=== PATIENT | male | born 1955 ===

== ENCOUNTER 2018-02-17 10:03 | Inpatient (IN) | payer OTHER ==
[2018-02-17 10:04] VITALS: BMI 30.7
[2018-02-17] MEDS ORDERED: HYDROmorphone 1 mg/ml ISec IVP STA (10:10)
[2018-02-17] MEDS ORDERED: TDAP Vaccine 0.5 mL Syr IM ONE (10:11)
[2018-02-17] MEDS ORDERED: Sodium Chloride 0.9% 500 ML IV ONE (10:11)
[2018-02-17 10:39] LABS: BASO # 0.03 K/mm3 (0.0-2.0); BASO % 0.3 % (0.0-3.0); EOS # 0.5 (0.0-0.7); EOS % 5.8 % (1.5-5.0); GRAN # 3.79 (1.4-6.5); GRAN % 42.1 % (50.0-68.0); HEMOGLOBIN 14.9 g/dL (14.0-18.0); LYMPH % 44.6 % (22.0-35.0); MEAN CELL VOLUME 84.6 fl (80.0-105.0); MEAN CORPUSCULAR HEMOGLOBIN 28.7 pg (25.0-35.0); MEAN CORPUSCULAR HGB CONC 33.9 g/dl (31.0-37.0); MEAN PLATELET VOLUME 10.4 fl (7.0-11.0); MONO # 0.7 (0.1-0.6); MONO % 7.2 % (1.0-6.0); RBC 5.2 10^6/uL (3.5-6.1)
--- NOTE | 2018-02-17 10:42 | ED PDOC ---
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 Patient states he was in his rig and was attempting to open the truck door when he fell backwards, sustaining injury to his right upper leg and an abrasion to his upper lip from hitting the truck. Patient denies any head injury or any loss of consciousness. Patient denies any neck or back pain. Patient denies any chest pain, SOB, headache or dizziness. Patient denies any other somatic complaints. Patient admits to occasional drinking but denies any smoking cigarettes. 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 No other trauma. Past Medical History - Provider Review Nursing Documentation Reviewed: Yes Family/Social History - Physician Review Nursing Documentation Reviewed: Yes Family/Social History: Unknown Family HX Smoking Status: Never Smoked Hx Alcohol Use: Yes Frequency of alcohol use: Socially Hx Substance Use: No Allergies/Home Meds Allergies/Adverse Reactions: Allergies No Known Allergies Allergy (Verified 02/17/18 10:08) Review of Systems - Physician Review All systems were reviewed & negative as marked: Yes - Review of Systems Constitutional: absent: Fevers Respiratory: absent: SOB, Cough Cardiovascular: absent: Chest Pain Gastrointestinal: absent: Abdominal Pain, Diarrhea, Nausea, Vomiting Musculoskeletal: Other (right upper leg discomfort). absent: Back Pain, Neck Pain Skin: Other (abrasion to left sided upper lip) Neurological: absent: Headache, Dizziness, Focal Weakness Physical Exam Vital Signs Reviewed: Yes Vital Signs Temp Pulse Resp BP Pulse Ox 02/17/18 10:09 98.0 F 85 20 151/102 H 100 Temperature: Afebrile Blood Pressure: Hypertensive Pulse: Regular Respiratory Rate: Normal Appearance: Positive for: Well-Appearing, Non-Toxic, Uncomfortable Pain Distress: Severe Mental Status: Positive for: other (awake and alert) - Systems Exam Head: Present: Atraumatic, Normocephalic Pupils: Present: PERRL Extroacular Muscles: Present: EOMI Conjunctiva: Present: Normal Mouth: Present: Moist Mucous Membranes Neck: Present: Normal Range of Motion. No: MIDLINE TENDERNESS, Paraspinal Tenderness Respiratory/Chest: Present: Clear to Auscultation, Good Air Exchange. No: Respiratory Distress, Accessory Muscle Use Cardiovascular: Present: Regular Rate and Rhythm, Normal S1, S2. No: Murmurs Abdomen: No: Tenderness, Distention, Peritoneal Signs, Rebound, Guarding Back: Present: Normal Inspection. No: CVA Tenderness, Paraspinal Tenderness Upper Extremity: Present: Normal Inspection. No: Cyanosis, Edema Lower Extremity: Present: NORMAL PULSES, Tenderness (tenderness to right thigh ), Swelling (swelling to right thigh with deformity), Deformity, Neurovascularly Intact. No: Edema Neurological: Present: GCS=15, CN II-XII Intact, Speech Normal, Motor Func Grossly Intact Skin: Present: Warm, Dry, Normal Color. No: Rashes Psychiatric: Present: Alert, Oriented x 3, Normal Insight, Normal Concentration Medical Decision Making ED Course and Treatment: 02/17/18 10:30 Impression: 62 year old male presents to the ED complaining of right upper leg discomfort s/p fall. Plan: -- Labs -- EKG -- Chest X-ray -- Tdap -- X-ray of right femur -- X-ray of Pelvis -- UA Progress Notes: 02/17/18 12:03 EKG shows normal sinus rhythm rate approximately [address] or T-wave changes. 02/17/18 12:42 Orthopedist, , is scrubbed and we are waiting for a call back. - RAD Interpretation Radiology Orders: 02/17/18 10:11 Femur Right [FEMUR MIN 2 VIEWS RT] [RAD] Stat 02/17/18 10:12 CHEST ONE VIEW [RAD] Stat PELVIS ONE VIEW [RAD] Stat - Medication Orders Current Medication Orders: Sodium Chloride (Sodium Chloride 0.9%) 500 mls @ 500 mls/hr IV ONCE ONE Stop: 02/17/18 11:10 Last Admin: 02/17/18 10:22 Dose: 500 mls/hr eMAR Start Stop Document 02/17/18 10:22 KV (Rec: 02/17/18 10:22 KV [employer] [facility] [employer]-ER-[id number]) Intravenous Solution Start Date 02/17/18 Start Time 10:22 Discontinued Medications Hydromorphone HCl (Dilaudid) 1 mg IVP STAT STA Stop: 02/17/18 10:11 Last Admin: 02/17/18 10:29 Dose: 1 mg MAR Pain Assessment Document 02/17/18 10:29 KV (Rec: 02/17/18 10:30 KV [employer] [facility] [employer]-ER-21) Pain Reassessment Is this a pain reassessment? No Sleep Is patient sleeping during reassessment? No Presence of Pain Presence of Pain Yes Pain Scale Used Protocol: PSCALES Pain Scale Used Numeric Location Left, Right or Bilateral Right Pain Location Body Site Leg Description Description Constant Intensity of Pain at present 10 Pain Behavior Crying Guarding Irritability Alleviating Factors/Management Medication Techniques Alleviating Factors Medication IVP Administration Document 02/17/18 10:29 KV (Rec: 02/17/18 10:30 KV [employer] [facility] [employer]-ER-21) Charges for Administration # of IVP Administrations 1 Ondansetron HCl (Zofran Inj) 4 mg IVP ONCE ONE Stop: 02/17/18 10:12 Last Admin: 02/17/18 10:20 Dose: 4 mg IVP Administration Document 02/17/18 10:20 KV (Rec: 02/17/18 10:20 KV [employer] [facility] [employer]-ER-21) Charges for Administration # of IVP Administrations 1 Tetanus/Reduced Diphtheria/Acell Pertussis (Boostrix Vaccine Inj) 0.5 ml IM .ONCE ONE Stop: 02/17/18 10:12 Last Admin: 02/17/18 10:20 Dose: 0.5 ml - Scribe Statement The provider has reviewed the documentation as recorded by the Scribe Steven Cruz. All medical record entries made by the Scribe were at my direction and persona lly dictated by me. I have reviewed the chart and agree that the record accurately reflects my personal performance of the history, physical exam, medical decision making, and the department course for this patient. I have also personally directed, reviewed, and agree with the discharge instructions and disposition. Disposition/Present on Arrival - Present on Arrival Any Indicators Present on Arrival: No History of DVT/PE: No History of Uncontrolled Diabetes: No Urinary Catheter: No History of Decub. Ulcer: No History Surgical Site Infection Following: None - Disposition Have Diagnosis and Disposition been Completed?: Yes Diagnosis: Femur fracture, right Disposition: HOSPITALIZED Disposition Time: 11:12 Patient Plan: Admission Patient Problems: Current Active Problems Problem Status Onset Femur fracture, right Acute Condition: FAIR
[2018-02-17 10:43] LABS: PARTIAL THROMBOPLASTIN TIME 25.4 Seconds (25.1-36.5); PROTHROMBIN TIME 11.5 SECONDS (9.4-12.5)
[2018-02-17 10:50] LABS: ALB/GLOB RATIO 1.5 (1.1-1.8); ALBUMIN 4.5 g/dL (3.0-4.8); ALT/SGPT 40 U/L (7-56); AST/SGOT 31 U/L (17-59); BLOOD UREA NITROGEN 14 mg/dL (7-21); CALCIUM 9.4 mg/dL (8.4-10.5); GFR NON-AFRICAN AMERICAN > 60
[2018-02-17 11:01] LABS: TROPONIN I < 0.01 ng/mL
--- NOTE | 2018-02-17 11:35 | CP.PCM.HP ---
<Alexey Gimenez - Last Filed: 02/17/18 14:08> History of Present Illness - History of Present Illness History of Present Illness: Alexey Gimenez, PGY1 H&P for Dr. Kessler cc: Right lower extremity pain s/p fall Patient is a 62 year old [place]-speaking male(scabbler used for interpretation) with no significant PMHx who presented to the ED complaining of severe right lower extremity pain s/p fall. 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 Patient also had an abrasion to the upper lip as he fell and hit the truck. Patient denies any trauma to the head. He denies any loss of consciousness. Patient does not recall the downtime of the incident. In the ED, vital signs were stable except for BP 151/102. Patient had CXR which was negative for acute pathology. Labs were unremarkable. Patient had xray of the right femur which showed a comminuted displaced fracture of the proximal shaft of the femur with separation of the lesser trochanter. In the ED, patient was given dilaudid 1mg IVP which he said helped with his pain. He endorses R- hip/lower extremity pain with tingling the both legs. Denies cp, sob, night sweats, lightheadedness, dizziness, or fatigue. A full 12 point ROS was conducted and unremarkable except as stated above. 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 Denies smoking. Patient drinks socially. Denies recreational drug use. FHx: non-contributory. Present on Admission - Present on Admission Any Indicators Present on Admission: No History of DVT/PE: No History of Uncontrolled Diabetes: No Urinary Catheter: No Decubitus Ulcer Present: No Review of Systems - Review of Systems All systems: reviewed and no additional remarkable complaints except (as per HPI.) Past Patient History - Past Social History Smoking Status: Never Smoked - PSYCHIATRIC Hx Substance Use: No - SURGICAL HISTORY Hx Surgeries: No - ANESTHESIA Hx Anesthesia: No Meds Allergies/Adverse Reactions: Allergies Allergy/AdvReac Type Severity Reaction Status Date / Time No Known Allergies Allergy Verified 02/17/18 10:08 Physical Exam - Constitutional Appears: In Acute Distress - Head Exam Additional comments: Patient has a laceration at the upper lip. Minimal blood. No other lacerations were noted. - Eye Exam Eye Exam: EOMI, Normal appearance, PERRL Pupil Exam: NORMAL ACCOMODATION, PERRL - ENT Exam ENT Exam: Mucous Membranes Moist, Normal Exam - Respiratory Exam Respiratory Exam: Clear to Auscultation Bilateral, NORMAL BREATHING PATTERN. absent: Rales, Rhonchi, Wheezes - Cardiovascular Exam Cardiovascular Exam: REGULAR RHYTHM, +S1, +S2 - GI/Abdominal Exam GI & Abdominal Exam: Normal Bowel Sounds, Soft. absent: Firm, Guarding, Rebound, Rigid, Tenderness - Extremities Exam Extremities exam: Positive for: tenderness, pedal pulses present. Negative for: full ROM Additional comments: Limited ROM of the right lower extremity. Patient keeps his right leg in external rotation. Pain with movement of the extremity. Distal LE pulses are intact, +2. Sensation is intact bilaterally. - Back Exam Back exam: NORMAL INSPECTION - Skin Skin Exam: Dry, Intact, Normal Color, Warm Results - Vital Signs Recent Vital Signs: Last Vital Signs Temp 98.0 F 02/17/18 10:09 Pulse 85 02/17/18 10:09 Resp 20 02/17/18 10:09 BP 151/102 H 02/17/18 10:09 Pulse Ox 100 02/17/18 10:09 - Labs Result Diagrams: 02/17/18 10:15 02/17/18 10:15 Labs: Laboratory Results - last 24 hr 02/17/18 02/17/18 02/17/18 10:15 10:15 10:15 WBC 9.0 RBC 5.20 Hgb 14.9 Hct 44.0 MCV 84.6 MCH 28.7 MCHC 33.9 RDW 13.0 Plt Count 244 MPV 10.4 Gran % 42.1 L Lymph % (Auto) 44.6 H [place] % (Auto) 7.2 H Eos % (Auto) 5.8 H Baso % (Auto) 0.3 Gran # 3.79 Lymph # (Auto) 4.0 H [place] # (Auto) 0.7 H Eos # (Auto) 0.5 Baso # (Auto) 0.03 PT 11.5 INR 1.00 APTT 25.4 Sodium 138 Potassium 3.9 Chloride 103 Carbon Dioxide 22 Anion Gap 17 BUN 14 Creatinine 0.9 Est GFR ( Amer) > 60 Est GFR (Non-Af Amer) > 60 Random Glucose 182 H Calcium 9.4 Magnesium 1.8 Total Bilirubin 0.7 AST 31 ALT 40 Alkaline Phosphatase 83 Lactate Dehydrogenase 480 Total Creatine Kinase 117 Troponin I < 0.01 Total Protein 7.6 Albumin 4.5 Globulin 3.1 Albumin/Globulin Ratio 1.5 Assessment & Plan - Assessment and Plan (Free Text) Assessment: Patient is a 62 year old [place]-speaking male (scabbler used for interpretation) with no significant PMHx who presented to the ED complaining of severe right lower extremity pain s/p fall from a rig. Patient's XR of the R- femur showed a comminuted displaced fracture of the proximal shaft of the femur with separation of the lesser trochanter. Plan: Displaced Right proximal shaft femoral fracture s/p fall - Ortho was consulted (Dr. Kat). Patient will need to go to OR. Case was discussed with Orthopedic surgeon. - morphine 4mg IVP q4 for right lower extremity pain. - NPO - EKG: NSR, 90 bpm with no acute ST or T wave changes - 1/2 NS @ rate of 100 ms/hr - Xray of the right femur: comminuted displaced fracture of the proximal shaft of the femur with separation of the lesser trochanter - Given dalaudid 1mg IVP in the ED - Patient also has laceration on the upper lip due to fall; no surgical intervention is required at this time HTN 2/2 pain - BP 151/102 GI ppx: PTX Case was reviewed and discussed with Attending Physician, Dr. Kessler. <Nicole Kessler - Last Filed: 02/17/18 18:00> Results - Vital Signs Recent Vital Signs: Last Vital Signs Temp 99 F 02/17/18 14:00 Pulse 107 H 02/17/18 14:00 Resp 16 02/17/18 14:12 BP 140/90 02/17/18 14:00 Pulse Ox 100 02/17/18 14:00 - Labs Result Diagrams: 02/17/18 10:15 02/17/18 10:15 Labs: Laboratory Results - last 24 hr 02/17/18 02/17/18 02/17/18 10:15 10:15 10:15 WBC 9.0 RBC 5.20 Hgb 14.9 Hct 44.0 MCV 84.6 MCH 28.7 MCHC 33.9 RDW 13.0 Plt Count 244 MPV 10.4 Gran % 42.1 L Lymph % (Auto) 44.6 H [place] % (Auto) 7.2 H Eos % (Auto) 5.8 H Baso % (Auto) 0.3 Gran # 3.79 Lymph # (Auto) 4.0 H [place] # (Auto) 0.7 H Eos # (Auto) 0.5 Baso # (Auto) 0.03 PT 11.5 INR 1.00 APTT 25.4 Sodium 138 Potassium 3.9 Chloride 103 Carbon Dioxide 22 Anion Gap 17 BUN 14 Creatinine 0.9 Est GFR ( Amer) > 60 Est GFR (Non-Af Amer) > 60 Random Glucose 182 H Calcium 9.4 Magnesium 1.8 Total Bilirubin 0.7 AST 31 ALT 40 Alkaline Phosphatase 83 Lactate Dehydrogenase 480 Total Creatine Kinase 117 Troponin I < 0.01 Total Protein 7.6 Albumin 4.5 Globulin 3.1 Albumin/Globulin Ratio 1.5 Blood Type Blood Type Confirm Antibody Screen BBK History Checked 02/17/18 02/17/18 10:15 10:25 WBC RBC Hgb Hct MCV MCH MCHC RDW Plt Count MPV Gran % Lymph % (Auto) [place] % (Auto) Eos % (Auto) Baso % (Auto) Gran # Lymph # (Auto) [place] # (Auto) Eos # (Auto) Baso # (Auto) PT INR APTT Sodium Potassium Chloride Carbon Dioxide Anion Gap BUN Creatinine Est GFR ( Amer) Est GFR (Non-Af Amer) Random Glucose Calcium Magnesium Total Bilirubin AST ALT Alkaline Phosphatase Lactate Dehydrogenase Total Creatine Kinase Troponin I Total Protein Albumin Globulin Albumin/Globulin Ratio Blood Type O POSITIVE Blood Type Confirm O POSITIVE Antibody Screen Negative BBK History Checked No verified bt Attending/Attestation - Attestation I have personally seen and examined this patient.: Yes I have fully participated in the care of the patient.: Yes I have reviewed all pertinent clinical information: Yes Notes (Text): 02/17/18 17:54 62 year old male with no significant past medical history who presented s/p fall from his truck. He was found to have a comminuted displaced fracture of the proximal shaft of the femur with separation of the lesser trochanter on xray. CT hip is ordered. CXR was negative and EKG showed sinus rhythm without any ischemic signs. Orthopedics is notified for possible OR. Continue with NPO for now with morphine prn. Elevated BP likely secondary to pain. Will monitor for now. Nicole Kessler MD Hospitalist.
--- NOTE | 2018-02-17 11:36 | RAD ---
Date of service: 02/17/2018 PROCEDURE: CHEST RADIOGRAPH, 1 VIEW HISTORY: OR COMPARISON: None available. FINDINGS: LUNGS: Clear. PLEURA: No pneumothorax or pleural fluid seen. CARDIOVASCULAR: No aortic atherosclerotic calcification present. Mild cardiomegaly OSSEOUS STRUCTURES: No significant abnormalities. VISUALIZED UPPER ABDOMEN: Normal. OTHER FINDINGS: None. IMPRESSION: No active disease.
--- NOTE | 2018-02-17 12:00 | RAD ---
Date of service: 02/17/2018 PROCEDURE: Right femur HISTORY: trauma COMPARISON: TECHNIQUE: Three views FINDINGS: There is a comminuted displaced fracture of the proximal shaft of the humerus with separation of the lesser trochanter. The femoral neck and greater trochanter are intact. The distal femur is unremarkable IMPRESSION: As above
[2018-02-17] MEDS: Morphine 4 mg/ml ISec IVP PRN ×2 (14:30→21:19)
[2018-02-17] MEDS: Sodium Chloride 0.45% 1,000 ML IV SCH (16:40)
--- NOTE | 2018-02-17 18:03 | RAD ---
Date of service: 02/17/2018 PROCEDURE: Right femur HISTORY: s/p fall; R-femur fx COMPARISON: February 17, 2018 TECHNIQUE: Standard protocol for this study/examination. FINDINGS: Comminuted proximal right femoral fracture better visualized on concurrent CT scan. IMPRESSION: Acute, comminuted fracture proximal right femur.
--- NOTE | 2018-02-17 18:03 | CT ---
Date of service: 02/17/2018 PROCEDURE: CT right lower extremity HISTORY: fall with r-femur fx COMPARISON: February 17, 2018 TECHNIQUE: 2.5 mm axial acquisition and display. Coronal and sagittal reconstructions. Dose report (mGy-cm): 656.94 FINDINGS: Oblique, comminuted fracture through the proximal right femur. Avulsion of the lesser trochanter. 1 shaft's with overriding of the major fracture fragments. A component of impaction identified. Edematous changes within the adductor muscles likely reflects a component of hemorrhage. Preservation of femoral acetabular relationship. Degenerative changes right hip. IMPRESSION: Acute common comminuted fracture proximal left femur described in greater detail above. Edematous changes primarily within adductor musculature. If compartment syndrome is suspected follow-up imaging advised.
--- NOTE | 2018-02-17 19:54 | CARD ---
APPROVED REPORT Date of service: 02/17/2018 EKG Measurement Heart [id number] <Conclusion> Normal sinus rhythm Normal ECG
[2018-02-18] MEDS: Sodium Chloride 0.45% 1,000 ML IV SCH (03:40)
[2018-02-18] MEDS: Morphine 4 mg/ml ISec IVP PRN ×2 (04:36→10:49)
[2018-02-18 07:15] LABS: HEMOGLOBIN 12.9 g/dL (14.0-18.0); MEAN CELL VOLUME 84.8 fl (80.0-105.0); MEAN CORPUSCULAR HGB CONC 33.1 g/dl (31.0-37.0); MEAN PLATELET VOLUME 10.2 fl (7.0-11.0); RBC 4.6 10^6/uL (3.5-6.1); RED CELL DISTRIBUTION WIDTH 13.3 % (11.5-14.5); WHITE BLOOD COUNT 10.1 10^3/uL (4.5-11.0)
[2018-02-18 07:23] LABS: ALB/GLOB RATIO 1.3 (1.1-1.8); ALBUMIN 3.6 g/dL (3.0-4.8); ALT/SGPT 39 U/L (7-56); AST/SGOT 33 U/L (17-59); BLOOD UREA NITROGEN 11 mg/dL (7-21); CALCIUM 8.6 mg/dL (8.4-10.5); GFR NON-AFRICAN AMERICAN > 60
--- NOTE | 2018-02-18 16:35 | CP.PCM.PN ---
<Alexey Gimenez - Last Filed: 02/18/18 16:31> Subjective - Date & Time of Evaluation Date of Evaluation: 02/18/18 Time of Evaluation: 07:00 - Subjective Subjective: Alexey Gimenez PGY1 Medicine Progress Note for Dr. Monroy Patient was seen and examined at bedside this morning. Vital signs stable. No acute overnight events. Patient is still c/p right leg pain and numbness and tingling in the lower extremities. Patient denies cp, sob, abdominal pain, n/v/d. Patient was told that he would be going for orthopedic surgery this afternoon. A full 12 point ROS was conducted and unremarkable except as stated above. Objective - Vital Signs/Intake and Output Vital Signs (last 24 hours): Temp Pulse Resp BP Pulse Ox 99 F 98 H 18 144/92 H 100 02/18/18 14:35 02/18/18 14:35 02/18/18 14:35 02/18/18 14:35 02/18/18 14:35 - Medications Medications: Current Medications Sodium Chloride (Sodium Chloride 0.45%) 1,000 mls @ 100 mls/hr IV .Q10H [facility] Last Admin: 02/18/18 03:40 Dose: 100 mls/hr Morphine Sulfate (Morphine) 4 mg IVP Q4H PRN PRN Reason: Pain, severe (8-10) Last Admin: 02/18/18 10:49 Dose: 4 mg Ondansetron HCl (Zofran Inj) 4 mg IVP Q4H PRN PRN Reason: Nausea/Vomiting Pantoprazole Sodium (Protonix Inj) 40 mg IVP DAILY [facility] Last Admin: 02/18/18 10:50 Dose: 40 mg - Labs Labs: 02/18/18 06:45 02/18/18 06:45 PT 11.5 SECONDS (9.4-12.5) 02/17/18 10:15 INR 1.00 02/17/18 10:15 APTT 25.4 Seconds (25.1-36.5) 02/17/18 10:15 - Constitutional Appears: In Acute Distress - Head Exam Additional comments: Laceration of upper lip. - Eye Exam Eye Exam: EOMI, Normal appearance, PERRL - ENT Exam ENT Exam: Mucous Membranes Moist, Normal Exam - Neck Exam Neck Exam: Full ROM, Normal Inspection. absent: Lymphadenopathy - Respiratory Exam Respiratory Exam: Clear to Ausculation Bilateral, NORMAL BREATHING PATTERN. absent: Rales, Rhonchi, Wheezes - Cardiovascular Exam Cardiovascular Exam: REGULAR RHYTHM, +S1, +S2. absent: Murmur - Extremities Exam Extremities Exam: absent: Calf Tenderness, Full ROM Additional comments: Right lower extremity is in external rotation. Painful to ROM. Sensation is intact bilaterally. Distal pulses intact +2. Left lower extremity is normal. - Neurological Exam Neurological Exam: Alert, Awake, Oriented x3 - Skin Skin Exam: Dry, Intact, Normal Color, Warm Assessment and Plan - Assessment and Plan (Free Text) Assessment: Patient is a 62 year old Vietnamese-speaking male (american sign language teacher used for interpretation) with no significant PMHx who presented to the ED complaining of severe right lower extremity pain s/p fall from a rig. Patient's XR of the R- femur showed a comminuted displaced fracture of the proximal shaft of the femur with separation of the lesser trochanter. Orthopedics was consulted. Patient will be going to the OR today. Plan: Displaced Right proximal shaft femoral fracture s/p fall - Ortho was consulted (Dr. Kat). Patient will be going to OR today at 5pm. Case was d/w orthopedic surgeon. - c/w morphine 4mg IVP q4 for right lower extremity pain. - NPO; advance diet after procedure as tolerated - EKG: NSR, 90 bpm with no acute ST or T wave changes - 1/2 NS @ rate of 100 ms/hr - Xray of the right femur: comminuted displaced fracture of the proximal shaft of the femur with separation of the lesser trochanter - Patient also has laceration on the upper lip due to fall; no surgical intervention is required at this time - CT hip: acute common communited fracture of proximal right femur. Edematous changes primarily within the adductor musculature. HTN 2/2 pain - resolved - BP 120/73 today GI ppx: PTX Dispo: patient will be going to the OR today at 5pm. Discussed with orthopedic surgery. Case was discussed and reviewed with Attending Physician, Dr. Monroy. <Fortino Monroy - Last Filed: 02/19/18 15:03> Objective - Vital Signs/Intake and Output Vital Signs (last 24 hours): Temp Pulse Resp BP Pulse Ox 100.5 F H 118 H 18 184/83 H 98 11/15/18 14:00 02/19/18 14:00 02/19/18 14:00 02/19/18 14:00 02/19/18 14:00 Intake and Output: 02/19/18 02/19/18 06:59 18:59 Intake Total 240 Output Total 600 Balance -360 - Medications Medications: Current Medications Docusate Sodium (Colace) 100 mg PO TID [facility] Last Admin: 02/19/18 14:43 Dose: 100 mg Enoxaparin Sodium (Lovenox) 40 mg SC DAILY [facility]; Protocol Last Admin: 02/19/18 10:00 Dose: 40 mg Hydromorphone HCl (Dilaudid) 0.5 mg IVP Q15M PRN PRN Reason: Pain, moderate (4-7) Last Admin: 02/18/18 22:10 Dose: 0.5 mg Hydromorphone HCl (Dilaudid 0.2 Mg/Ml Bone Char Operator) 30 mls @ 0 mls/hr IV PRN PRN; Protocol PRN Reason: SHUTTLER CAR PER MD ORDER Last Admin: 02/18/18 22:18 Dose: 0.001 mls/hr Sodium Chloride (Sodium Chloride 0.45%) 1,000 mls @ 70 mls/hr IV .[id number] [facility] Last Admin: 02/19/18 01:24 Dose: 70 mls/hr Morphine Sulfate (Morphine) 4 mg IVP Q4H PRN PRN Reason: Pain, severe (8-10) Last Admin: 02/18/18 10:49 Dose: 4 mg Ondansetron HCl (Zofran Inj) 4 mg IVP Q4H PRN PRN Reason: Nausea/Vomiting Pantoprazole Sodium (Protonix Inj) 40 mg IVP DAILY [facility] Last Admin: 02/19/18 10:01 Dose: 40 mg - Labs Labs: 02/19/18 06:20 02/19/18 06:20 PT 11.5 SECONDS (9.4-12.5) 02/17/18 10:15 INR 1.00 02/17/18 10:15 APTT 25.4 Seconds (25.1-36.5) 02/17/18 10:15 Attending/Attestation - Attestation I have personally seen and examined this patient.: Yes I have fully participated in the care of the patient.: Yes I have reviewed all pertinent clinical information, including history, physical exam and plan: Yes Notes (Text): 02/19/18 14:59 Medical record note made by the resident after discussion with my direction and input after the patient was personally seen and examined by me. I have reviewed the chart and agree that the record accurately reflects by personal performance of the history, physical exam, data review, and medical decision-making, in the course for the patient. I have also personally directed the plan of care. 62 yrs old male was admitted with fall found to have Right subtrochanteric/femoral shaft fractures, Patient is scheduled for right hip surgery today. We will continue supportive care, will need routing Physical therapy and DVT Prophylaxis after surgery. Management plan was discussed in detail with patient. Education was provided.
[2018-02-18] MEDS ORDERED: Bupivacaine 0.5% 50 ML IJ ONE (17:33)
[2018-02-18] MEDS ORDERED: Succinylcholine 200 mg/10 ml Inj IV ONE (17:57)
[2018-02-18] MEDS ORDERED: Midazolam 2 MG/2 ML VIAL ONE (18:05)
[2018-02-18] MEDS ORDERED: Rocuronium 10 mg/ml (5 ml) ONE ×2 (18:35→19:11)
[2018-02-18] MEDS ORDERED: Neostigmine Methylsulfate 3mg/3ml Syringe IV ONE (19:55)
[2018-02-18] MEDS ORDERED: Bupivacaine Liposomal Inj 20 ml ONE (20:25)
[2018-02-18] MEDS ORDERED: HYDROmorphone 0.2 mg/ml (30ml) 30 ML IV PRN (20:25)
[2018-02-18] MEDS ORDERED: Lactated Ringer's 1,000 ML IV SCH (20:30)
[2018-02-18] MEDS: HYDROmorphone 0.5 mg/0.5 ml ISec IVP PRN ×2 (21:40→22:10)
[2018-02-18] MEDS ORDERED: HYDROmorphone 0.5 mg/0.5 ml ISec ONE (21:42)
--- NOTE | 2018-02-18 21:44 | PCM.SURG1 ---
Surgeon's Initial Post Op Note - Surgeon's Notes Surgeon: Segundo Kat MD Agricultural Chemicals Inspector: Ruddy Velasquez PA-C Type of Anesthesia: General Endo Pre-Operative Diagnosis: Right subtrochanteric/femoral shaft fx Operative Findings: see op report Post-Operative Diagnosis: same as pre-op dx Operation Performed: ORIF/IM Nailing right femur fx Specimen/Specimens Removed: none Estimated Blood Loss: EBL {In ML}: 700 Date of Surgery/Procedure: 02/18/18 Time of Surgery/Procedure: 18:30
[2018-02-18] MEDS ORDERED: HYDROmorphone 0.2 mg/ml (30ml) 30 ML IV ONE (21:52)
[2018-02-18] MEDS ORDERED: HYDROmorphone 1 mg/ml ISec ONE (22:13)
[2018-02-19] MEDS ORDERED: ceFAZolin 1 gm in NS 1 GM/100 ML BAG IVPB ONE ×2 (01:00→07:00)
[2018-02-19] MEDS: Sodium Chloride 0.45% 1,000 ML IV SCH (01:24)
--- NOTE | 2018-02-19 01:45 | CON ---
DATE: 02/18/2018 CHIEF COMPLAINT: Right hip subtrochanteric fracture. HISTORY OF PRESENT ILLNESS: Patient is a 62-year-old male with no significant medical history, complaining of severe right hip pain after a fall. Patient had a work related injury. 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 When opened the truck, fell backwards on to his buttocks, had difficulty getting up. Patient was brought in to the emergency room by ambulance, which showed a displaced comminuted subtrochanteric fracture with extension to femoral shaft. Patient was admitted and examined by me at bedside. The right leg was shortened and externally rotated. Patient denies pain in any other extremity or joint. Denies any loss of consciousness. PAST MEDICAL HISTORY: Denies. PAST SURGICAL HISTORY: Denies. MEDICATIONS: No medications. ALLERGIES: NO KNOWN DRUG ALLERGIES. PHYSICAL EXAMINATION: On examination of patient's right leg, which was shortened and externally rotated. Has limited range of motion secondary to pain. Skin is intact and neurovascularly intact. IMAGING: X-rays and CT scan of patient's right hip is showing a displaced, comminuted right hip subtrochanteric fracture. ASSESSMENT: A 62-year-old male with right hip comminuted subtrochanteric fracture. TREATMENT PLAN: I had a detailed discussion with the patient and the , explaining the complex nature of the surgery. I had recommended closed versus open reduction, intramedullary nail fixation, all indicated procedures. I explained the risks of surgery and benefit and alternative of the procedure to the patient. Patient comprehended the risks and benefits and opted to proceed with the surgery. Segundo Kat MD
--- NOTE | 2018-02-19 06:51 | OP ---
PROCEDURE DATE: 02/18/2018 ATTENDING PHYSICIAN: Segundo Kat MD PREOPERATIVE DIAGNOSIS: Right hip comminuted displaced subtrochanteric fracture. POSTOPERATIVE DIAGNOSIS: Right hip comminuted displaced subtrochanteric fracture. PROCEDURE: 1. Open reduction and intramedullary nail fixation of right hip fracture. 2. Extensive bone and soft tissue debridement. 3. Fluoroscopic use for greater than 1 hour. SURGEON: Segundo Kat MD MEDICAL PLANNER: Ruddy Velasquez PA-C TYPE OF ANESTHESIA: General. ESTIMATED BLOOD LOSS: 700 mL IMPLANTS: Synthes TFN long nail. COMPLICATIONS: NONE. HISTORY: Patient is a 62-year-old male with a work related injury to his right hip. Patient was brought into the emergency room yesterday showing a displaced comminuted right hip subtrochanteric fracture. Patient was indicated for surgery. I reviewed the risks and benefits of the surgery with patient which included but not limited to bleeding, infection, neurovascular damage, continued pain, nonunion, malunion, symptomatic hardware, blood clots, limb loss and even . Patient and the family fully comprehended the risks and benefits and opted to proceed with the surgery. DESCRIPTION OF PROCEDURE: Patient was brought to preop holding area. A laterality sheet was completed confirming patient's right hip to be correct operative site. Right hip was marked. Patient was taken to the operating room, underwent general anesthesia and the right hip was draped and prepped in standard manner. Patient was placed on a fracture table with right leg in traction. AP and lateral radiographs were taken showing significant displacement. Decision was made to proceed with the open reduction. A lateral incision was made over the fracture site. There was extensive fracture hematoma. Extensive soft tissue debridement and bone debridement was performed with curette, pulse lavage and using multiple clamps, the fracture reduction was performed and confirmed in AP and lateral radiographs. Next, a separate 3 cm incision was made proximally and a starting wire was drilled, starting from the greater trochanter aiming towards the lesser trochanter. Open drill hole was made and the long ball-tipped guidewire was placed into the femoral shaft. Once satisfied with the wire placement, AP and lateral radiographs were taken. Next, the femoral shaft was sequentially leave up to 11.5 mm reamer, then a 10 mm x 380 mm Synthes nail was placed into the femoral shaft for fixation. A 95 mm length Helical blade was placed into the head-neck junction and the positioning was confirmed in AP and lateral radiographs. Next, 2 additional locking screws were placed. Final radiographs showing adequate fracture reduction once again using pulse lavage, extensive soft tissue debridement was performed and the wound was copiously irrigated using pulse lavage. Skin was closed in standard manner and sterile dressing was applied. Patient was extubated. He was transferred to the stretcher and taken to recovery room. There were no complications of surgery. Ruddy Velasquez, the certified physician golf course assistant who was present for the entirety of the case as her participation was crucial in the patient's positioning, retraction of critical neurovascular structures, fracture reduction, and successful completion of the surgery. Segundo Kat MD
[2018-02-19 07:01] LABS: BASO # 0.01 K/mm3 (0.0-2.0); BASO % 0.1 % (0.0-3.0); EOS % 0.4 % (1.5-5.0); GRAN # 7.08 (1.4-6.5); LYMPH # 1.6 (1.2-3.4); MEAN CELL VOLUME 85.2 fl (80.0-105.0); MEAN CORPUSCULAR HEMOGLOBIN 28.4 pg (25.0-35.0); MEAN CORPUSCULAR HGB CONC 33.3 g/dl (31.0-37.0); MONO # 1.4 (0.1-0.6); MONO % 13.5 % (1.0-6.0); RBC 3.45 10^6/uL (3.5-6.1); RED CELL DISTRIBUTION WIDTH 12.9 % (11.5-14.5); WHITE BLOOD COUNT 10.1 10^3/uL (4.5-11.0)
[2018-02-19 07:22] LABS: HEMOGLOBIN 9.8 g/dL (14.0-18.0)
[2018-02-19 08:06] LABS: ALB/GLOB RATIO 1.1 (1.1-1.8); ALBUMIN 2.7 g/dL (3.0-4.8); ALT/SGPT 36 U/L (7-56); AST/SGOT 60 U/L (17-59); BLOOD UREA NITROGEN 10 mg/dL (7-21); CALCIUM 7.3 mg/dL (8.4-10.5); GFR NON-AFRICAN AMERICAN > 60
[2018-02-19] MEDS: Enoxaparin 40 mg Syringe SC SCH (10:00)
--- NOTE | 2018-02-19 10:52 | RAD ---
Date of service: 02/18/2018 PROCEDURE: Fluoroscopy up to 1 hr HISTORY: O.R.I.F. RIGHT FEMUR FX. COMPARISON: TECHNIQUE: 237.6 sec of fluoro time. Cumulative dose 40.23 mGy. 6 images were submitted. FINDINGS: There is placement of an intramedullary shashank and compression screw in the right hip and femur. There is normal alignment. There are no complicating factor IMPRESSION: As above
--- NOTE | 2018-02-19 12:44 | CP.PCM.PN ---
<Alexey Gimenez - Last Filed: 02/19/18 16:47> Subjective - Date & Time of Evaluation Date of Evaluation: 02/19/18 Time of Evaluation: 07:00 - Subjective Subjective: Alexey Gimenez, PGY1 Medicine Progress Note for Dr. Monroy Patient was seen and examined at bedside this morning. Patient went to OR yesterday for ORIF of the right femur. Patient had x1 pRBC transfusion during the procedure. No overnight events. However, patient did have tachycardia overnight. HR was 118. Otherwise, patient only endorses 7/10 right leg pain. No cp, sob, n/v/d, numbness/tingling of extremities, fevers/chills. A full 12 point ROS was conducted and unremarkable except as stated above. Objective - Vital Signs/Intake and Output Vital Signs (last 24 hours): Temp Pulse Resp BP Pulse Ox 99.4 F 118 H 18 123/87 97 02/19/18 06:00 02/19/18 06:00 02/19/18 06:00 02/19/18 06:00 02/19/18 06:00 Intake and Output: 02/19/18 02/19/18 06:59 18:59 Intake Total 240 Output Total 600 Balance -360 - Medications Medications: Current Medications Docusate Sodium (Colace) 100 mg PO TID [facility] Last Admin: 02/19/18 10:01 Dose: 100 mg Enoxaparin Sodium (Lovenox) 40 mg SC DAILY [facility]; Protocol Last Admin: 02/19/18 10:00 Dose: 40 mg Hydromorphone HCl (Dilaudid) 0.5 mg IVP Q15M PRN PRN Reason: Pain, moderate (4-7) Last Admin: 02/18/18 22:10 Dose: 0.5 mg Hydromorphone HCl (Dilaudid 0.2 Mg/Ml [employer]) 30 mls @ 0 mls/hr IV PRN PRN; Protocol PRN Reason: SENIOR LITIGATION PARALEGAL PER MD ORDER Last Admin: 02/18/18 22:18 Dose: 0.001 mls/hr Sodium Chloride (Sodium Chloride 0.45%) 1,000 mls @ 70 mls/hr IV .[id number] [facility] Last Admin: 02/19/18 01:24 Dose: 70 mls/hr Morphine Sulfate (Morphine) 4 mg IVP Q4H PRN PRN Reason: Pain, severe (8-10) Last Admin: 02/18/18 10:49 Dose: 4 mg Ondansetron HCl (Zofran Inj) 4 mg IVP Q4H PRN PRN Reason: Nausea/Vomiting Pantoprazole Sodium (Protonix Inj) 40 mg IVP DAILY [facility] Last Admin: 02/19/18 10:01 Dose: 40 mg - Labs Labs: 02/19/18 06:20 02/19/18 06:20 PT 11.5 SECONDS (9.4-12.5) 02/17/18 10:15 INR 1.00 02/17/18 10:15 APTT 25.4 Seconds (25.1-36.5) 02/17/18 10:15 - Constitutional Appears: No Acute Distress - Head Exam Head Exam: ATRAUMATIC, NORMAL INSPECTION, NORMOCEPHALIC - Eye Exam Eye Exam: EOMI, Normal appearance, PERRL - ENT Exam ENT Exam: Mucous Membranes Moist, Normal Exam - Neck Exam Neck Exam: Full ROM, Normal Inspection. absent: Lymphadenopathy - Respiratory Exam Respiratory Exam: Clear to Ausculation Bilateral, NORMAL BREATHING PATTERN. absent: Rales, Rhonchi, Wheezes - Cardiovascular Exam Cardiovascular Exam: REGULAR RHYTHM, +S1, +S2. absent: Murmur - GI/Abdominal Exam GI & Abdominal Exam: Soft, Normal Bowel Sounds. absent: Firm, Guarding, Rigid, Tenderness - Extremities Exam Extremities Exam: absent: Calf Tenderness Additional comments: s/p ORIF. Dressing applied by ortho. No hematoma or bleed noted. - Neurological Exam Neurological Exam: Alert, Awake, CN II-XII Intact, Oriented x3 - Skin Skin Exam: Dry, Intact, Normal Color, Warm Assessment and Plan - Assessment and Plan (Free Text) Assessment: Patient is a 62 year old Tamazight-speaking male (health information tech used for interpretation) with no significant PMHx who presented to the ED complaining of severe right lower extremity pain s/p fall from a rig. Patient's XR of the R- femur showed a comminuted displaced fracture of the proximal shaft of the femur with separation of the lesser trochanter. Orthopedics was consulted. Patient is POD#1 for ORIF of Right femur. Plan: Fall - s/p ORIF of the R-subtrochanteric/femoral shaft fracture (POD#1) - c/w pain control; dilaudid and morphine 4mg IVP q4 prn - Ortho was consulted (Dr. Kat). Patient went for ORIF on 02/18. Patient had x1 pRBC during procedure - H/H is stable - Heart Healthy Diet - NS at 70 mls/hr - Xray of the right femur: comminuted displaced fracture of the proximal shaft of the femur with separation of the lesser trochanter - Patient also has laceration on the upper lip due to fall; no surgical intervention is required at this time - CT hip: acute common communited fracture of proximal right femur. Edematous changes primarily within the adductor musculature. Post-op fever with tachycardia - Temp 100.5 this afternoon - Tylenol prn - monitor for fevers - f/u CXR, blood cx, UA and Urine cx - HR was 118; ekg ordered - spirometry encouraged - EKG: sinus tachy with no acute changes; patient is asymptomatic HTN 2/2 pain - improved - BP 123/87 GI ppx: PTX Dispo: patient is s/p ORIF of the Right subtrochanteric/femoral shaft fracture. Pending PT eval. Case was discussed and reviewed with Attending Physician, Dr. Monroy. <Fortino Monroy - Last Filed: 02/21/18 13:35> Objective - Vital Signs/Intake and Output Vital Signs (last 24 hours): Temp Pulse Resp BP Pulse Ox 99.2 F 102 H 20 116/70 96 02/21/18 07:00 02/21/18 07:00 02/21/18 07:00 02/21/18 07:00 02/21/18 07:00 Intake and Output: 02/21/18 02/21/18 06:59 18:59 Intake Total 240 Balance 240 - Medications Medications: Current Medications Acetaminophen (Tylenol 325mg Tab) 650 mg PO Q6H PRN PRN Reason: Fever >100.4 F Last Admin: 02/20/18 14:20 Dose: 650 mg Docusate Sodium (Colace) 100 mg PO TID [facility] Last Admin: 02/21/18 08:40 Dose: 100 mg Enoxaparin Sodium (Lovenox) 40 mg SC DAILY [facility]; Protocol Last Admin: 02/20/18 10:15 Dose: 40 mg Hydromorphone HCl (Dilaudid 0.2 Mg/Ml [employer]) 30 mls @ 0 mls/hr IV PRN PRN; Protocol PRN Reason: SENIOR LITIGATION PARALEGAL PER MD ORDER Last Admin: 02/18/18 22:18 Dose: 0.001 mls/hr Sodium Chloride (Sodium Chloride 0.45%) 1,000 mls @ 70 mls/hr IV .[id number] [facility] Last Admin: 02/20/18 05:47 Dose: 70 mls/hr Vancomycin HCl (Vancomycin 1gm) 1 gm in 250 mls @ 167 mls/hr IVPB Q12H [facility]; Protocol Last Admin: 02/21/18 05:15 Dose: 167 mls/hr Piperacillin Sod/Tazobactam Sod (Zosyn 3.375 In Ns 100ml) 100 mls @ 25 mls/hr IVPB Q8 [facility]; Protocol Stop: 02/27/18 22:01 Last Admin: 02/21/18 05:15 Dose: 25 mls/hr Ibuprofen (Motrin Tab) 600 mg PO Q6H PRN PRN Reason: Fever >100.4 F Last Admin: 02/20/18 18:06 Dose: 600 mg Morphine Sulfate (Morphine) 4 mg IVP Q4H PRN PRN Reason: Pain, severe (8-10) Last Admin: 02/18/18 10:49 Dose: 4 mg Ondansetron HCl (Zofran Inj) 4 mg IVP Q4H PRN PRN Reason: Nausea/Vomiting Pantoprazole Sodium (Protonix Ec Tab) 40 mg PO ACB [facility] Last Admin: 02/21/18 08:40 Dose: 40 mg Polyethylene Glycol (Miralax) 17 gm PO BID [facility] - Labs Labs: 02/21/18 12:20 02/21/18 06:00 PT 11.5 SECONDS (9.4-12.5) 02/17/18 10:15 INR 1.00 02/17/18 10:15 APTT 25.4 Seconds (25.1-36.5) 02/17/18 10:15 Attending/Attestation - Attestation I have personally seen and examined this patient.: Yes I have fully participated in the care of the patient.: Yes I have reviewed all pertinent clinical information, including history, physical exam and plan: Yes Notes (Text): 02/21/18 13:33 Medical record note made by the resident after discussion with my direction and input after the patient was personally seen and examined by me. I have reviewed the chart and agree that the record accurately reflects by personal performance of the history, physical exam, data review, and medical decision-making, in the course for the patient. I have also personally directed the plan of care. 62 yrs old male was admitted with fall found to have Right s ubtrochanteric/femoral shaft fractures, Patient is SP ORIF yesterday, having low grade fever likely Post operative. Chest X ray is negative for Pneumonia. Sinus tachycardia is due to Pain and low grade fever, we will monitor. Management plan was discussed in detail with patient. Education was provided.
--- NOTE | 2018-02-19 13:51 | CARD ---
APPROVED REPORT Date of service: 02/19/2018 EKG Measurement Heart [id number] <Conclusion> Sinus tachycardia Left axis deviation Minimal voltage criteria for LVH, may be normal variant Abnormal ECG
--- NOTE | 2018-02-19 14:13 | RAD ---
Date of service: 02/19/2018 HISTORY: r/o PNA s/p surgery COMPARISON: 02/17/2018 FINDINGS: LUNGS: No active pulmonary disease. PLEURA: No significant pleural effusion identified, no pneumothorax apparent. CARDIOVASCULAR: No aortic atherosclerotic calcification present. Normal cardiac size. No pulmonary vascular congestion. OSSEOUS STRUCTURES: No significant abnormalities. VISUALIZED UPPER ABDOMEN: Normal. OTHER FINDINGS: None. IMPRESSION: No active disease.
[2018-02-19 21:47] LABS: URINE BILIRUBIN NEGATIVE (NEGATIVE); URINE BLOOD SMALL (NEGATIVE); URINE GLUCOSE (UA) >=1000 mg/dL (NEGATIVE); URINE LEUKOCYTE ESTERASE NEGATIVE Leu/uL (NEGATIVE); URINE PROTEIN NEGATIVE mg/dL (<30 mg/dL); URINE UROBILINOGEN 0.2 E.U./dL (<1 E.U./dL)
[2018-02-19 21:52] LABS: URINE APPEARANCE CLEAR (CLEAR); URINE COLOR YELLOW (YELLOW)
[2018-02-19 22:04] LABS: URINE EPITHELIAL CELLS 0 - 2 /hpf (0-5); URINE RBC 0 - 2 /hpf (0-2); URINE WBC 0 - 2 /hpf (0-6)
[2018-02-19] MEDS ORDERED: ceFAZolin 1 gm in NS 1 GM/100 ML BAG IVPB STA (23:44)
[2018-02-20] MEDS: Sodium Chloride 0.45% 1,000 ML IV SCH (05:47)
[2018-02-20 06:46] LABS: BASO # 0.02 K/mm3 (0.0-2.0); BASO % 0.2 % (0.0-3.0); EOS # 0.2 (0.0-0.7); GRAN # 8.08 (1.4-6.5); GRAN % 70.9 % (50.0-68.0); HEMOGLOBIN 8.9 g/dL (14.0-18.0); LYMPH # 1.7 (1.2-3.4); LYMPH % 14.5 % (22.0-35.0); MEAN CELL VOLUME 84.3 fl (80.0-105.0); MEAN CORPUSCULAR HEMOGLOBIN 28.4 pg (25.0-35.0); MEAN CORPUSCULAR HGB CONC 33.7 g/dl (31.0-37.0); MONO # 1.4 (0.1-0.6); MONO % 12.4 % (1.0-6.0); RBC 3.13 10^6/uL (3.5-6.1); RED CELL DISTRIBUTION WIDTH 12.6 % (11.5-14.5); WHITE BLOOD COUNT 11.4 10^3/uL (4.5-11.0)
[2018-02-20 08:11] LABS: ALBUMIN 2.8 g/dL (3.0-4.8); ALT/SGPT 30 U/L (7-56); AST/SGOT 83 U/L (17-59); BLOOD UREA NITROGEN 9 mg/dL (7-21); CALCIUM 7.7 mg/dL (8.4-10.5); GFR NON-AFRICAN AMERICAN > 60
[2018-02-20 08:17] LABS: PH,URINE 6.5 (4.7-8.0); URINE BILIRUBIN NEGATIVE (NEGATIVE); URINE BLOOD SMALL (NEGATIVE); URINE GLUCOSE (UA) 250 mg/dL (NEGATIVE); URINE LEUKOCYTE ESTERASE NEGATIVE Leu/uL (NEGATIVE); URINE PROTEIN TRACE mg/dL (<30 mg/dL)
[2018-02-20 08:34] LABS: URINE APPEARANCE SL CLOUDY (CLEAR); URINE COLOR YELLOW (YELLOW)
[2018-02-20 08:37] LABS: URINE EPITHELIAL CELLS 0 - 2 /hpf (0-5); URINE RBC NEGATIVE /hpf (0-2)
--- NOTE | 2018-02-20 09:24 | RAD ---
Date of service: 02/19/2018 HISTORY: fever COMPARISON: 04/21/2017 FINDINGS: LUNGS: No active pulmonary disease. PLEURA: No significant pleural effusion identified, no pneumothorax apparent. CARDIOVASCULAR: No aortic atherosclerotic calcification present. Normal cardiac size. No pulmonary vascular congestion. OSSEOUS STRUCTURES: No significant abnormalities. VISUALIZED UPPER ABDOMEN: Normal. OTHER FINDINGS: None. IMPRESSION: No active disease.
[2018-02-20] MEDS: Enoxaparin 40 mg Syringe SC SCH (10:15)
--- NOTE | 2018-02-20 10:28 | CP.PCM.PN ---
Subjective - Date & Time of Evaluation Date of Evaluation: 02/20/18 Time of Evaluation: 10:22 - Subjective Subjective: Progress note for Dr. Kat 62 yo male seen and evaluated at bedside 2 days s/p right ORIF/IM Nailing femur fx. Seen resting comfortably in bed. States that he is in no pain today and denies N/V/F/C/SOB/CP. States that he felt a fever yesterday but today he is much better and has no complaints. Objective - Vital Signs/Intake and Output Vital Signs (last 24 hours): Temp Pulse Resp BP Pulse Ox 100.7 F H 110 H 20 125/80 95 02/20/18 06:00 02/20/18 06:00 02/20/18 06:00 02/20/18 06:00 02/20/18 06:00 Intake and Output: 02/20/18 02/20/18 06:59 18:59 Intake Total 360 Output Total 400 Balance -40 - Medications Medications: Current Medications Acetaminophen (Tylenol 325mg Tab) 650 mg PO Q6H PRN PRN Reason: Fever >100.4 F Last Admin: 02/20/18 05:55 Dose: 325 mg Docusate Sodium (Colace) 100 mg PO TID [facility] Last Admin: 02/19/18 17:50 Dose: 100 mg Enoxaparin Sodium (Lovenox) 40 mg SC DAILY [facility]; Protocol Last Admin: 02/19/18 10:00 Dose: 40 mg Hydromorphone HCl (Dilaudid 0.2 Mg/Ml [employer]) 30 mls @ 0 mls/hr IV PRN PRN; Protocol 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 Last Admin: 02/18/18 22:18 Dose: 0.001 mls/hr Sodium Chloride (Sodium Chloride 0.45%) 1,000 mls @ 70 mls/hr IV .[id number] [facility] Last Admin: 02/20/18 05:47 Dose: 70 mls/hr Morphine Sulfate (Morphine) 4 mg IVP Q4H PRN PRN Reason: Pain, severe (8-10) Last Admin: 02/18/18 10:49 Dose: 4 mg Ondansetron HCl (Zofran Inj) 4 mg IVP Q4H PRN PRN Reason: Nausea/Vomiting Pantoprazole Sodium (Protonix Inj) 40 mg IVP DAILY [facility] Stop: 02/20/18 11:01 Last Admin: 02/19/18 10:01 Dose: 40 mg Pantoprazole Sodium (Protonix Ec Tab) 40 mg PO ACB [facility] - Labs Labs: 02/20/18 06:00 02/20/18 06:00 PT 11.5 SECONDS (9.4-12.5) 02/17/18 10:15 INR 1.00 02/17/18 10:15 APTT 25.4 Seconds (25.1-36.5) 02/17/18 10:15 - Constitutional Appears: Well, Non-toxic, No Acute Distress - Head Exam Head Exam: ATRAUMATIC, NORMOCEPHALIC - Extremities Exam Extremities Exam: absent: Calf Tenderness, Pedal Edema Additional comments: Vasc: DP and PT pulses palpable; cap refill <3 seconds to all digits; mild edema noted proximal to the right knee; temp gradient warm to cool from proximal to distal Derm: surgical dressings intact, clean, and dry; surgical sites inspect, mild evidence of drainage from distal aspect of proximal incision site, well coapted, ashleigh in place, no dressing strikethrough noted; no open lesions or wounds n oted; mild periwound erythema noted to b/l incision sites, no cellulitis or streaking appreciated, no clinical signs of infection Ortho: mild pain and tenderness on palpation to the right thigh at the operative site; can raise knee, move toes and ankle Neuro: gross and protective sensation intact - Neurological Exam Neurological Exam: Alert, Awake, Oriented x3 - Psychiatric Exam Psychiatric exam: Normal Affect, Normal Mood Assessment and Plan - Assessment and Plan (Free Text) Assessment: 62 yo male POD 2 right ORIF/IM Nailing femur fx Plan: Patient seen and evaluated Discussed in detail with Dr. Kat Charts, labs, and vitals reviewed - 100.7 temperature, WBC 11.4 Dressings left intact Chest x-ray 02/19 - normal findings UA - glucose, ketones, and blood seen F/u urine and blood cultures Continue incentive spirometry Continue pain management Medicine team recs for possible abx appreciated PT eval recommends acute rehab or [facility] Continue to monitor vitals and labs Will continue to follow while in house
--- NOTE | 2018-02-20 13:17 | CP.PCM.PN ---
<Alexey Gimenez - Last Filed: 02/20/18 13:50> Subjective - Date & Time of Evaluation Date of Evaluation: 02/20/18 Time of Evaluation: 07:00 - Subjective Subjective: Alexey Gimenez, PGY1 Medicine Progress Note for Dr. Kessler Patient was seen and examined at bedside this morning. He still has right lower extremity pain s/p procedure. However, he says that the pain medications are helping. Patient is comfortable and in no acute distress. Patient did have a Tmax of 101.4 overnight. HR is at 110. This morning his temp was 100.7. Patient explained that this is likely a post-op fever given that there is no source of infection at this present time. Patient denies cp, shortness of breath, nausea, vomiting, diarrhea, bowel/bladder changes. Discussed with patient on how to use the incentive spirometer properly. A full 12 point ROS was conducted and unremarkable except as stated above. Objective - Vital Signs/Intake and Output Vital Signs (last 24 hours): Temp Pulse Resp BP Pulse Ox 100.7 F H 110 H 20 125/80 95 02/20/18 06:00 02/20/18 06:00 02/20/18 06:00 02/20/18 06:00 02/20/18 06:00 Intake and Output: 02/20/18 02/20/18 06:59 18:59 Intake Total 360 Output Total 400 Balance -40 - Medications Medications: Current Medications Acetaminophen (Tylenol 325mg Tab) 650 mg PO Q6H PRN PRN Reason: Fever >100.4 F Last Admin: 02/20/18 05:55 Dose: 325 mg Docusate Sodium (Colace) 100 mg PO TID [facility] Last Admin: 02/20/18 10:15 Dose: 100 mg Enoxaparin Sodium (Lovenox) 40 mg SC DAILY [facility]; Protocol Last Admin: 02/20/18 10:15 Dose: 40 mg Hydromorphone HCl (Dilaudid 0.2 Mg/Ml Caser Up) 30 mls @ 0 mls/hr IV PRN PRN; 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 Last Admin: 02/18/18 22:18 Dose: 0.001 mls/hr Sodium Chloride (Sodium Chloride 0.45%) 1,000 mls @ 70 mls/hr IV .[id number] [facility] Last Admin: 02/20/18 05:47 Dose: 70 mls/hr Morphine Sulfate (Morphine) 4 mg IVP Q4H PRN PRN Reason: Pain, severe (8-10) Last Admin: 02/18/18 10:49 Dose: 4 mg Ondansetron HCl (Zofran Inj) 4 mg IVP Q4H PRN PRN Reason: Nausea/Vomiting Pantoprazole Sodium (Protonix Ec Tab) 40 mg PO ACB [facility] - Labs Labs: 02/20/18 06:00 02/20/18 06:00 PT 11.5 SECONDS (9.4-12.5) 02/17/18 10:15 INR 1.00 02/17/18 10:15 APTT 25.4 Seconds (25.1-36.5) 02/17/18 10:15 - Constitutional Appears: No Acute Distress - Head Exam Head Exam: ATRAUMATIC, NORMAL INSPECTION, NORMOCEPHALIC - Eye Exam Eye Exam: EOMI, Normal appearance, PERRL - ENT Exam ENT Exam: Mucous Membranes Moist, Normal Exam - Neck Exam Neck Exam: Full ROM, Normal Inspection. absent: Lymphadenopathy - Respiratory Exam Respiratory Exam: Clear to Ausculation Bilateral, NORMAL BREATHING PATTERN. absent: Chest Wall Tenderness, Rales, Rhonchi, Wheezes, Respiratory Distress - Cardiovascular Exam Cardiovascular Exam: REGULAR RHYTHM, +S1, +S2. absent: Murmur - GI/Abdominal Exam GI & Abdominal Exam: Soft, Normal Bowel Sounds. absent: Firm, Guarding, Rigid, Tenderness - Extremities Exam Extremities Exam: Normal Capillary Refill. absent: Calf Tenderness Additional comments: Right Lower Ext is s/p ORIF of the proximal femoral shaft. No hematoma or signs of infection noted. Improved ROM of lower extremities bilaterally. Distal pulses are normal. 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 Patient's XR of the R-fe mur showed a comminuted displaced fracture of the proximal shaft of the femur with separation of the lesser trochanter. Orthopedics was consulted. Patient is POD#2 for ORIF of right-subtrochanteric/femoral shaft fracture. Plan: Fall - s/p ORIF of the R-subtrochanteric/femoral shaft fracture (POD#2) - c/w pain control; dilaudid and morphine 4mg IVP q4 prn - Ortho was consulted (Dr. Kat), recommendations appreciated. Patient s/p ORIF on 02/18. Patient had x1 pRBC during procedure - H/H is downtrending - 8.9/26.4, consider dilutional component since patient is receiving IVF. No active bleeding. Continue to monitor H/H. - PT recommends acute rehab with [facility] as second opinion - Heart Healthy Diet - NS at 70 mls/hr - Xray of the right femur: comminuted displaced fracture of the proximal shaft of the femur with separation of the lesser trochanter - Patient also has laceration on the upper lip due to fall; no surgical intervention is required at this time - CT hip: acute common communited fracture of proximal right femur. Edematous changes primarily within the adductor musculature. Post-op fever with tachycardia - Tmax 101.4 overnight; 100.7 this morning; likely post-op fever, no antibiotics at this time - c/w Tylenol 650 mg PO q6 prn - c/w incentive spirometer - f/u Blood cx and urine cx - monitor for fevers - CXR (02/19): no active disease - UA is negative for UTI - HR was 108 this morning; could be patients baseline or associated with pain - EKG (02/19): sinus tachy with no acute changes; patient is asymptomatic HTN 2/2 pain - improved - BP today is 123/78 GI ppx: PTX DVT ppx: Lovenox, SCDs Dispo: patient is s/p ORIF of the Right subtrochanteric/femoral shaft fracture POD#2. PT recommends acute rehab vs [facility]. Monitor for fevers. Case was discussed and reviewed with Attending Physician, Dr. Kessler. <Nicole Kessler - Last Filed: 02/20/18 16:48> Objective - Vital Signs/Intake and Output Vital Signs (last 24 hours): Temp Pulse Resp BP Pulse Ox 103.2 F H 119 H 20 121/75 97 11/16/18 14:20 02/20/18 14:00 02/20/18 14:00 02/20/18 14:00 02/20/18 14:00 Intake and Output: 02/20/18 02/20/18 06:59 18:59 Intake Total 360 Output Total 400 Balance -40 - Medications Medications: Current Medications Acetaminophen (Tylenol 325mg Tab) 650 mg PO Q6H PRN PRN Reason: Fever >100.4 F Last Admin: 02/20/18 14:20 Dose: 650 mg Docusate Sodium (Colace) 100 mg PO TID [facility] Last Admin: 02/20/18 14:59 Dose: 100 mg Enoxaparin Sodium (Lovenox) 40 mg SC DAILY [facility]; Protocol Last Admin: 02/20/18 10:15 Dose: 40 mg Hydromorphone HCl (Dilaudid 0.2 Mg/Ml Caser Up) 30 mls @ 0 mls/hr IV PRN PRN; 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 Last Admin: 02/18/18 22:18 Dose: 0.001 mls/hr Sodium Chloride (Sodium Chloride 0.45%) 1,000 mls @ 70 mls/hr IV .[id number] [facility] Last Admin: 02/20/18 05:47 Dose: 70 mls/hr Ibuprofen (Motrin Tab) 600 mg PO Q6H PRN PRN Reason: Fever >100.4 F Morphine Sulfate (Morphine) 4 mg IVP Q4H PRN PRN Reason: Pain, severe (8-10) Last Admin: 02/18/18 10:49 Dose: 4 mg Ondansetron HCl (Zofran Inj) 4 mg IVP Q4H PRN PRN Reason: Nausea/Vomiting Pantoprazole Sodium (Protonix Ec Tab) 40 mg PO ACB [facility] - Labs Labs: 02/20/18 15:29 02/20/18 06:00 PT 11.5 SECONDS (9.4-12.5) 02/17/18 10:15 INR 1.00 02/17/18 10:15 APTT 25.4 Seconds (25.1-36.5) 02/17/18 10:15 Attending/Attestation - Attestation I have personally seen and examined this patient.: Yes I have fully participated in the care of the patient.: Yes I have reviewed all pertinent clinical information, including history, physical exam and plan: Yes Notes (Text): 02/20/18 16:38 62 year old male with no significant past medical history who presented with right leg pain s/p fall from a rig. He was found to have a comminuted displaced fracture of the proximal shaft of the femur with separation of the lesser trochanter. He was seen by ortho and is s/p ORIF POD #2. Post op patient noted to have fever. Ua/CXR/Bcx negative to date. Mild leukocytosis. Encouraged to use incentive spirometer at bedside. Consider ID evaluation, antibiotics and CT imaging if fever is persistent. Patient also has downtrending anemia, possible dilutional vs post procedure anemia. Will continue to monitor closely and transfuse as needed. PT evaluation was appreciated; recommended acute rehab or [facility]. Nicole Kessler MD Hospitalist.
[2018-02-20 15:37] LABS: MEAN CELL VOLUME 84.2 fl (80.0-105.0); MEAN CORPUSCULAR HEMOGLOBIN 28.2 pg (25.0-35.0); MEAN CORPUSCULAR HGB CONC 33.5 g/dl (31.0-37.0); RBC 2.84 10^6/uL (3.5-6.1); RED CELL DISTRIBUTION WIDTH 12.5 % (11.5-14.5); WHITE BLOOD COUNT 11.3 10^3/uL (4.5-11.0)
[2018-02-20] MEDS ORDERED: Piperacillin/Tazobact 3.375 gm 100 ML IVPB STA (16:53)
[2018-02-20] MEDS ORDERED: Vancomycin 1gm in NS 250ml 1 GM/250 ML BAG IVPB STA (16:55)
[2018-02-20] MEDS: Vancomycin 1gm in NS 250ml 1 GM/250 ML BAG IVPB SCH (22:13)
[2018-02-20] MEDS: Piperacillin/Tazobact 3.375 gm 100 ML IVPB SCH (22:14)
[2018-02-21] MEDS: Piperacillin/Tazobact 3.375 gm 100 ML IVPB SCH ×3 (05:15→23:58)
[2018-02-21] MEDS: Vancomycin 1gm in NS 250ml 1 GM/250 ML BAG IVPB SCH ×2 (05:15→17:00)
[2018-02-21 07:29] LABS: BASO # 0.03 K/mm3 (0.0-2.0); BASO % 0.3 % (0.0-3.0); EOS # 0.5 (0.0-0.7); EOS % 5.9 % (1.5-5.0); GRAN # 6.25 (1.4-6.5); GRAN % 68.4 % (50.0-68.0); HEMOGLOBIN 7.5 g/dL (14.0-18.0); LYMPH # 1.5 (1.2-3.4); LYMPH % 15.8 % (22.0-35.0); MEAN CELL VOLUME 83.9 fl (80.0-105.0); MEAN CORPUSCULAR HEMOGLOBIN 28.1 pg (25.0-35.0); MEAN CORPUSCULAR HGB CONC 33.5 g/dl (31.0-37.0); MEAN PLATELET VOLUME 9.7 fl (7.0-11.0); MONO # 0.9 (0.1-0.6); MONO % 9.6 % (1.0-6.0); RBC 2.67 10^6/uL (3.5-6.1); RED CELL DISTRIBUTION WIDTH 12.7 % (11.5-14.5); WHITE BLOOD COUNT 9.2 10^3/uL (4.5-11.0)
--- NOTE | 2018-02-21 07:33 | CP.PCM.PN ---
<Riki Raza - Last Filed: 02/21/18 15:47> Subjective - Date & Time of Evaluation Date of Evaluation: 02/21/18 Time of Evaluation: 07:33 - Subjective Subjective: PGY-1 Medicine Progress Note for Dr. Kessler's service Patient seen and examined at bedside this AM, POD#3 of R ORIF. No acute overnight events reported. Patient's pain adequately controlled. Endorses constipation, difficulty getting to bathroom. Discussed having bedside layton for ease. Spoke with patient about low Hb level today, will repeat at noon and transfuse if needed. Patient understood and amenable to plan. 12 pt ROS otherwise negative at this time. Objective - Vital Signs/Intake and Output Vital Signs (last 24 hours): Temp Pulse Resp BP Pulse Ox 99.1 F 95 H 18 105/69 98 02/20/18 22:00 02/20/18 22:00 02/20/18 22:00 02/20/18 22:00 02/20/18 22:00 Intake and Output: 02/21/18 02/21/18 06:59 18:59 Intake Total 240 Balance 240 - Medications Medications: Current Medications Acetaminophen (Tylenol 325mg Tab) 650 mg PO Q6H PRN PRN Reason: Fever >100.4 F Last Admin: 02/20/18 14:20 Dose: 650 mg Docusate Sodium (Colace) 100 mg PO TID [facility] Last Admin: 02/20/18 22:12 Dose: 100 mg Enoxaparin Sodium (Lovenox) 40 mg SC DAILY [facility]; Protocol Last Admin: 02/20/18 10:15 Dose: 40 mg Hydromorphone HCl (Dilaudid 0.2 Mg/Ml Tractor Trailer Operator) 30 mls @ 0 mls/hr IV PRN PRN; Protocol PRN Reason: SHIFT MGR PER MD ORDER Last Admin: 02/18/18 22:18 Dose: 0.001 mls/hr Sodium Chloride (Sodium Chloride 0.45%) 1,000 mls @ 70 mls/hr IV .[id number] [facility] Last Admin: 02/20/18 05:47 Dose: 70 mls/hr Vancomycin HCl (Vancomycin 1gm) 1 gm in 250 mls @ 167 mls/hr IVPB Q12H [facility]; Protocol Last Admin: 02/21/18 05:15 Dose: 167 mls/hr Piperacillin Sod/Tazobactam Sod (Zosyn 3.375 In Ns 100ml) 100 mls @ 25 mls/hr IVPB Q8 [facility]; Protocol Stop: 02/27/18 22:01 Last Admin: 02/21/18 05:15 Dose: 25 mls/hr Ibuprofen (Motrin Tab) 600 mg PO Q6H PRN PRN Reason: Fever >100.4 F Last Admin: 02/20/18 18:06 Dose: 600 mg Morphine Sulfate (Morphine) 4 mg IVP Q4H PRN PRN Reason: Pain, severe (8-10) Last Admin: 02/18/18 10:49 Dose: 4 mg Ondansetron HCl (Zofran Inj) 4 mg IVP Q4H PRN PRN Reason: Nausea/Vomiting Pantoprazole Sodium (Protonix Ec Tab) 40 mg PO ACB [facility] - Labs Labs: 02/21/18 06:00 02/20/18 06:00 PT 11.5 SECONDS (9.4-12.5) 02/17/18 10:15 INR 1.00 02/17/18 10:15 APTT 25.4 Seconds (25.1-36.5) 02/17/18 10:15 - Constitutional Appears: Non-toxic, No Acute Distress - Head Exam Head Exam: ATRAUMATIC, NORMAL INSPECTION, NORMOCEPHALIC - Eye Exam Eye Exam: EOMI, Normal appearance - ENT Exam ENT Exam: Mucous Membranes Moist, Normal Exam - Neck Exam Neck Exam: Full ROM, Normal Inspection - Respiratory Exam Respiratory Exam: Clear to Ausculation Bilateral, NORMAL BREATHING PATTERN. absent: Accessory Muscle Use, Rales, Rhonchi, Wheezes, Respiratory Distress, Stridor - Cardiovascular Exam Cardiovascular Exam: Tachycardia, +S1, +S2 - GI/Abdominal Exam GI & Abdominal Exam: Soft, Normal Bowel Sounds. absent: Distended, Firm, Guarding, Rigid, Tenderness, Organomegaly, Rebound - Extremities Exam Extremities Exam: Normal Capillary Refill. absent: Calf Tenderness, Joint Swelling Additional comments: Right Lower Ext is s/p ORIF of the proximal femoral shaft. No hematoma or signs of infection noted. Improved ROM of lower extremities bilaterally. Distal pulses are normal. - Back Exam Back Exam: NORMAL INSPECTION - Neurological Exam Neurological Exam: Alert, Awake, Oriented x3 - Psychiatric Exam Psychiatric exam: Normal Affect, Normal Mood - Skin Skin Exam: Dry, Intact, Normal Color, Warm Assessment and Plan - Assessment and Plan (Free Text) Assessment: 62 yo M with no pmhx who presented with right leg pain s/p fall from a rig. Found to have a comminuted displaced fracture of the proximal shaft of the femur with separation of the lesser trochanter. POD 3 s/p R ORIF procedure. Currently being monitored for post-op fever with systemic inflammatory response syndrome, source to be determined. Plan: POD 3 s/p R ORIF procedure -c/w incentive spirometer -Imaging - XR R femur: comminuted displaced fracture of the proximal shaft of the femur with separation of the lesser trochanter - CT hip: acute common communited fracture of proximal right femur. Edematous changes primarily within the adductor musculature. -Ortho (Dr. Kat) recs appreciated -POD 3 s/p R ORIF (02/18) -s/p 1 unit pRBC transfusion during procedure, 700 cc blood volume loss -Hb/Hct downtrendin.5/22.4 -repeat CBC @ 12 pm: 7.5 -transfuse 2 unit pRBC, per Dr. Kat -Medications -morphine 4mg IVP q4 prn -NS @ 70 cc/hr Post-op fever with systemic inflammatory response syndrome, source to be determined. - Tmax 103.2 (02/20) - currently afebrile 99.2, continue to monitor for fevers -CXR: no active disease -UA: negative -Bcx, Ucx negative x 24 hrs -Medications -Tylenol q6 prn Constipation -Miralax BID -bedside layton HTN 2/2 pain - improved - normotensive, continue to monitor PPx, Diet, Disposition -DVT: lovenox, scds -GI: protonix -Diet: HHD -Disposition: POD 3 s/p R ORIF, acute rehab vs [facility] per PT recs. Continue to monitor for fevers, f/u hb and transfuse prn Case discussed with Dr. Checo Raza DO, PGY-1 <Nicole Kessler - Last Filed: 02/21/18 15:57> Objective - Vital Signs/Intake and Output Vital Signs (last 24 hours): Temp Pulse Resp BP Pulse Ox 99.8 F H 106 H 20 116/69 100 02/21/18 14:38 02/21/18 14:38 02/21/18 14:38 02/21/18 14:38 02/21/18 14:38 Intake and Output: 02/21/18 02/21/18 06:59 18:59 Intake Total 240 Balance 240 - Medications Medications: Current Medications Acetaminophen (Tylenol 325mg Tab) 650 mg PO Q6H PRN PRN Reason: Fever >100.4 F Last Admin: 02/20/18 14:20 Dose: 650 mg Docusate Sodium (Colace) 100 mg PO TID [facility] Last Admin: 02/21/18 14:05 Dose: 100 mg Enoxaparin Sodium (Lovenox) 40 mg SC DAILY [facility]; Protocol Last Admin: 02/21/18 14:04 Dose: Not Given Sodium Chloride (Sodium Chloride 0.45%) 1,000 mls @ 70 mls/hr IV .[id number] [facility] Last Admin: 02/20/18 05:47 Dose: 70 mls/hr Vancomycin HCl (Vancomycin 1gm) 1 gm in 250 mls @ 167 mls/hr IVPB Q12H [facility]; Protocol Last Admin: 02/21/18 05:15 Dose: 167 mls/hr Piperacillin Sod/Tazobactam Sod (Zosyn 3.375 In Ns 100ml) 100 mls @ 25 mls/hr IVPB Q8 [facility]; Protocol Stop: 02/27/18 22:01 Last Admin: 02/21/18 14:05 Dose: 25 mls/hr Ibuprofen (Motrin Tab) 600 mg PO Q6H PRN PRN Reason: Fever >100.4 F Last Admin: 02/20/18 18:06 Dose: 600 mg Morphine Sulfate (Morphine) 4 mg IVP Q4H PRN PRN Reason: Pain, severe (8-10) Last Admin: 02/18/18 10:49 Dose: 4 mg Ondansetron HCl (Zofran Inj) 4 mg IVP Q4H PRN PRN Reason: Nausea/Vomiting Pantoprazole Sodium (Protonix Ec Tab) 40 mg PO ACB [facility] Last Admin: 02/21/18 08:40 Dose: 40 mg Polyethylene Glycol (Miralax) 17 gm PO BID [facility] - Labs Labs: 02/21/18 12:20 02/21/18 06:00 PT 11.5 SECONDS (9.4-12.5) 02/17/18 10:15 INR 1.00 02/17/18 10:15 APTT 25.4 Seconds (25.1-36.5) 02/17/18 10:15 Attending/Attestation - Attestation I have personally seen and examined this patient.: Yes I have fully participated in the care of the patient.: Yes I have reviewed all pertinent clinical information, including history, physical exam and plan: Yes Notes (Text): 02/21/18 15:55 62 year old male with no significant past medical history who presented with right leg pain s/p fall from a rig. He was found to have a comminuted displaced fracture of the proximal shaft of the femur with separation of the lesser trochanter. He was seen by ortho and is s/p ORIF POD #3. Post op patient noted to have fever. Ua/CXR/Bcx negative to date. Encouraged to use incentive spirometer at bedside. He was started on iv antibiotics while awaiting cultures. ID evaluation was appreciated; agreed with above. Fever trend is coming down. Patient also has downtrending anemia, possibly related to blood loss from surgery. Case discussed with ortho; will transfuse 2 units today and monitor closely. PT evaluation was appreciated; recommended acute rehab or [facility]. Nicole Kessler MD Hospitalist.
[2018-02-21 07:44] LABS: BLOOD UREA NITROGEN 11 mg/dL (7-21); CALCIUM 7.5 mg/dL (8.4-10.5); GFR NON-AFRICAN AMERICAN > 60
[2018-02-21] MEDS: Pantoprazole 40 mg EC Tab PO SCH (08:40)
--- NOTE | 2018-02-21 09:33 | CP.PCM.PN ---
Subjective - Date & Time of Evaluation Date of Evaluation: 02/21/18 Time of Evaluation: 09:29 - Subjective Subjective: Progress note for Dr. Kat 62 yo male seen and evaluated at bedside 3 days s/p right ORIF/IM Nailing femur fx. Seen resting comfortably in bed. States that he is in no pain today and denies N/V/F/C/SOB/CP. States that fever worsened overnight. Objective - Vital Signs/Intake and Output Vital Signs (last 24 hours): Temp Pulse Resp BP Pulse Ox 99.2 F 102 H 20 116/70 96 02/21/18 07:00 02/21/18 07:00 02/21/18 07:00 02/21/18 07:00 02/21/18 07:00 Intake and Output: 02/21/18 02/21/18 06:59 18:59 Intake Total 240 Balance 240 - Medications Medications: Current Medications Acetaminophen (Tylenol 325mg Tab) 650 mg PO Q6H PRN PRN Reason: Fever >100.4 F Last Admin: 02/20/18 14:20 Dose: 650 mg Docusate Sodium (Colace) 100 mg PO TID [facility] Last Admin: 02/21/18 08:40 Dose: 100 mg Enoxaparin Sodium (Lovenox) 40 mg SC DAILY [facility]; Protocol Last Admin: 02/20/18 10:15 Dose: 40 mg Hydromorphone HCl (Dilaudid 0.2 Mg/Ml Supply Officer) 30 mls @ 0 mls/hr IV PRN PRN; Prot ocol PRN Reason: SPINDLE TESTER PER MD ORDER Last Admin: 02/18/18 22:18 Dose: 0.001 mls/hr Sodium Chloride (Sodium Chloride 0.45%) 1,000 mls @ 70 mls/hr IV .[id number] [facility] Last Admin: 02/20/18 05:47 Dose: 70 mls/hr Vancomycin HCl (Vancomycin 1gm) 1 gm in 250 mls @ 167 mls/hr IVPB Q12H [facility]; Protocol Last Admin: 02/21/18 05:15 Dose: 167 mls/hr Piperacillin Sod/Tazobactam Sod (Zosyn 3.375 In Ns 100ml) 100 mls @ 25 mls/hr IVPB Q8 [facility]; Protocol Stop: 02/27/18 22:01 Last Admin: 02/21/18 05:15 Dose: 25 mls/hr Ibuprofen (Motrin Tab) 600 mg PO Q6H PRN PRN Reason: Fever >100.4 F Last Admin: 02/20/18 18:06 Dose: 600 mg Morphine Sulfate (Morphine) 4 mg IVP Q4H PRN PRN Reason: Pain, severe (8-10) Last Admin: 02/18/18 10:49 Dose: 4 mg Ondansetron HCl (Zofran Inj) 4 mg IVP Q4H PRN PRN Reason: Nausea/Vomiting Pantoprazole Sodium (Protonix Ec Tab) 40 mg PO ACB [facility] Last Admin: 02/21/18 08:40 Dose: 40 mg - Labs Labs: 02/21/18 06:00 02/21/18 06:00 PT 11.5 SECONDS (9.4-12.5) 02/17/18 10:15 INR 1.00 02/17/18 10:15 APTT 25.4 Seconds (25.1-36.5) 02/17/18 10:15 - Constitutional Appears: Well, Non-toxic, No Acute Distress - Head Exam Head Exam: ATRAUMATIC, NORMOCEPHALIC - Extremities Exam Additional comments: Vasc: DP and PT pulses palpable; cap refill <3 seconds to all digits; mild edema noted proximal to the right knee; temp gradient warm to cool from proximal to distal Derm: surgical dressings intact, clean, and dry; surgical sites inspect, mild evidence of drainage from distal aspect of proximal incision site, well coapted, ashleigh in place, no dressing strikethrough noted; no open lesions or wounds noted; mild periwound erythema noted to b/l incision sites, no cellulitis or streaking appreciated, no clinical signs of infection Ortho: mild pain and tenderness on palpation to the right thigh at the operative site; can raise knee, move toes and ankle Neuro: gross and protective sensation intact - Neurological Exam Neurological Exam: Alert, Awake, Oriented x3 - Psychiatric Exam Psychiatric exam: Normal Affect, Normal Mood Assessment and Plan - Assessment and Plan (Free Text) Assessment: 62 yo male POD 3 right ORIF/IM Nailing femur fx Plan: Patient seen and evaluated Discussed in detail with Dr. Kat Charts, labs, and vitals reviewed - 103.2 temperature overnight, but 99.2 at this time, WBC 9.2 Dressings left intact Chest x-ray 02/19 - normal findings UA - glucose, ketones, and blood seen Urine culture- negative for ABC and nitrates, trace glucose and small blood noted blood cultures- Pending Continue incentive spirometry Continue pain management Medicine team recs for possible abx appreciated PT eval recommends acute rehab or [facility] Continue to monitor vitals and labs Will continue to follow while in house
--- NOTE | 2018-02-21 11:19 | CP.PCM.CON ---
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 He fell on his behind on the right side. He was then found to have a comminuted fracture of the proximal shaft of the right femur and the patient Orthopedic surgery for this. On post-op day 1, the patient started having fevers, which persisted up to POD #2. He denies headache or dizziness, no chest pain, no SOB, no cough or rhinorrhea, no sore throat, no abdominal pain, no diarrhea, no dysuria, no chest palpitations. He still has some pain on the right thigh but states that he is starting to feel better. Infectious diseases consult is requested to further evaluate and manage. Review of Systems - Review of Systems All systems: reviewed and no additional remarkable complaints except (as per HPI) Past Patient History - Past Social History Smoking Status: Never Smoked - HEMATOLOGICAL/ONCOLOGICAL Hx Blood Transfusions: No Hx Blood Transfusion Reaction: No - MUSCULOSKELETAL/RHEUMATOLOGICAL Hx Falls: Yes - PSYCHIATRIC Hx Substance Use: No - SURGICAL HISTORY Hx Surgeries: No - ANESTHESIA Hx Anesthesia Reactions: No Hx Malignant Hyperthermia: No Meds Allergies/Adverse Reactions: Allergies Allergy/AdvReac Type Severity Reaction Status Date / Time No Known Allergies Allergy Verified 02/17/18 10:08 - Medications Medications: Current Medications Acetaminophen (Tylenol 325mg Tab) 650 mg PO Q6H PRN PRN Reason: Fever >100.4 F Last Admin: 02/20/18 14:20 Dose: 650 mg Docusate Sodium (Colace) 100 mg PO TID [facility] Last Admin: 02/20/18 14:59 Dose: 100 mg Enoxaparin Sodium (Lovenox) 40 mg SC DAILY [facility]; Protocol Last Admin: 02/20/18 10:15 Dose: 40 mg Hydromorphone HCl (Dilaudid 0.2 Mg/Ml General Production Manager) 30 mls @ 0 mls/hr IV PRN PRN; Protocol 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 Last Admin: 02/18/18 22:18 Dose: 0.001 mls/hr Sodium Chloride (Sodium Chloride 0.45%) 1,000 mls @ 70 mls/hr IV .[id number] [facility] Last Admin: 02/20/18 05:47 Dose: 70 mls/hr Vancomycin HCl (Vancomycin 1gm) 1 gm in 250 mls @ 167 mls/hr IVPB [facility]; Protocol Stop: 02/20/18 18:24 Ibuprofen (Motrin Tab) 600 mg PO Q6H PRN PRN Reason: Fever >100.4 F Morphine Sulfate (Morphine) 4 mg IVP Q4H PRN PRN Reason: Pain, severe (8-10) Last Admin: 02/18/18 10:49 Dose: 4 mg Ondansetron HCl (Zofran Inj) 4 mg IVP Q4H PRN PRN Reason: Nausea/Vomiting Pantoprazole Sodium (Protonix Ec Tab) 40 mg PO ACB [facility] Physical Exam - Constitutional Appears: Non-toxic, No Acute Distress, Chronically Ill - Head Exam Head Exam: NORMAL INSPECTION - ENT Exam ENT Exam: Mucous Membranes Moist - Neck Exam Neck exam: Negative for: Meningismus - Respiratory Exam Respiratory Exam: Decreased Breath Sounds. absent: Rales - Cardiovascular Exam Cardiovascular Exam: +S1, +S2 - GI/Abdominal Exam GI & Abdominal Exam: Soft. absent: Tenderness - Extremities Exam Additional comments: right thigh with dressings in place Results - Vital Signs Recent Vital Signs: Last Vital Signs Temp 103.2 F H 02/20/18 14:20 Pulse 119 H 02/20/18 14:00 Resp 20 02/20/18 14:00 BP 121/75 02/20/18 14:00 Pulse Ox 97 02/20/18 14:00 - Labs Result Diagrams: 02/21/18 06:00 02/21/18 06:00 Labs: Laboratory Results - last 24 hr 02/19/18 02/20/18 02/20/18 21:43 06:00 06:00 WBC 11.4 H RBC 3.13 L Hgb 8.9 L Hct 26.4 L MCV 84.3 MCH 28.4 MCHC 33.7 RDW 12.6 Plt Count 135 MPV 10.0 Gran % 70.9 H Lymph % (Auto) 14.5 L Hodgeman % (Auto) 12.4 H Eos % (Auto) 2.0 Baso % (Auto) 0.2 Gran # 8.08 H Lymph # (Auto) 1.7 Hodgeman # (Auto) 1.4 H Eos # (Auto) 0.2 Baso # (Auto) 0.02 Sodium 132 Potassium 4.1 Chloride 102 Carbon Dioxide 25 Anion Gap 10 BUN 9 Creatinine 0.8 Est GFR ( Amer) > 60 Est GFR (Non-Af Amer) > 60 POC Glucose (mg/dL) Random Glucose 168 H Calcium 7.7 L Total Bilirubin 0.9 AST 83 H D ALT 30 Alkaline Phosphatase 48 Total Protein 5.4 L Albumin 2.8 L Globulin 2.6 Albumin/Globulin Ratio 1.0 L Urine Color Yellow Urine Appearance Clear Urine pH 6.0 Ur Specific [place] 1.020 Urine Protein Negative Urine Glucose (UA) >=1000 Urine Ketones Negative Urine Blood Small H Urine Nitrate Negative Urine Bilirubin Negative Urine Urobilinogen 0.2 Ur Leukocyte Esterase Negative Urine RBC 0 - 2 Urine WBC 0 - 2 Ur Epithelial Cells 0 - 2 Urine Bacteria None 02/20/18 02/20/18 02/20/18 08:06 14:27 15:29 WBC 11.3 H RBC 2.84 L Hgb 8.0 L Hct 23.9 L MCV 84.2 MCH 28.2 MCHC 33.5 RDW 12.5 Plt Count 135 MPV 10.0 Gran % Lymph % (Auto) Hod[place]eman % (Auto) Eos % (Auto) Baso % (Auto) Gran # Lymph # (Auto) Hod[place]eman # (Auto) Eos # (Auto) Baso # (Auto) Sodium Potassium Chloride Carbon Dioxide Anion Gap BUN Creatinine Est GFR ( Amer) Est GFR (Non-Af Amer) POC Glucose (mg/dL) 212 H Random Glucose Calcium Total Bilirubin AST ALT Alkaline Phosphatase Total Protein Albumin Globulin Albumin/Globulin Ratio Urine Color Yellow Urine Appearance Sl cloudy Urine pH 6.5 Ur Specific [place] 1.020 Urine Protein Trace H Urine Glucose (UA) 250 H Urine Ketones 15 H Urine Blood Small H Urine Nitrate Negative Urine Bilirubin Negative Urine Urobilinogen 1.0 H Ur Leukocyte Esterase Negative Urine RBC Negative Urine WBC 1 - 3 Ur Epithelial Cells 0 - 2 Urine Bacteria Assessment & Plan - Assessment and Plan (Free Text) Plan: Assessment Post-op fever with systemic inflammatory response syndrome, source to be determined right proximal femoral comminuted fracture S/P ORIF POD #2 Plan started Vancomycin and Zosyn pending blood, urine cx, PCT; reviewed CXR which does not show infiltrates will also get rapid Influenza test will monitor clinically
[2018-02-21 12:43] LABS: BASO # 0.01 K/mm3 (0.0-2.0); BASO % 0.1 % (0.0-3.0); EOS # 0.5 (0.0-0.7); EOS % 5.8 % (1.5-5.0); GRAN # 5.62 (1.4-6.5); GRAN % 66.1 % (50.0-68.0); HEMOGLOBIN 7.5 g/dL (14.0-18.0); LYMPH # 1.7 (1.2-3.4); LYMPH % 19.6 % (22.0-35.0); MEAN CELL VOLUME 84.8 fl (80.0-105.0); MEAN CORPUSCULAR HEMOGLOBIN 28.5 pg (25.0-35.0); MEAN CORPUSCULAR HGB CONC 33.6 g/dl (31.0-37.0); MEAN PLATELET VOLUME 9.7 fl (7.0-11.0); MONO # 0.7 (0.1-0.6); MONO % 8.4 % (1.0-6.0); RBC 2.63 10^6/uL (3.5-6.1); RED CELL DISTRIBUTION WIDTH 12.6 % (11.5-14.5); WHITE BLOOD COUNT 8.5 10^3/uL (4.5-11.0)
[2018-02-21] MEDS: Enoxaparin 40 mg Syringe SC SCH (14:04)
[2018-02-21] MEDS: POLYETHYLENE GLYCOL 3350 17 GM/Dose PACKET PO SCH (17:02)
[2018-02-21] MEDS: Morphine 4 mg/ml ISec IVP PRN (21:19)
--- NOTE | 2018-02-21 22:12 | PN ---
DATE: 02/21/2018 SUBJECTIVE: The patient is postoperative day #3 status post open reduction intramedullary nail fixation of right femur and right hip left subtrochanteric fracture. The patient is comfortable. Exam on bedside not in acute distress. Denies any significant amount of pain. PHYSICAL EXAMINATION VITAL SIGNS: Temperature of 100.9, slight tachycardia, and blood pressure is stable. LABORATORY DATA: The patient's hemoglobin is 7.5 and hematocrit is 22.3. The incision is clean, dry, and intact without any drainage. Neurovascular intact distally. ASSESSMENT AND PLAN: A 62-year-old male postoperative day #3 status post open reduction of right hip subtrochanteric fracture and intramedullary nail fixation. The patient will be transfused 2 units of blood. We will monitor his blood cultures, which are no growth to date. We will also monitor his hematocrit, hemoglobin and vital signs. The patient will be weightbearing as tolerated. Continue DVT prophylaxis and antibiotics. Segundo Kat MD
[2018-02-22] MEDS: Piperacillin/Tazobact 3.375 gm 100 ML IVPB SCH ×3 (05:36→21:31)
[2018-02-22 06:46] LABS: BASO # 0.03 K/mm3 (0.0-2.0); BASO % 0.4 % (0.0-3.0); EOS # 0.7 (0.0-0.7); GRAN # 5.07 (1.4-6.5); GRAN % 61.1 % (50.0-68.0); HEMOGLOBIN 9.2 g/dL (14.0-18.0); LYMPH # 1.7 (1.2-3.4); MEAN CORPUSCULAR HEMOGLOBIN 28.4 pg (25.0-35.0); MEAN CORPUSCULAR HGB CONC 33.8 g/dl (31.0-37.0); MONO # 0.9 (0.1-0.6); MONO % 10.5 % (1.0-6.0); RBC 3.24 10^6/uL (3.5-6.1); RED CELL DISTRIBUTION WIDTH 13.4 % (11.5-14.5); WHITE BLOOD COUNT 8.3 10^3/uL (4.5-11.0)
[2018-02-22 06:55] LABS: BLOOD UREA NITROGEN 11 mg/dL (7-21); CALCIUM 7.9 mg/dL (8.4-10.5); GFR NON-AFRICAN AMERICAN > 60
--- NOTE | 2018-02-22 07:45 | CP.PCM.PN ---
<Riki Raza - Last Filed: 02/22/18 19:11> Subjective - Date & Time of Evaluation Date of Evaluation: 02/22/18 Time of Evaluation: 07:45 - Subjective Subjective: PGY-1 Medicine Progress Note for Dr. Guillen's service Patient seen and examined at bedside this AM, POD#4 of R ORIF. No acute overnight events reported. Patient's pain adequately controlled, endorses BM. 12 pt ROS otherwise negative at this time. Objective - Vital Signs/Intake and Output Vital Signs (last 24 hours): Temp Pulse Resp BP Pulse Ox 99.4 F 95 H 20 142/87 98 02/22/18 04:43 02/22/18 04:43 02/22/18 04:43 02/22/18 04:43 02/21/18 22:14 Intake and Output: 02/22/18 02/22/18 06:59 18:59 Intake Total 2140 Output Total 950 Balance 1190 - Medications Medications: Current Medications Acetaminophen (Tylenol 325mg Tab) 650 mg PO Q6H PRN PRN Reason: Fever >100.4 F Last Admin: 02/21/18 16:59 Dose: 650 mg Docusate Sodium (Colace) 100 mg PO TID [facility] Last Admin: 02/21/18 17:02 Dose: 100 mg Enoxaparin Sodium (Lovenox) 40 mg SC DAILY [facility]; Protocol Last Admin: 02/21/18 14:04 Dose: Not Given Sodium Chloride (Sodium Chloride 0.45%) 1,000 mls @ 70 mls/hr IV .[id number] [facility] Last Admin: 02/20/18 05:47 Dose: 70 mls/hr Vancomycin HCl (Vancomycin 1gm) 1 gm in 250 mls @ 167 mls/hr IVPB Q12H [facility]; Protocol Last Admin: 02/21/18 17:00 Dose: 167 mls/hr Piperacillin Sod/Tazobactam Sod (Zosyn 3.375 In Ns 100ml) 100 mls @ 25 mls/hr IVPB Q8 [facility]; Protocol Stop: 02/27/18 22:01 Last Admin: 02/22/18 05:36 Dose: 25 mls/hr Ibuprofen (Motrin Tab) 600 mg PO Q6H PRN PRN Reason: Fever >100.4 F Last Admin: 02/20/18 18:06 Dose: 600 mg Morphine Sulfate (Morphine) 4 mg IVP Q4H PRN PRN Reason: Pain, severe (8-10) Last Admin: 02/21/18 21:19 Dose: 4 mg Ondansetron HCl (Zofran Inj) 4 mg IVP Q4H PRN PRN Reason: Nausea/Vomiting Pantoprazole Sodium (Protonix Ec Tab) 40 mg PO ACB [facility] Last Admin: 02/21/18 08:40 Dose: 40 mg Polyethylene Glycol (Miralax) 17 gm PO BID [facility] Last Admin: 02/21/18 17:02 Dose: 17 gm - Labs Labs: 02/22/18 06:30 02/22/18 06:30 PT 11.5 SECONDS (9.4-12.5) 02/17/18 10:15 INR 1.00 02/17/18 10:15 APTT 25.4 Seconds (25.1-36.5) 02/17/18 10:15 - Constitutional Appears: Non-toxic, No Acute Distress - Head Exam Head Exam: ATRAUMATIC, NORMAL INSPECTION, NORMOCEPHALIC - Eye Exam Eye Exam: EOMI, Normal appearance Pupil Exam: NORMAL ACCOMODATION - ENT Exam ENT Exam: Mucous Membranes Moist, Normal Exam - Neck Exam Neck Exam: Full ROM, Normal Inspection - Respiratory Exam Respiratory Exam: Clear to Ausculation Bilateral, NORMAL BREATHING PATTERN. a bsent: Accessory Muscle Use, Rales, Rhonchi, Wheezes, Respiratory Distress, Stridor - Cardiovascular Exam Cardiovascular Exam: Tachycardia, +S1, +S2 - GI/Abdominal Exam GI & Abdominal Exam: Soft, Normal Bowel Sounds. absent: Distended, Firm, Guarding, Rigid, Tenderness, Organomegaly, Rebound - Extremities Exam Extremities Exam: Normal Capillary Refill. absent: Calf Tenderness, Joint Swelling Additional comments: Right Lower Ext is s/p ORIF of the proximal femoral shaft. No signs of hematoma noted. Improved ROM of lower extremities bilaterally. Distal pulses are normal. - Back Exam Back Exam: NORMAL INSPECTION - Neurological Exam Neurological Exam: Alert, Awake, Oriented x3 - Psychiatric Exam Psychiatric exam: Normal Affect, Normal Mood - Skin Skin Exam: Dry, Intact, Normal Color, Warm Assessment and Plan - Assessment and Plan (Free Text) Assessment: 62 yo M with no pmhx who presented with right leg pain s/p fall from a rig. Found to have a comminuted displaced fracture of the proximal shaft of the femur with separation of the lesser trochanter. POD 4 s/p R ORIF procedure. Currently being monitored for post-op fever with systemic inflammatory response syndrome, source to be determined. Plan: POD# 4 s/p R ORIF procedure -c/w incentive spirometer -Imaging - XR R femur: comminuted displaced fracture of the proximal shaft of the femur with separation of the lesser trochanter - CT hip: acute common communited fracture of proximal right femur. Edematous changes primarily within the adductor musculature. -Ortho (Dr. Kat) recs appreciated -POD #4 s/p R ORIF (02/18) -received 2 unit pRBC transfusion during procedure, 700 cc blood volume loss -s/p 2 unit pRBC tranfusion (02/21), Hb 9.2--continue to monitor -Hb/Hct: 9.2/27.2 (02/22) -s/p 2 unit pRBC transfusion (02/21), as per Dr. Kat -Medications -morphine 4mg IVP q4 prn -NS @ 70 cc/hr Post-op fever with systemic inflammatory response syndrome, source to be determined. - Tmax 103.2 (02/20) - currently afebrile, continue to monitor for fevers -CXR: no active disease -UA: negative -Bcx, Ucx negative -Medications -Tylenol q6 prn DM -A1C: 7.2 -ISS medium -accuchecks, hypoglycemic protocol Constipation -Miralax BID -bedside layton HTN 2/2 pain - improved - normotensive, continue to monitor PPx, Diet, Disposition -DVT: lovenox, scds -GI: protonix -Diet: HHD -Disposition: POD #4 s/p R ORIF, awaiting insurance for acute rehab placement Case discussed with Dr. Wilmer Raza DO, PGY-1 <Sarah Guillen R - Last Filed: 02/23/18 14:45> Objective - Vital Signs/Intake and Output Vital Signs (last 24 hours): Temp Pulse Resp BP Pulse Ox 99.4 F 90 20 128/78 100 02/23/18 06:00 02/23/18 06:00 02/23/18 06:00 02/23/18 06:00 02/23/18 06:00 Intake and Output: 02/23/18 02/23/18 06:59 18:59 Intake Total 480 Output Total 3 Balance 477 - Medications Medications: Current Medications Acetaminophen (Tylenol 325mg Tab) 650 mg PO Q6H PRN PRN Reason: Fever >100.4 F Last Admin: 02/23/18 09:36 Dose: 650 mg Dextrose (Dextrose 50% Inj) 0 ml IV STAT PRN; Protocol PRN Reason: Hypoglycemia Protocol Docusate Sodium (Colace) 100 mg PO TID [facility] Last Admin: 02/23/18 09:36 Dose: 100 mg Enoxaparin Sodium (Lovenox) 40 mg SC DAILY [facility]; Protocol Last Admin: 02/23/18 09:35 Dose: 40 mg Dextrose (Dextrose 5% In Water 1000 Ml) 1,000 mls @ 0 mls/hr IV .Q0M PRN; Protocol PRN Reason: Hypoglycemia Protocol Ibuprofen (Motrin Tab) 600 mg PO Q6H PRN PRN Reason: Fever >100.4 F Last Admin: 02/23/18 10:32 Dose: 600 mg Insulin Human Lispro (Humalog Med) 0 units SC ACHS [facility]; Protocol Last Admin: 02/23/18 09:35 Dose: 1 unit Morphine Sulfate (Morphine) 4 mg IVP Q4H PRN PRN Reason: Pain, severe (8-10) Last Admin: 02/23/18 10:32 Dose: 4 mg Ondansetron HCl (Zofran Inj) 4 mg IVP Q4H PRN PRN Reason: Nausea/Vomiting Oxycodone HCl (Oxycontin Extended Release Tab) 20 mg PO Q12 [facility] Pantoprazole Sodium (Protonix Ec Tab) 40 mg PO ACB [facility] Last Admin: 02/23/18 09:36 Dose: 40 mg Polyethylene Glycol (Miralax) 17 gm PO BID [facility] Last Admin: 02/23/18 09:36 Dose: 17 gm - Labs Labs: 02/23/18 06:15 02/23/18 06:15 PT 11.5 SECONDS (9.4-12.5) 02/17/18 10:15 INR 1.00 02/17/18 10:15 APTT 25.4 Seconds (25.1-36.5) 02/17/18 10:15 Attending/Attestation - Attestation I have personally seen and examined this patient.: Yes I have fully participated in the care of the patient.: Yes I have reviewed all pertinent clinical information, including history, physical exam and plan: Yes Notes (Text): Patient seen and examined by me with resident at 9:45AM on 02/22/18. Case including HPI, physical exam, and assessment and plan discussed with resident. Agree with above with following additions/corrections. Patient is a 62-year-old male with no significant past medical history of present emergency room with right lower extremity pain status post fall. Patient states he is feeling okay. States he is having some pain at incision site in leg but is improved with pain medications. Patient states he is also having bowel movements but they're very "small." No chest pain or palpitations. No nausea, vomiting, or abdominal pain. No headaches or dizziness. No fevers or chills. No dysuria. Physical exam: General: Awake and alert lying in bed in no acute distress. HEENT: Normocephalic, atraumatic. Extraocular muscles intact, pupils equal and reactive, no scleral icterus. Oropharynx is pink and moist. Neck is supple Cardiovascular: Regular rhythm. Normal S1 and S2. No murmurs, rubs, or gallops appreciated Pulmonary: Normal respiratory effort. No rhonchi, rales, or wheezing appreciated. Gastrointestinal: Soft, nondistended. Nontender. Positive bowel sounds all 4 quadrants. No guarding. Musculoskeletal: Moves all extremities. No calf tenderness. Right leg dressing clean, dry, and intact. Positive mild erythema noted below right hip on lateral thigh. Central nervous system: AAOx3 Dermatologic: Skin warm and dry. Assessment and plan: Patient is a 62-year-old male with no significant past medical history of present emergency room with right lower extremity pain status post fall. 1. Acute comminuted fracture proximal right femur status post ORIF/IM nailing right femur 02/18/2018. Orthopedics following, recommendations appreciated. CT right lower extremity 02/17/18 per radiologist showed acute common, me needed fracture proximal right femur, edematous changes primarily within abductor musculature. Continue with pain management. Continue physical therapy. Physical therapist recommending acute rehabilitation 2. Postop fever. SIRS. Procalcitonin elevated at 0.52. Last fever at 6:30 yesterday evening. Urine and blood cultures with no growth. Chest x-ray per radiologist shows no active disease. ID following, recommendations appreciated. Patient is on Zosyn and Vanco. Continue to monitor for fevers. 3. New onset type [address] diabetes[address]C [address] on insulin sliding scale. Monitor accuchecks. Diet and exercise. Patient should be started on oral diabetic medication prior to discharge. 4. Anemia. Likely secondary to acute blood loss from surgery. Patient is status post 1 units packed red blood cells 02/18/2018. He is status post 1 unit packed red blood cell 02/21/2018 and 1 unit 02/22/2018. H&H improved. Continue to monitor CBC. 5. Constipation. Continue Colace and MiraLAX. 6. GI/DVT prophylaxis. Protonix/Lovenox 7. Patient is a full code Case was discussed in detail with patient regarding current diagnosis and treatment plan. All questions answered.
[2018-02-22] MEDS: Morphine 4 mg/ml ISec IVP PRN ×3 (08:29→22:51)
[2018-02-22] MEDS: Pantoprazole 40 mg EC Tab PO SCH (08:29)
[2018-02-22] MEDS: Vancomycin 1gm in NS 250ml 1 GM/250 ML BAG IVPB SCH ×2 (08:38→17:17)
--- NOTE | 2018-02-22 10:20 | CP.PCM.PN ---
Subjective - Date & Time of Evaluation Date of Evaluation: 02/22/18 Time of Evaluation: 10:19 - Subjective Subjective: Progress note for Dr. Kat 62 yo male seen and evaluated at bedside 4 days s/p right ORIF/IM Nailing femur fx. Seen resting comfortably in bed. States that he is in no pain today and denies N/V/F/C/SOB/CP. States that fever worsened overnight. Objective - Vital Signs/Intake and Output Vital Signs (last 24 hours): Temp Pulse Resp BP Pulse Ox 99.4 F 95 H 20 142/87 99 02/22/18 06:00 02/22/18 06:00 02/22/18 06:00 02/22/18 06:00 02/22/18 06:00 Intake and Output: 02/22/18 02/22/18 06:59 18:59 Intake Total 2140 Output Total 950 Balance 1190 - Medications Medications: Current Medications Acetaminophen (Tylenol 325mg Tab) 650 mg PO Q6H PRN PRN Reason: Fever >100.4 F Last Admin: 02/21/18 16:59 Dose: 650 mg Docusate Sodium (Colace) 100 mg PO TID [facility] Last Admin: 02/21/18 17:02 Dose: 100 mg Enoxaparin Sodium (Lovenox) 40 mg SC DAILY [facility]; Protocol Last Admin: 02/21/18 14:04 Dose: Not Given Sodium Chloride (Sodium Chloride 0.45%) 1,000 mls @ 70 mls/hr IV .[id number] [facility] Last Admin: 02/20/18 05:47 Dose: 70 mls/hr Vancomycin HCl (Vancomycin 1gm) 1 gm in 250 mls @ 167 mls/hr IVPB Q12H [facility]; Protocol Last Admin: 02/22/18 08:38 Dose: 167 mls/hr Piperacillin Sod/Tazobactam Sod (Zosyn 3.375 In Ns 100ml) 100 mls @ 25 mls/hr IVPB Q8 [facility]; Protocol Stop: 02/27/18 22:01 Last Admin: 02/22/18 05:36 Dose: 25 mls/hr Ibuprofen (Motrin Tab) 600 mg PO Q6H PRN PRN Reason: Fever >100.4 F Last Admin: 02/20/18 18:06 Dose: 600 mg Morphine Sulfate (Morphine) 4 mg IVP Q4H PRN PRN Reason: Pain, severe (8-10) Last Admin: 02/22/18 08:29 Dose: 4 mg Ondansetron HCl (Zofran Inj) 4 mg IVP Q4H PRN PRN Reason: Nausea/Vomiting Pantoprazole Sodium (Protonix Ec Tab) 40 mg PO ACB [facility] Last Admin: 02/22/18 08:29 Dose: 40 mg Polyethylene Glycol (Miralax) 17 gm PO BID [facility] Last Admin: 02/21/18 17:02 Dose: 17 gm - Labs Labs: 02/22/18 06:30 02/22/18 06:30 PT 11.5 SECONDS (9.4-12.5) 02/17/18 10:15 INR 1.00 02/17/18 10:15 APTT 25.4 Seconds (25.1-36.5) 02/17/18 10:15 - Constitutional Appears: Well, Non-toxic, No Acute Distress - Head Exam Head Exam: ATRAUMATIC, NORMOCEPHALIC - Extremities Exam Additional comments: Vasc: DP and PT pulses palpable; cap refill <3 seconds to all digits; mild edema noted proximal to the right knee; temp gradient warm to cool from proximal to distal Derm: surgical dressings intact, clean, and dry; surgical sites inspect, mild evidence of drainage from distal aspect of proximal incision site, well coapted, ashleigh in place, no dressing strikethrough noted; no open lesions or wounds noted; mild periwound erythema noted to b/l incision sites, no cellulitis or streaking appreciated, no clinical signs of infection Ortho: mild pain and tenderness on palpation to the right thigh at the operative site; can raise knee, move toes and ankle Neuro: gross and protective sensation intact - Neurological Exam Neurological Exam: Alert, Awake, Oriented x3 - Psychiatric Exam Psychiatric exam: Normal Affect, Normal Mood Assessment and Plan - Assessment and Plan (Free Text) Assessment: 62 yo male POD 4 right ORIF/IM Nailing femur fx Plan: Patient seen and evaluated Discussed in detail with Dr. Kat Charts, labs, and vitals reviewed - afebrile and absent leukocytosis at this time, Dressings left intact Chest x-ray 02/19 - normal findings UA - glucose, ketones, and blood seen Urine culture- negative for ABC and nitrates, trace glucose and small blood noted blood cultures- Pending Continue incentive spirometry Continue pain management Medicine team recs for possible abx appreciated PT eval recommends acute rehab or [facility] Continue to monitor vitals and labs Will continue to follow while in house
[2018-02-22] MEDS: POLYETHYLENE GLYCOL 3350 17 GM/Dose PACKET PO SCH ×2 (10:50→17:07)
[2018-02-22] MEDS: Enoxaparin 40 mg Syringe SC SCH (10:53)
[2018-02-22] MEDS: Sodium Chloride 0.45% 1,000 ML IV SCH (10:57)
--- NOTE | 2018-02-22 11:32 | CP.PCM.PN ---
Subjective - Date & Time of Evaluation Date of Evaluation: 02/22/18 Time of Evaluation: 08:45 - Subjective Subjective: Still had fevers last night, but no chills, less pain in the right leg, no cough, no sore throat, no abdominal pain, no diarrhea. Objective - Vital Signs/Intake and Output Vital Signs (last 24 hours): Temp Pulse Resp BP Pulse Ox 99.2 F 102 H 20 116/70 96 02/21/18 07:00 02/21/18 07:00 02/21/18 07:00 02/21/18 07:00 02/21/18 07:00 Intake and Output: 02/21/18 02/21/18 06:59 18:59 Intake Total 240 Balance 240 - Medications Medications: Current Medications Acetaminophen (Tylenol 325mg Tab) 650 mg PO Q6H PRN PRN Reason: Fever >100.4 F Last Admin: 02/20/18 14:20 Dose: 650 mg Docusate Sodium (Colace) 100 mg PO TID [facility] Last Admin: 02/21/18 08:40 Dose: 100 mg Enoxaparin Sodium (Lovenox) 40 mg SC DAILY [facility]; Protocol Last Admin: 02/20/18 10:15 Dose: 40 mg Hydromorphone HCl (Dilaudid 0.2 Mg/Ml Top Polisher) 30 mls @ 0 mls/hr IV PRN PRN; 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 Last Admin: 02/18/18 22:18 Dose: 0.001 mls/hr Sodium Chloride (Sodium Chloride 0.45%) 1,000 mls @ 70 mls/hr IV .[id number] [facility] Last Admin: 02/20/18 05:47 Dose: 70 mls/hr Vancomycin HCl (Vancomycin 1gm) 1 gm in 250 mls @ 167 mls/hr IVPB Q12H [facility]; Protocol Last Admin: 02/21/18 05:15 Dose: 167 mls/hr Piperacillin Sod/Tazobactam Sod (Zosyn 3.375 In Ns 100ml) 100 mls @ 25 mls/hr IVPB Q8 [facility]; Protocol Stop: 02/27/18 22:01 Last Admin: 02/21/18 05:15 Dose: 25 mls/hr Ibuprofen (Motrin Tab) 600 mg PO Q6H PRN PRN Reason: Fever >100.4 F Last Admin: 02/20/18 18:06 Dose: 600 mg Morphine Sulfate (Morphine) 4 mg IVP Q4H PRN PRN Reason: Pain, severe (8-10) Last Admin: 02/18/18 10:49 Dose: 4 mg Ondansetron HCl (Zofran Inj) 4 mg IVP Q4H PRN PRN Reason: Nausea/Vomiting Pantoprazole Sodium (Protonix Ec Tab) 40 mg PO ACB [facility] Last Admin: 02/21/18 08:40 Dose: 40 mg Polyethylene Glycol (Miralax) 17 gm PO BID [facility] - Labs Labs: 02/21/18 06:00 02/21/18 06:00 PT 11.5 SECONDS (9.4-12.5) 02/17/18 10:15 INR 1.00 02/17/18 10:15 APTT 25.4 Seconds (25.1-36.5) 02/17/18 10:15 - Constitutional Appears: Chronically Ill - Head Exam Head Exam: NORMAL INSPECTION - Neck Exam Neck Exam: absent: Meningismus - Respiratory Exam Respiratory Exam: Decreased Breath Sounds - Cardiovascular Exam Cardiovascular Exam: +S1, +S2 - GI/Abdominal Exam GI & Abdominal Exam: Soft. absent: Tenderness - Extremities Exam Additional comments: right leg with dressings in place Assessment and Plan - Assessment and Plan (Free Text) Plan: Assessment Post-op fever with systemic inflammatory response syndrome, source to be determined right proximal femoral comminuted fracture S/P ORIF POD #3 Plan continue Vancomycin and Zosyn day 2; blood, urine cx have been negative, PCT is equivocal; reviewed CXR which does not show infiltrates rapid Influenza test is negative if patient continues to have fever, may need xray of right thigh, CT C/A/P will continue to monitor clinically
[2018-02-22] MEDS ORDERED: Dextrose 50% SYRINGE Inj (50 ml) IV PRN (14:33)
[2018-02-22] MEDS: Insulin Lispro (humaLOG) MEDIUM Coverage SC SCH (16:22)
[2018-02-23] MEDS: Insulin Lispro (humaLOG) MEDIUM Coverage SC SCH ×5 (01:31→22:34)
[2018-02-23] MEDS: Morphine 4 mg/ml ISec IVP PRN ×2 (03:46→10:32)
[2018-02-23] MEDS: Vancomycin 1gm in NS 250ml 1 GM/250 ML BAG IVPB SCH (05:15)
[2018-02-23] MEDS: Piperacillin/Tazobact 3.375 gm 100 ML IVPB SCH (06:19)
[2018-02-23 07:00] LABS: BASO # 0.02 K/mm3 (0.0-2.0); BASO % 0.2 % (0.0-3.0); EOS # 0.7 (0.0-0.7); EOS % 8.4 % (1.5-5.0); GRAN # 5.2 (1.4-6.5); GRAN % 59.2 % (50.0-68.0); HEMOGLOBIN 9.5 g/dL (14.0-18.0); LYMPH # 1.9 (1.2-3.4); LYMPH % 21.3 % (22.0-35.0); MEAN CELL VOLUME 84.1 fl (80.0-105.0); MEAN CORPUSCULAR HEMOGLOBIN 27.5 pg (25.0-35.0); MEAN CORPUSCULAR HGB CONC 32.8 g/dl (31.0-37.0); MEAN PLATELET VOLUME 9.4 fl (7.0-11.0); MONO % 10.9 % (1.0-6.0); RBC 3.45 10^6/uL (3.5-6.1); RED CELL DISTRIBUTION WIDTH 13.5 % (11.5-14.5); WHITE BLOOD COUNT 8.8 10^3/uL (4.5-11.0)
[2018-02-23 07:12] LABS: BLOOD UREA NITROGEN 12 mg/dL (7-21); CALCIUM 8.5 mg/dL (8.4-10.5); GFR NON-AFRICAN AMERICAN > 60
[2018-02-23] MEDS: Enoxaparin 40 mg Syringe SC SCH (09:35)
[2018-02-23] MEDS: POLYETHYLENE GLYCOL 3350 17 GM/Dose PACKET PO SCH ×2 (09:36→17:36)
[2018-02-23] MEDS: Pantoprazole 40 mg EC Tab PO SCH (09:36)
--- NOTE | 2018-02-23 09:40 | CP.PCM.PN ---
Subjective - Date & Time of Evaluation Date of Evaluation: 02/23/18 Time of Evaluation: 07:50 - Subjective Subjective: Dashawn Bergeron, PGY-1 Progress Note for Hospitalist Service Patient seen and evaluated at bedside. Patient reports tolerating diet. Patient also has not been OOB since Friday. No acute events reported overnight. Hemoglobin has improved. Objective - Vital Signs/Intake and Output Vital Signs (last 24 hours): Temp Pulse Resp BP Pulse Ox 99.4 F 90 20 128/78 100 02/23/18 06:00 02/23/18 06:00 02/23/18 06:00 02/23/18 06:00 02/23/18 06:00 Intake and Output: 02/23/18 02/23/18 06:59 18:59 Intake Total 480 Output Total 3 Balance 477 - Medications Medications: Current Medications Acetaminophen (Tylenol 325mg Tab) 650 mg PO Q6H PRN PRN Reason: Fever >100.4 F Last Admin: 02/23/18 09:36 Dose: 650 mg Dextrose (Dextrose 50% Inj) 0 ml IV STAT PRN; Protocol PRN Reason: Hypoglycemia Protocol Docusate Sodium (Colace) 100 mg PO TID [facility] Last Admin: 02/23/18 09:36 Dose: 100 mg Enoxaparin Sodium (Lovenox) 40 mg SC DAILY [facility]; Protocol Last Admin: 02/23/18 09:35 Dose: 40 mg Vancomycin HCl (Vancomycin 1gm) 1 gm in 250 mls @ 167 mls/hr IVPB Q12H [facility]; Protocol Last Admin: 02/23/18 05:15 Dose: 167 mls/hr Piperacillin Sod/Tazobactam Sod (Zosyn 3.375 In Ns 100ml) 100 mls @ 25 mls/hr IVPB Q8 [facility]; Protocol Stop: 02/27/18 22:01 Last Admin: 02/23/18 06:19 Dose: 25 mls/hr Dextrose (Dextrose 5% In Water 1000 Ml) 1,000 mls @ 0 mls/hr IV .Q0M PRN; Protocol PRN Reason: Hypoglycemia Protocol Ibuprofen (Motrin Tab) 600 mg PO Q6H PRN PRN Reason: Fever >100.4 F Last Admin: 02/20/18 18:06 Dose: 600 mg Insulin Human Lispro (Humalog Med) 0 units SC ACHS [facility]; Protocol Last Admin: 02/23/18 09:35 Dose: 1 unit Morphine Sulfate (Morphine) 4 mg IVP Q4H PRN PRN Reason: Pain, severe (8-10) Last Admin: 02/23/18 03:46 Dose: 4 mg Ondansetron HCl (Zofran Inj) 4 mg IVP Q4H PRN PRN Reason: Nausea/Vomiting Pantoprazole Sodium (Protonix Ec Tab) 40 mg PO ACB [facility] Last Admin: 02/23/18 09:36 Dose: 40 mg Polyethylene Glycol (Miralax) 17 gm PO BID [facility] Last Admin: 02/23/18 09:36 Dose: 17 gm - Labs Labs: 02/23/18 06:15 02/23/18 06:15 PT 11.5 SECONDS (9.4-12.5) 02/17/18 10:15 INR 1.00 02/17/18 10:15 APTT 25.4 Seconds (25.1-36.5) 02/17/18 10:15 - Additional Findings Additional findings: - Constitutional Appears: Non-toxic, No Acute Distress - Head Exam Head Exam: ATRAUMATIC, NORMAL INSPECTION, NORMOCEPHALIC - Eye Exam Eye Exam: EOMI, Normal appearance Pupil Exam: NORMAL ACCOMODATION - ENT Exam ENT Exam: Mucous Membranes Moist, Normal Exam - Neck Exam Neck Exam: Full ROM, Normal Inspection - Respiratory Exam Respiratory Exam: Clear to Ausculation Bilateral, NORMAL BREATHING PATTERN. absent: Accessory Muscle Use, Rales, Rhonchi, Wheezes, Respiratory Distress, Stridor - Cardiovascular Exam Cardiovascular Exam: Tachycardia, +S1, +S2 - GI/Abdominal Exam GI & Abdominal Exam: Soft, Normal Bowel Sounds. absent: Distended, Firm, Guarding, Rigid, Tenderness, Organomegaly, Rebound - Extremities Exam Extremities Exam: Normal Capillary Refill. absent: Calf Tenderness, Joint Swelling Additional comments: Right Lower Ext is s/p ORIF of the proximal femoral shaft. No signs of hematoma noted. Improved ROM of lower extremities bilaterally. Distal pulses are intact. - Back Exam Back Exam: NORMAL INSPECTION - Neurological Exam Neurological Exam: Alert, Awake, Oriented x3 - Psychiatric Exam Psychiatric exam: Normal Affect, Normal Mood - Skin Skin Exam: Dry, Intact, Normal Color, Warm Assessment and Plan - Assessment and Plan (Free Text) Assessment: Assessment: 62 yo M with no pmhx who presented with right leg pain s/p fall from a rig. Found to have a comminuted displaced fracture of the proximal shaft of the femur with separation of the lesser trochanter. POD 5 s/p R ORIF procedure. Currently being monitored for post-op fever with systemic inflammatory response syndrome, source to be determined. No further fevers, blood and urine cxs neg after 4 days and 3 days respectively. Plan: POD# 5 s/p R ORIF procedure -c/w incentive spirometer -Imaging - XR R femur: comminuted displaced fracture of the proximal shaft of the femur with separation of the lesser trochanter - CT hip: acute common communited fracture of proximal right femur. Edematous changes primarily within the adductor musculature. -Ortho (Dr. Kat) recs appreciated -POD #5 s/p R ORIF (02/18) -received 2 unit pRBC transfusion during procedure, 700 cc blood volume loss -s/p 2 unit pRBC tranfusion (02/21), Hb 9.5 on 02/23 -Hb/Hct: 9.5/29.0 (02/22) -s/p 2 unit pRBC transfusion (02/21), as per Dr. Kat -Medications -morphine 4mg IVP q4 prn , slow release oxycodone 20 mg PO q12 -NS @ 70 cc/hr Post-op fever with systemic inflammatory response syndrome, source to be determined. - Tmax 103.2 (02/20), last fever 02/21 of 100.9 - currently afebrile, continue to monitor for fevers -CXR: no active disease -UA: negative -Bcx, Ucx negative -Medications -Tylenol q6 prn ID 02/[id number] Loza: d/c Vancomycin and Zosyn since blood, urine cx have been negative, PCT is equivocal DM -A1C: 7.2 -ISS medium -accuchecks, hypoglycemic protocol Constipation -Miralax BID -bedside layton HTN 2/2 pain - improved - normotensive, continue to monitor PPx, Diet, Disposition -DVT: lovenox, scds -GI: protonix -Diet: HHD -Disposition: POD #5 s/p R ORIF, awaiting insurance info for acute rehab placement. Notified insurance dept. Patient seen, case reviewed, and plan approved by Dr. Lassiter. Dashawn Bergeron, PGY-1
--- NOTE | 2018-02-23 10:52 | RAD ---
Date of service: 02/23/2018 PROCEDURE: Right femur HISTORY: postop xrays s/p R HIP ORIF COMPARISON: TECHNIQUE: Two views portable FINDINGS: There is an intramedullary shashank and compression screw in the right hip and femur. There are no complicating factors. IMPRESSION: Negative study
--- NOTE | 2018-02-23 11:53 | CP.PCM.PN ---
Subjective - Date & Time of Evaluation Date of Evaluation: 02/23/18 Time of Evaluation: 08:05 - Subjective Subjective: No fevers, not in distress, right leg pain is improving, no nausea, no diarrhea. Objective - Vital Signs/Intake and Output Vital Signs (last 24 hours): Temp Pulse Resp BP Pulse Ox 99.4 F 95 H 20 142/87 99 02/22/18 06:00 02/22/18 06:00 02/22/18 06:00 02/22/18 06:00 02/22/18 06:00 Intake and Output: 02/22/18 02/22/18 06:59 18:59 Intake Total 2140 Output Total 950 Balance 1190 - Medications Medications: Current Medications Acetaminophen (Tylenol 325mg Tab) 650 mg PO Q6H PRN PRN Reason: Fever >100.4 F Last Admin: 02/21/18 16:59 Dose: 650 mg Docusate Sodium (Colace) 100 mg PO TID [facility] Last Admin: 02/22/18 10:50 Dose: Not Given Enoxaparin Sodium (Lovenox) 40 mg SC DAILY [facility]; Protocol Last Admin: 02/22/18 10:53 Dose: 40 mg Sodium Chloride (Sodium Chloride 0.45%) 1,000 mls @ 70 mls/hr IV .[id number] [facility] Last Admin: 02/22/18 10:57 Dose: 70 mls/hr Vancomycin HCl (Vancomycin 1gm) 1 gm in 250 mls @ 167 mls/hr IVPB Q12H [facility]; Protocol Last Admin: 02/22/18 08:38 Dose: 167 mls/hr Piperacillin Sod/Tazobactam Sod (Zosyn 3.375 In Ns 100ml) 100 mls @ 25 mls/hr IVPB Q8 [facility]; Protocol Stop: 02/27/18 22:01 Last Admin: 02/22/18 05:36 Dose: 25 mls/hr Ibuprofen (Motrin Tab) 600 mg PO Q6H PRN PRN Reason: Fever >100.4 F Last Admin: 02/20/18 18:06 Dose: 600 mg Morphine Sulfate (Morphine) 4 mg IVP Q4H PRN PRN Reason: Pain, severe (8-10) Last Admin: 02/22/18 08:29 Dose: 4 mg Ondansetron HCl (Zofran Inj) 4 mg IVP Q4H PRN PRN Reason: Nausea/Vomiting Pantoprazole Sodium (Protonix Ec Tab) 40 mg PO ACB [facility] Last Admin: 02/22/18 08:29 Dose: 40 mg Polyethylene Glycol (Miralax) 17 gm PO BID [facility] Last Admin: 02/22/18 10:50 Dose: Not Given - Labs Labs: 02/22/18 06:30 02/22/18 06:30 PT 11.5 SECONDS (9.4-12.5) 02/17/18 10:15 INR 1.00 02/17/18 10:15 APTT 25.4 Seconds (25.1-36.5) 02/17/18 10:15 - Constitutional Appears: Chronically Ill - Head Exam Head Exam: NORMAL INSPECTION - Respiratory Exam Respiratory Exam: Decreased Breath Sounds - Cardiovascular Exam Cardiovascular Exam: +S1, +S2 - GI/Abdominal Exam GI & Abdominal Exam: Soft. absent: Tenderness - Extremities Exam Additional comments: right thigh with dressings in place Assessment and Plan - Assessment and Plan (Free Text) Plan: Assessment Post-op fever with systemic inflammatory response syndrome, no source of infe ction identified right proximal femoral comminuted fracture S/P ORIF POD #4 Plan will d/c Vancomycin and Zosyn since blood, urine cx have been negative, PCT is equivocal; reviewed CXR which does not show infiltrates rapid Influenza test is negative, WBC count is normal and patient has no more fever will continue to monitor clinically
[2018-02-23] MEDS: oxyCODONE 20 mg ER Tab (oxyCONTIN) PO SCH ×2 (12:00→23:11)
--- NOTE | 2018-02-23 13:51 | CP.PCM.PN ---
Subjective - Date & Time of Evaluation Date of Evaluation: 02/23/18 Time of Evaluation: 13:47 - Subjective Subjective: Orthopedic progress note: Dr. Kat Patient was seen and examined OOB to chair comfortable. Pain well controlled. Febrile due to systemic inflammatory response syndrome, stable yesterday and today. Denies CP/SOB/N/V/D/fever. Objective - Vital Signs/Intake and Output Vital Signs (last 24 hours): Temp Pulse Resp BP Pulse Ox 99.4 F 90 20 128/78 100 02/23/18 06:00 02/23/18 06:00 02/23/18 06:00 02/23/18 06:00 02/23/18 06:00 Intake and Output: 02/23/18 02/23/18 06:59 18:59 Intake Total 480 Output Total 3 Balance 477 - Medications Medications: Current Medications Acetaminophen (Tylenol 325mg Tab) 650 mg PO Q6H PRN PRN Reason: Fever >100.4 F Last Admin: 02/23/18 09:36 Dose: 650 mg Dextrose (Dextrose 50% Inj) 0 ml IV STAT PRN; Protocol PRN Reason: Hypoglycemia Protocol Docusate Sodium (Colace) 100 mg PO TID [facility] Last Admin: 02/23/18 09:36 Dose: 100 mg Enoxaparin Sodium (Lovenox) 40 mg SC DAILY [facility]; Protocol Last Admin: 02/23/18 09:35 Dose: 40 mg Dextrose (Dextrose 5% In Water 1000 Ml) 1,000 mls @ 0 mls/hr IV .Q0M PRN; Protocol PRN Reason: Hypoglycemia Protocol Ibuprofen (Motrin Tab) 600 mg PO Q6H PRN PRN Reason: Fever >100.4 F Last Admin: 02/23/18 10:32 Dose: 600 mg Insulin Human Lispro (Humalog Med) 0 units SC ACHS [facility]; Protocol Last Admin: 02/23/18 09:35 Dose: 1 unit Morphine Sulfate (Morphine) 4 mg IVP Q4H PRN PRN Reason: Pain, severe (8-10) Last Admin: 02/23/18 10:32 Dose: 4 mg Ondansetron HCl (Zofran Inj) 4 mg IVP Q4H PRN PRN Reason: Nausea/Vomiting Oxycodone HCl (Oxycontin Extended Release Tab) 20 mg PO Q12 [facility] Pantoprazole Sodium (Protonix Ec Tab) 40 mg PO ACB [facility] Last Admin: 02/23/18 09:36 Dose: 40 mg Polyethylene Glycol (Miralax) 17 gm PO BID [facility] Last Admin: 02/23/18 09:36 Dose: 17 gm - Labs Labs: 02/23/18 06:15 02/23/18 06:15 PT 11.5 SECONDS (9.4-12.5) 02/17/18 10:15 INR 1.00 02/17/18 10:15 APTT 25.4 Seconds (25.1-36.5) 02/17/18 10:15 - Extremities Exam Additional comments: RLE: mild to moderate swelling diffuse about thigh Dressings Dry and intact Incisions CDI with ashleigh sensation intact SP/DP/TN motor intact EHL/FHL/TA/G pedal pulses intact calves soft NT b/l Assessment and Plan (1) Femur fracture, right Assessment & Plan: POD#5 s/p R subtroch fx ORIF with long IM nail -PT/OT WBAT -dressings changed -DVT ppx, can d/w with ASA 325 BID x 3-6 weeks -f/u in office within 7-10 days of discharge -above d/w Dr. Kat in agreement Status: Acute
[2018-02-24] MEDS: Morphine 4 mg/ml ISec IVP PRN ×2 (00:55→15:17)
[2018-02-24 07:00] LABS: BASO # 0.02 K/mm3 (0.0-2.0); BASO % 0.2 % (0.0-3.0); EOS # 0.6 (0.0-0.7); EOS % 6.5 % (1.5-5.0); GRAN # 5.28 (1.4-6.5); GRAN % 56.2 % (50.0-68.0); HEMOGLOBIN 9.8 g/dL (14.0-18.0); LYMPH # 2.4 (1.2-3.4); LYMPH % 25.7 % (22.0-35.0); MEAN CELL VOLUME 85.2 fl (80.0-105.0); MEAN CORPUSCULAR HEMOGLOBIN 27.9 pg (25.0-35.0); MEAN CORPUSCULAR HGB CONC 32.8 g/dl (31.0-37.0); MEAN PLATELET VOLUME 9.6 fl (7.0-11.0); MONO # 1.1 (0.1-0.6); MONO % 11.4 % (1.0-6.0); RBC 3.51 10^6/uL (3.5-6.1); RED CELL DISTRIBUTION WIDTH 13.8 % (11.5-14.5); WHITE BLOOD COUNT 9.4 10^3/uL (4.5-11.0)
[2018-02-24 07:13] LABS: BLOOD UREA NITROGEN 14 mg/dL (7-21); CALCIUM 8.7 mg/dL (8.4-10.5); GFR NON-AFRICAN AMERICAN > 60
[2018-02-24] MEDS: Insulin Lispro (humaLOG) MEDIUM Coverage SC SCH ×4 (08:03→21:43)
[2018-02-24] MEDS: Pantoprazole 40 mg EC Tab PO SCH (08:03)
[2018-02-24] MEDS: oxyCODONE 20 mg ER Tab (oxyCONTIN) PO SCH ×2 (10:45→21:43)
[2018-02-24] MEDS: Enoxaparin 40 mg Syringe SC SCH (10:45)
[2018-02-24] MEDS: POLYETHYLENE GLYCOL 3350 17 GM/Dose PACKET PO SCH ×2 (10:45→17:17)
[2018-02-24] MEDS ORDERED: Sod Polystyrene Sulf 15 gm/60 ml Susp PO STA (12:53)
--- NOTE | 2018-02-24 16:02 | CP.PCM.PN ---
Subjective - Date & Time of Evaluation Date of Evaluation: 02/24/18 Time of Evaluation: 07:27 - Subjective Subjective: Dashawn Bergeron, PGY-1 Progress Note for Hospitalist Service Patient seen and evaluated at bedside. No acute events reported overnight. Tootie leos denies CP, SOB, abdominal pain, N/V. Residual pain on RLE. Objective - Vital Signs/Intake and Output Vital Signs (last 24 hours): Temp Pulse Resp BP Pulse Ox 98.3 F 104 H 20 92/56 L 100 02/24/18 14:00 02/24/18 14:00 02/24/18 14:00 02/24/18 14:00 02/24/18 14:00 Intake and Output: 02/24/18 02/24/18 06:59 18:59 Intake Total 360 Output Total 500 Balance -140 - Medications Medications: Current Medications Acetaminophen (Tylenol 325mg Tab) 650 mg PO Q6H PRN PRN Reason: Fever >100.4 F Last Admin: 02/23/18 09:36 Dose: 650 mg Dextrose (Dextrose 50% Inj) 0 ml IV STAT PRN; Protocol PRN Reason: Hypoglycemia Protocol Docusate Sodium (Colace) 100 mg PO TID [facility] Last Admin: 02/24/18 13:22 Dose: Not Given Enoxaparin Sodium (Lovenox) 40 mg SC DAILY [facility]; Protocol Last Admin: 02/24/18 10:45 Dose: 40 mg Dextrose (Dextrose 5% In Water 1000 Ml) 1,000 mls @ 0 mls/hr IV .Q0M PRN; Protocol PRN Reason: Hypoglycemia Protocol Ibuprofen (Motrin Tab) 600 mg PO Q6H PRN PRN Reason: Fever >100.4 F Last Admin: 02/23/18 10:32 Dose: 600 mg Insulin Human Lispro (Humalog Med) 0 units SC ACHS [facility]; Protocol Last Admin: 02/24/18 12:00 Dose: Not Given Morphine Sulfate (Morphine) 4 mg IVP Q4H PRN PRN Reason: Pain, severe (8-10) Last Admin: 02/24/18 15:17 Dose: 4 mg Ondansetron HCl (Zofran Inj) 4 mg IVP Q4H PRN PRN Reason: Nausea/Vomiting Oxycodone HCl (Oxycontin Extended Release Tab) 20 mg PO Q12 [facility] Last Admin: 02/24/18 10:45 Dose: 20 mg Pantoprazole Sodium (Protonix Ec Tab) 40 mg PO ACB [facility] Last Admin: 02/24/18 08:03 Dose: 40 mg Polyethylene Glycol (Miralax) 17 gm PO BID [facility] Last Admin: 02/24/18 10:45 Dose: 17 gm - Labs Labs: 02/24/18 06:30 02/24/18 06:30 PT 11.5 SECONDS (9.4-12.5) 02/17/18 10:15 INR 1.00 02/17/18 10:15 APTT 25.4 Seconds (25.1-36.5) 02/17/18 10:15 - Additional Findings Additional findings: - Constitutional Appears: Non-toxic, No Acute Distress - Head Exam Head Exam: ATRAUMATIC, NORMAL INSPECTION, NORMOCEPHALIC - Eye Exam Eye Exam: EOMI, Normal appearance Pupil Exam: NORMAL ACCOMODATION - ENT Exam ENT Exam: Mucous Membranes Moist, Normal Exam - Neck Exam Neck Exam: Full ROM, Normal Inspection - Respiratory Exam Respiratory Exam: Clear to Ausculation Bilateral, NORMAL BREATHING PATTERN. absent: Accessory Muscle Use, Rales, Rhonchi, Wheezes, Respiratory Distress, Stridor - Cardiovascular Exam Cardiovascular Exam: Tachycardia, +S1, +S2 - GI/Abdominal Exam GI & Abdominal Exam: Soft, Normal Bowel Sounds. absent: Distended, Firm, Guarding, Rigid, Tenderness, Organomegaly, Rebound - Extremities Exam Extremities Exam: Normal Capillary Refill. absent: Calf Tenderness, Joint Swelling Additional comments: Right Lower Ext is s/p ORIF of the proximal femoral shaft. No signs of hematoma noted. Improved ROM of lower extremities bilaterally. Distal pulses are intact. - Back Exam Back Exam: NORMAL INSPECTION - Neurological Exam Neurological Exam: Alert, Awake, Oriented x3 - Psychiatric Exam Psychiatric exam: Normal Affect, Normal Mood - Skin Skin Exam: Dry, Intact, Normal Color, Warm Assessment and Plan - Assessment and Plan (Free Text) Assessment: Assessment: 62 yo M with no pmhx who presented with right leg pain s/p fall from a rig. Found to have a comminuted displaced fracture of the proximal shaft of the femur with separation of the lesser trochanter. POD 5 s/p R ORIF procedure. Currently being monitored for post-op fever with systemic inflammatory response syndrome, source to be determined. No further fevers, blood and urine cxs neg after 4 days and 3 days respectively. Plan: POD# 6 s/p R ORIF procedure -c/w incentive spirometer -Imaging - XR R femur: comminuted displaced fracture of the proximal shaft of the femur with separation of the lesser trochanter - CT hip: acute common communited fracture of proximal right femur. Edematous changes primarily within the adductor musculature. Repeat XR R femur: no complications, intramedullary shashank in place. -Ortho (Dr. Kat) recs appreciated -POD #6 s/p R ORIF (02/18) -s/p 2 unit pRBC tranfusion (02/21), Hb 9.8 improved to 02/24 -Medications -morphine 4mg IVP q4 prn , slow release oxycodone 20 mg PO q12 -NS @ 70 cc/hr Post-op fever with systemic inflammatory response syndrome, source to be determined. - Tmax 103.2 (02/20), last fever 02/21 of 100.9 - currently afebrile, continue to monitor for fevers -CXR: no active disease -UA: negative -Bcx, Ucx negative -Medications -Tylenol q6 prn ID 02/[id number] Loza: d/c Vancomycin and Zosyn since blood, urine cx have been negative Hyperkalemia 5.2 02/24, kayexalate 15 given monitor in AM labs DM -A1C: 7.2 -ISS medium -accuchecks, hypoglycemic protocol Constipation -Miralax BID -bedside layton HTN 2/2 pain - improved - normotensive, continue to monitor PPx, Diet, Disposition -DVT: lovenox, scds -GI: protonix -Diet: HHD Disposition: SW: Patient provided information to insurance dept. Contacted [employer] and spoke to Alon who states he is waiting on the insurance information from his boss and he will call him again. [employer] will be unable to place patient in rehab without payor source. Patient seen, case reviewed, and plan approved by Dr. Lassiter. Dashawn Bergeron, PGY-1
--- NOTE | 2018-02-25 00:14 | PN ---
DATE: 02/24/2018 SUBJECTIVE: The patient is in bed, in no acute distress, nontoxic. PHYSICAL EXAMINATION VITAL SIGNS: Temperature is 98, blood pressure is 92/50, respiratory rate 20, heart rate of 104. HEENT: Unremarkable. NECK: Supple. LUNGS: Have decreased breath sounds. HEART: Normal S1 and S2. ABDOMEN: Soft. LABORATORY DATA: Reveals a white count of 9.4. Chemistries are noted. Urinalysis is noted. Microbiology reveals urine cultures negative, blood cultures negative. Influenza is negative. ASSESSMENT AND PLAN: This is a 62-year-old with postop fever with systemic inflammatory response syndrome, right proximal femur comminuted fracture, status post open reduction internal fixation postprocedure day #5, received vancomycin and Zosyn. All cultures negative. Currently off antibiotics. Review of orders, . White count is 9.4, off antibiotics, afebrile and the patient has been afebrile now for several days with negative cultures blood and urine and repeat blood cultures negative. We will order HIV because of his age, just for complete. Brian Ndiaye MD
[2018-02-25 07:29] LABS: BASO # 0.03 K/mm3 (0.0-2.0); BASO % 0.3 % (0.0-3.0); EOS # 0.6 (0.0-0.7); EOS % 6.6 % (1.5-5.0); GRAN # 5.68 (1.4-6.5); GRAN % 60.7 % (50.0-68.0); HEMOGLOBIN 9.8 g/dL (14.0-18.0); LYMPH # 1.7 (1.2-3.4); LYMPH % 18.6 % (22.0-35.0); MEAN CORPUSCULAR HEMOGLOBIN 27.8 pg (25.0-35.0); MEAN CORPUSCULAR HGB CONC 32.7 g/dl (31.0-37.0); MEAN PLATELET VOLUME 9.3 fl (7.0-11.0); MONO # 1.3 (0.1-0.6); MONO % 13.8 % (1.0-6.0); RBC 3.53 10^6/uL (3.5-6.1); RED CELL DISTRIBUTION WIDTH 13.7 % (11.5-14.5); WHITE BLOOD COUNT 9.4 10^3/uL (4.5-11.0)
[2018-02-25 07:44] LABS: BLOOD UREA NITROGEN 16 mg/dL (7-21); CALCIUM 8.8 mg/dL (8.4-10.5); GFR NON-AFRICAN AMERICAN > 60
[2018-02-25] MEDS: Pantoprazole 40 mg EC Tab PO SCH (08:44)
[2018-02-25] MEDS: Enoxaparin 40 mg Syringe SC SCH (10:43)
[2018-02-25] MEDS: oxyCODONE 20 mg ER Tab (oxyCONTIN) PO SCH ×2 (10:44→21:19)
[2018-02-25] MEDS: POLYETHYLENE GLYCOL 3350 17 GM/Dose PACKET PO SCH ×2 (10:44→17:20)
[2018-02-25] MEDS: Insulin Lispro (humaLOG) MEDIUM Coverage SC SCH ×4 (10:45→22:25)
--- NOTE | 2018-02-25 12:12 | CP.PCM.PN ---
Subjective - Date & Time of Evaluation Date of Evaluation: 02/25/18 Time of Evaluation: 08:00 - Subjective Subjective: Dashawn Bergeron, PGY-1 Progress Note for Hospitalist Service Patient seen and evaluated at bedside. No acute events reported overnight. Tootie leos denies CP, SOB, abdominal pain, N/V. Residual pain on RLE but patient reports being able to get out of bed and stand with assistance. Pending insurance coverage for [facility] in [facility]. Objective - Vital Signs/Intake and Output Vital Signs (last 24 hours): Temp Pulse Resp BP Pulse Ox 98.6 F 93 H 18 113/69 98 02/25/18 06:00 02/25/18 06:00 02/25/18 06:00 02/25/18 06:00 02/25/18 06:00 Intake and Output: 02/25/18 02/25/18 06:59 18:59 Intake Total 360 Output Total 1100 Balance -740 - Medications Medications: Current Medications Acetaminophen (Tylenol 325mg Tab) 650 mg PO Q6H PRN PRN Reason: Fever >100.4 F Last Admin: 02/23/18 09:36 Dose: 650 mg Dextrose (Dextrose 50% Inj) 0 ml IV STAT PRN; Protocol PRN Reason: Hypoglycemia Protocol Docusate Sodium (Colace) 100 mg PO TID [facility] Last Admin: 02/25/18 10:43 Dose: 100 mg Enoxaparin Sodium (Lovenox) 40 mg SC DAILY [facility]; Protocol Last Admin: 02/25/18 10:43 Dose: 40 mg Dextrose (Dextrose 5% In Water 1000 Ml) 1,000 mls @ 0 mls/hr IV .Q0M PRN; Protocol PRN Reason: Hypoglycemia Protocol Ibuprofen (Motrin Tab) 600 mg PO Q6H PRN PRN Reason: Fever >100.4 F Last Admin: 02/23/18 10:32 Dose: 600 mg Insulin Human Lispro (Humalog Med) 0 units SC [facility]; Protocol Last Admin: 02/25/18 10:45 Dose: Not Given Morphine Sulfate (Morphine) 4 mg IVP Q4H PRN PRN Reason: Pain, severe (8-10) Last Admin: 02/24/18 15:17 Dose: 4 mg Ondansetron HCl (Zofran Inj) 4 mg IVP Q4H PRN PRN Reason: Nausea/Vomiting Oxycodone HCl (Oxycontin Extended Release Tab) 20 mg PO Q12 [facility] Last Admin: 02/25/18 10:44 Dose: 20 mg Pantoprazole Sodium (Protonix Ec Tab) 40 mg PO ACB [facility] Last Admin: 02/25/18 08:44 Dose: 40 mg Polyethylene Glycol (Miralax) 17 gm PO BID [facility] Last Admin: 02/25/18 10:44 Dose: 17 gm - Labs Labs: 02/25/18 07:00 02/25/18 07:00 PT 11.5 SECONDS (9.4-12.5) 02/17/18 10:15 INR 1.00 02/17/18 10:15 APTT 25.4 Seconds (25.1-36.5) 02/17/18 10:15 - Additional Findings Additional findings: - Constitutional Appears: Non-toxic, No Acute Distress - Head Exam Head Exam: ATRAUMATIC, NORMAL INSPECTION, NORMOCEPHALIC - Eye Exam Eye Exam: EOMI, Normal appearance Pupil Exam: NORMAL ACCOMODATION - ENT Exam ENT Exam: Mucous Membranes Moist, Normal Exam - Neck Exam Neck Exam: Full ROM, Normal Inspection - Respiratory Exam Respiratory Exam: Clear to Ausculation Bilateral, NORMAL BREATHING PATTERN. absent: Accessory Muscle Use, Rales, Rhonchi, Wheezes, Respiratory Distress, Stridor - Cardiovascular Exam Cardiovascular Exam: Tachycardia, +S1, +S2 - GI/Abdominal Exam GI & Abdominal Exam: Soft, Normal Bowel Sounds. absent: Distended, Firm, Guarding, Rigid, Tenderness, Organomegaly, Rebound - Extremities Exam Extremities Exam: Normal Capillary Refill. absent: Calf Tenderness, Joint Swell ing Additional comments: Right Lower Ext is s/p ORIF of the proximal femoral shaft. No signs of hematoma noted. Improved ROM of lower extremities bilaterally. Distal pulses are intact. - Back Exam Back Exam: NORMAL INSPECTION - Neurological Exam Neurological Exam: Alert, Awake, Oriented x3 - Psychiatric Exam Psychiatric exam: Normal Affect, Normal Mood - Skin Skin Exam: Dry, Intact, Normal Color, Warm Assessment and Plan - Assessment and Plan (Free Text) Assessment: 62 yo M with no pmhx who presented with right leg pain s/p fall from a rig. Found to have a comminuted displaced fracture of the proximal shaft of the femur with separation of the lesser trochanter. POD 5 s/p R ORIF procedure. Currently being monitored for post-op fever with systemic inflammatory response syndrome, source to be determined. No further fevers, blood and urine cxs neg after 4 days and 3 days respectively. Plan: POD# 7 s/p R ORIF procedure -c/w incentive spirometer -Imaging - XR R femur: comminuted displaced fracture of the proximal shaft of the femur with separation of the lesser trochanter - CT hip: acute common communited fracture of proximal right femur. Edematous changes primarily within the adductor musculature. Repeat XR R femur: no complications, intramedullary shashank in place. -Ortho (Dr. Kat) recs appreciated -POD #7 s/p R ORIF (02/18) -s/p 2 unit pRBC tranfusion (02/21), Hb 9.8 improved to 02/24 -Medications -morphine 4mg IVP q4 prn , slow release oxycodone 20 mg PO q12 -NS @ 70 cc/hr Post-op fever with systemic inflammatory response syndrome, source to be determined. - Tmax 103.2 (02/20), last fever 02/21 of 100.9 - currently afebrile, continue to monitor for fevers -CXR: no active disease -UA: negative -Bcx, Ucx negative -Medications -Tylenol q6 prn ID [id number] Loza: d/c Vancomycin and Zosyn since blood, urine cx have been negative Hyperkalemia 5.2 02/24, kayexalate 15 given stable - monitor in AM labs DM -A1C: 7.2 -ISS medium -accuchecks, hypoglycemic protocol Constipation -Miralax BID -bedside layton HTN 2/2 pain - improved - normotensive, continue to monitor PPx, Diet, Disposition -DVT: lovenox, scds -GI: protonix -Diet: HHD Disposition: SW: [employer] will be unable to place patient in rehab without payer source. Pending rehab placement in [facility] (which has agreed to take patient) pending [employer] insurance coverage. Patient seen, case reviewed, and plan approved by Dr. Lassiter. Dashawn Bergeron, PGY-1
--- NOTE | 2018-02-26 01:04 | PN ---
DATE: 02/25/2018 SUBJECTIVE: The patient is in bed, in no acute distress, nontoxic. PHYSICAL EXAMINATION: VITAL SIGNS: Temperature is 98, blood pressure is 130/80, respiratory rate of 18, and heart rate of 103. HEENT: Unremarkable. NECK: Supple. LUNGS: Have decreased breath sounds. HEART: Normal S1 and S2. ABDOMEN: Soft and nontender. LABORATORY DATA: Reveals a white count of 9.4, hemoglobin of 9, platelets of 397. Chemistries reveal a BUN of 16, creatinine of 1. Urinalysis is noted. Review of orders. Review of the patient would be off of antibiotics. ASSESSMENT AND PLAN: This is a 62-year-old with postoperative fevers; systemic inflammatory response syndrome; right proximal femur comminuted fracture, status post open reduction and internal fixation, postprocedure day #6, received vancomycin and Zosyn. Cultures negative. Currently off of antibiotics, afebrile. 's progress note is reviewed. The patient is at risk for developing nosocomial infections. Brian Ndiaye MD
[2018-02-26 06:57] LABS: BASO # 0.04 K/mm3 (0.0-2.0); BASO % 0.5 % (0.0-3.0); EOS # 0.7 (0.0-0.7); EOS % 7.6 % (1.5-5.0); GRAN # 5.05 (1.4-6.5); GRAN % 57.3 % (50.0-68.0); HEMOGLOBIN 9.6 g/dL (14.0-18.0); LYMPH # 2.1 (1.2-3.4); LYMPH % 24.1 % (22.0-35.0); MEAN CELL VOLUME 85.3 fl (80.0-105.0); MEAN CORPUSCULAR HEMOGLOBIN 27.7 pg (25.0-35.0); MEAN CORPUSCULAR HGB CONC 32.5 g/dl (31.0-37.0); MEAN PLATELET VOLUME 9.3 fl (7.0-11.0); MONO # 0.9 (0.1-0.6); MONO % 10.5 % (1.0-6.0); RBC 3.46 10^6/uL (3.5-6.1); RED CELL DISTRIBUTION WIDTH 13.5 % (11.5-14.5); WHITE BLOOD COUNT 8.8 10^3/uL (4.5-11.0)
[2018-02-26 07:21] LABS: BLOOD UREA NITROGEN 16 mg/dL (7-21); CALCIUM 8.6 mg/dL (8.4-10.5); GFR NON-AFRICAN AMERICAN > 60
[2018-02-26] MEDS: Insulin Lispro (humaLOG) MEDIUM Coverage SC SCH ×3 (08:01→17:14)
[2018-02-26] MEDS: Pantoprazole 40 mg EC Tab PO SCH (08:01)
[2018-02-26] MEDS: oxyCODONE 20 mg ER Tab (oxyCONTIN) PO SCH ×2 (10:11→20:49)
[2018-02-26] MEDS: POLYETHYLENE GLYCOL 3350 17 GM/Dose PACKET PO SCH ×3 (10:11→17:17)
[2018-02-26] MEDS: Enoxaparin 40 mg Syringe SC SCH (10:11)
--- NOTE | 2018-02-26 11:25 | PN ---
DATE: 02/26/2018 SUBJECTIVE: The patient is in bed, in no acute distress, nontoxic. No fevers, no chills. PHYSICAL EXAMINATION: VITAL SIGNS: Temperature is 98, blood pressure is 120/70, respiratory rate of 16. HEENT: Unremarkable. NECK: Supple. LUNGS: Have decreased breath sounds. HEART: Normal S1, S2. ABDOMEN: Soft, nontender. No organomegaly. No rebound, no guarding. No masses. LABORATORY EXAMINATION: Noted. ASSESSMENT AND PLAN: A 62-year-old male was seen earlier in 565, bed one with status post fevers, status post systemic inflammatory response syndrome, right proximal femur comminuted fracture status post open reduction internal fixation. Postprocedure day #7 received vancomycin and Zosyn. Cultures negative. Currently, off of antibiotics, afebrile and we will follow with you. Brian Ndiaye MD
--- NOTE | 2018-02-26 14:36 | CP.PCM.PN ---
<Dashawn Bergeron - Last Filed: 02/26/18 14:24> Subjective - Date & Time of Evaluation Date of Evaluation: 02/26/18 Time of Evaluation: 08:00 - Subjective Subjective: Dashawn Bergeron PGY-1 Progress Note for Hospitalist Service Patient seen and evaluated at bedside. No acute events reported overnight. Patient denies CP, SOB, abdominal pain, N/V. Residual pain on RLE but patient reports being able to get out of bed and stand with assistance. Pending insurance coverage for [facility] in [facility]. Objective - Vital Signs/Intake and Output Vital Signs (last 24 hours): Temp Pulse Resp BP Pulse Ox 98 F 86 20 126/71 100 02/26/18 06:00 02/26/18 06:00 02/26/18 06:00 02/26/18 06:00 02/26/18 06:00 Intake and Output: 02/26/18 02/26/18 06:59 18:59 Intake Total 900 Output Total 550 Balance 350 - Medications Medications: Current Medications Acetaminophen (Tylenol 325mg Tab) 650 mg PO Q6H PRN PRN Reason: Fever >100.4 F Last Admin: 02/23/18 09:36 Dose: 650 mg Dextrose (Dextrose 50% Inj) 0 ml IV STAT PRN; Protocol PRN Reason: Hypoglycemia Protocol Docusate Sodium (Colace) 100 mg PO TID [facility] Last Admin: 02/26/18 13:18 Dose: Not Given Enoxaparin Sodium (Lovenox) 40 mg SC DAILY [facility]; Protocol Last Admin: 02/26/18 10:11 Dose: 40 mg Dextrose (Dextrose 5% In Water 1000 Ml) 1,000 mls @ 0 mls/hr IV .Q0M PRN; Protocol PRN Reason: Hypoglycemia Protocol Ibuprofen (Motrin Tab) 600 mg PO Q6H PRN PRN Reason: Fever >100.4 F Last Admin: 02/23/18 10:32 Dose: 600 mg Insulin Human Lispro (Humalog Med) [address] [facility]; Protocol Last Admin: 02/26/18 12:05 Dose: 1 unit Morphine Sulfate (Morphine) 4 mg IVP Q8H PRN PRN Reason: Pain, severe (8-10) Ondansetron HCl (Zofran Inj) 4 mg IVP Q4H PRN PRN Reason: Nausea/Vomiting Oxycodone HCl (Oxycontin Extended Release Tab) 20 mg PO Q12 [facility] Last Admin: 02/26/18 10:11 Dose: 20 mg Pantoprazole Sodium (Protonix Ec Tab) 40 mg PO ACB [facility] Last Admin: 02/26/18 08:01 Dose: 40 mg Polyethylene Glycol (Miralax) 17 gm PO BID [facility] Last Admin: 02/26/18 10:11 Dose: 17 gm - Labs Labs: 02/26/18 05:30 02/26/18 05:30 PT 11.5 SECONDS (9.4-12.5) 02/17/18 10:15 INR 1.00 02/17/18 10:15 APTT 25.4 Seconds (25.1-36.5) 02/17/18 10:15 - Additional Findings Additional findings: - Constitutional Appears: Non-toxic, No Acute Distress - Head Exam Head Exam: ATRAUMATIC, NORMAL INSPECTION, NORMOCEPHALIC - Eye Exam Eye Exam: EOMI, Normal appearance Pupil Exam: NORMAL ACCOMODATION - ENT Exam ENT Exam: Mucous Membranes Moist, Normal Exam - Neck Exam Neck Exam: Full ROM, Normal Inspection - Respiratory Exam Respiratory Exam: Clear to Ausculation Bilateral, NORMAL BREATHING PATTERN. absent: Accessory Muscle Use, Rales, Rhonchi, Wheezes, Respiratory Distress, Stridor - Cardiovascular Exam Cardiovascular Exam: Tachycardia, +S1, +S2 - GI/Abdominal Exam GI & Abdominal Exam: Soft, Normal Bowel Sounds. absent: Distended, Firm, Guarding, Rigid, Tenderness, Organomegaly, Rebound - Extremities Exam Extremities Exam: Normal Capillary Refill. absent: Calf Tenderness, Joint Swelling Additional comments: Right Lower Ext is s/p ORIF of the proximal femoral shaft. No signs of hematoma noted. Improved ROM of lower extremities bilaterally. Distal pulses are intact. - Back Exam Back Exam: NORMAL INSPECTION - Neurological Exam Neurological Exam: Alert, Awake, Oriented x3 - Psychiatric Exam Psychiatric exam: Normal Affect, Normal Mood - Skin Skin Exam: Dry, Intact, Normal Color, Warm Assessment and Plan - Assessment and Plan (Free Text) Assessment: 62 yo M with no pmhx who presented with right leg pain s/p fall from a rig. Found to have a comminuted displaced fracture of the proximal shaft of the femur with separation of the lesser trochanter. POD 5 s/p R ORIF procedure. Cu rrently being monitored for post-op fever with systemic inflammatory response syndrome, source to be determined. No further fevers, final blood and urine cxs negative. Plan: POD# 8 s/p R ORIF procedure -c/w incentive spirometer -Imaging - XR R femur: comminuted displaced fracture of the proximal shaft of the femur with separation of the lesser trochanter - CT hip: acute common communited fracture of proximal right femur. Edematous changes primarily within the adductor musculature. Repeat XR R femur: no complications, intramedullary shashank in place. -Ortho (Dr. Kat) recs appreciated -POD #8 s/p R ORIF (02/18) -s/p 2 unit pRBC tranfusion (02/21), Hb 9.8 improved to 02/24 -Medications -weaned morphine to 4mg IVP q8 prn 02/26, slow release oxycodone 20 mg PO q12 -NS @ 70 cc/hr Post-op fever with systemic inflammatory response syndrome, source to be determined. - Tmax 103.2 (02/20), last fever 02/21 of 100.9 - currently afebrile, continue to monitor for fevers -CXR: no active disease -UA: negative -Bcx, Ucx negative -Medications -Tylenol q6 prn ID [id number] Loza: d/c Vancomycin and Zosyn since blood, urine cx have been negative DM -A1C: 7.2 -ISS medium -accuchecks, hypoglycemic protocol Constipation -Miralax BID -bedside layton HTN 2/2 pain - improved - normotensive, continue to monitor PPx, Diet, Disposition -DVT: lovenox, scds -GI: protonix -Diet: HHD -PT: [facility] Disposition: SW: Practice Office Associate will be unable to place patient in rehab without payer source. Pending rehab placement in [facility] (which has agreed to take patient) pending [facility] insurance coverage. Patient seen, case reviewed, and plan approved by Dr. Kessler. Dashawn Bergeron, PGY-1 <Nicole Kessler - Last Filed: 02/26/18 14:51> Objective - Vital Signs/Intake and Output Vital Signs (last 24 hours): Temp Pulse Resp BP Pulse Ox 98 F 86 20 126/71 100 02/26/18 06:00 02/26/18 06:00 02/26/18 06:00 02/26/18 06:00 02/26/18 06:00 Intake and Output: 02/26/18 02/26/18 06:59 18:59 Intake Total 900 Output Total 550 Balance 350 - Medications Medications: Current Medications Acetaminophen (Tylenol 325mg Tab) 650 mg PO Q6H PRN PRN Reason: Fever >100.4 F Last Admin: 02/23/18 09:36 Dose: 650 mg Dextrose (Dextrose 50% Inj) 0 ml IV STAT PRN; Protocol PRN Reason: Hypoglycemia Protocol Docusate Sodium (Colace) 100 mg PO TID [facility] Last Admin: 02/26/18 13:18 Dose: Not Given Enoxaparin Sodium (Lovenox) 40 mg SC DAILY [facility]; Protocol Last Admin: 02/26/18 10:11 Dose: 40 mg Dextrose (Dextrose 5% In Water 1000 Ml) 1,000 mls @ 0 mls/hr IV .Q0M PRN; Protocol PRN Reason: Hypoglycemia Protocol Ibuprofen (Motrin Tab) 600 mg PO Q6H PRN PRN Reason: Fever >100.4 F Last Admin: 02/23/18 10:32 Dose: 600 mg Insulin Human Lispro (Humalog Med) 0 units SC ACHS [facility]; Protocol Last Admin: 02/26/18 12:05 Dose: 1 unit Morphine Sulfate (Morphine) 4 mg IVP Q8H PRN PRN Reason: Pain, severe (8-10) Ondansetron HCl (Zofran Inj) 4 mg IVP Q4H PRN PRN Reason: Nausea/Vomiting Oxycodone HCl (Oxycontin Extended Release Tab) 20 mg PO Q12 [facility] Last Admin: 02/26/18 10:11 Dose: 20 mg Pantoprazole Sodium (Protonix Ec Tab) 40 mg PO ACB [facility] Last Admin: 02/26/18 08:01 Dose: 40 mg Polyethylene Glycol (Miralax) 17 gm PO BID [facility] Last Admin: 02/26/18 10:11 Dose: 17 gm - Labs Labs: 02/26/18 05:30 02/26/18 05:30 PT 11.5 SECONDS (9.4-12.5) 02/17/18 10:15 INR 1.00 02/17/18 10:15 APTT 25.4 Seconds (25.1-36.5) 02/17/18 10:15 Attending/Attestation - Attestation I have personally seen and examined this patient.: Yes I have fully participated in the care of the patient.: Yes I have reviewed all pertinent clinical information, including history, physical exam and plan: Yes Notes (Text): 02/26/18 14:46 62 year old male with no significant past medical history who presented s/p fall from his rig. He was found to have comminuted displaced fracture of the proximal shaft of the femur with separation of the lesser trochanter. He was seen by orthopedics and is s/p ORIF POD #8. Post-op he had fever and was started on broad spectum antibiotics. However workup has been negative and antibiotics were discontinued. He was also found to have postop anemia which improved after prbc transfusion. He is on miralax bid for constipation. He is on insulin ss for diabetes. A1c was 7.2; can start metformin on discharge. Currently he is awaiting rehab placement. Nicole Kessler MD Hospitalist.
[2018-02-27 07:28] LABS: BASO # 0.02 K/mm3 (0.0-2.0); BASO % 0.3 % (0.0-3.0); EOS # 0.6 (0.0-0.7); EOS % 8.5 % (1.5-5.0); GRAN # 3.6 (1.4-6.5); GRAN % 51.5 % (50.0-68.0); HEMOGLOBIN 9.7 g/dL (14.0-18.0); LYMPH # 2.1 (1.2-3.4); LYMPH % 30.5 % (22.0-35.0); MEAN CELL VOLUME 86.2 fl (80.0-105.0); MEAN CORPUSCULAR HGB CONC 32.4 g/dl (31.0-37.0); MONO # 0.6 (0.1-0.6); MONO % 9.2 % (1.0-6.0); RBC 3.47 10^6/uL (3.5-6.1); RED CELL DISTRIBUTION WIDTH 13.5 % (11.5-14.5)
[2018-02-27 07:49] LABS: ALBUMIN 3.3 g/dL (3.0-4.8); ALT/SGPT 79 U/L (7-56); AST/SGOT 57 U/L (17-59); BLOOD UREA NITROGEN 17 mg/dL (7-21); CALCIUM 8.9 mg/dL (8.4-10.5); GFR NON-AFRICAN AMERICAN > 60
[2018-02-27] MEDS: Pantoprazole 40 mg EC Tab PO SCH (08:28)
[2018-02-27] MEDS: Insulin Lispro (humaLOG) MEDIUM Coverage SC SCH ×3 (08:28→16:39)
[2018-02-27] MEDS: Enoxaparin 40 mg Syringe SC SCH (09:51)
[2018-02-27] MEDS: POLYETHYLENE GLYCOL 3350 17 GM/Dose PACKET PO SCH ×2 (09:52→17:25)
[2018-02-27] MEDS: oxyCODONE 20 mg ER Tab (oxyCONTIN) PO SCH (10:30)
--- NOTE | 2018-02-27 10:30 | PN ---
DATE: 02/27/2018 SUBJECTIVE: The patient is in bed, in no acute distress, nontoxic. PHYSICAL EXAMINATION: VITAL SIGNS: Temperature is 98, blood pressure is 120/60, respiratory rate 20. HEENT: Unremarkable. NECK: Supple. LUNGS: Have decreased breath sounds. HEART: Normal S1, S2. ABDOMEN: Soft, nontender. LABORATORY EXAMINATION: Reveals a white count of 7000, hemoglobin of 9. BUN of 17, creatinine of 0.9. ASSESSMENT AND PLAN: This is a 62-year-old male status post fevers with systemic inflammatory response syndrome; right proximal femur fracture, status post open reduction internal fixation, postprocedure day #8; currently off antibiotics, afebrile. The patient is at risk for developing nosocomial infections. Review of orders reveals the patient to be off antibiotics and has been afebrile and white count is normal at 7. We will follow with you. Brian Ndiaye MD
[2018-02-27] MEDS: Morphine 4 mg/ml ISec IVP PRN (12:26)
--- NOTE | 2018-02-27 14:11 | CP.PCM.PN ---
<Dashawn Bergeron - Last Filed: 02/27/18 14:07> Subjective - Date & Time of Evaluation Date of Evaluation: 02/27/18 Time of Evaluation: 07:40 - Subjective Subjective: Dashawn Bergeron PGY-1 Progress Note for Hospitalist Service Patient seen and evaluated at bedside. No acute events reported overnight. Patient denies CP, SOB, abdominal pain, N/V. Residual pain on RLE but patient reports being able to get out of bed, bathe and stand with assistance. Pain controlled. Pending insurance coverage for [facility] possibly in [facility] near [facility]. Objective - Vital Signs/Intake and Output Vital Signs (last 24 hours): Temp Pulse Resp BP Pulse Ox 98.2 F 90 20 123/65 98 02/27/18 06:00 02/27/18 06:00 02/27/18 06:00 02/27/18 06:00 02/27/18 06:00 Intake and Output: 02/27/18 02/27/18 06:59 18:59 Output Total 700 Balance -700 - Medications Medications: Current Medications Acetaminophen (Tylenol 325mg Tab) 650 mg PO Q6H PRN PRN Reason: Fever >100.4 F Last Admin: 02/23/18 09:36 Dose: 650 mg Dextrose (Dextrose 50% Inj) 0 ml IV STAT PRN; Protocol PRN Reason: Hypoglycemia Protocol Docusate Sodium (Colace) 100 mg PO TID [facility] Last Admin: 02/27/18 09:51 Dose: 100 mg Enoxaparin Sodium (Lovenox) 40 mg SC DAILY [facility]; Protocol Last Admin: 02/27/18 09:51 Dose: 40 mg Dextrose (Dextrose 5% In Water 1000 Ml) 1,000 mls @ 0 mls/hr IV .Q0M PRN; Protocol PRN Reason: Hypoglycemia Protocol Ibuprofen (Motrin Tab) 600 mg PO Q6H PRN PRN Reason: Fever >100.4 F Last Admin: 02/23/18 10:32 Dose: 600 mg Insulin Human Lispro (Humalog Med) 0 units SC ACHS [facility]; Protocol Last Admin: 02/27/18 12:26 Dose: 1 unit Morphine Sulfate (Morphine) 4 mg IVP Q8H PRN PRN Reason: Pain, severe (8-10) Last Admin: 02/27/18 12:26 Dose: 4 mg Ondansetron HCl (Zofran Inj) 4 mg IVP Q4H PRN PRN Reason: Nausea/Vomiting Pantoprazole Sodium (Protonix Ec Tab) 40 mg PO ACB [facility] Last Admin: 02/27/18 08:28 Dose: 40 mg Polyethylene Glycol (Miralax) 17 gm PO BID [facility] Last Admin: 02/27/18 09:52 Dose: 17 gm - Labs Labs: 02/27/18 07:00 02/27/18 07:00 PT 11.5 SECONDS (9.4-12.5) 02/17/18 10:15 INR 1.00 02/17/18 10:15 APTT 25.4 Seconds (25.1-36.5) 02/17/18 10:15 - Additional Findings Additional findings: - Constitutional Appears: Non-toxic, No Acute Distress - Head Exam Head Exam: ATRAUMATIC, NORMAL INSPECTION, NORMOCEPHALIC - Eye Exam Eye Exam: EOMI, Normal appearance Pupil Exam: NORMAL ACCOMODATION - ENT Exam ENT Exam: Mucous Membranes Moist, Normal Exam - Neck Exam Neck Exam: Full ROM, Normal Inspection - Respiratory Exam Respiratory Exam: Clear to Ausculation Bilateral, NORMAL BREATHING PATTERN. absent: Accessory Muscle Use, Rales, Rhonchi, Wheezes, Respiratory Distress, Stridor - Cardiovascular Exam Cardiovascular Exam: Tachycardia, +S1, +S2 - GI/Abdominal Exam GI & Abdominal Exam: Soft, Normal Bowel Sounds. absent: Distended, Firm, Guardi ng, Rigid, Tenderness, Organomegaly, Rebound - Extremities Exam Extremities Exam: Normal Capillary Refill. absent: Calf Tenderness, Joint Swelling Additional comments: Right Lower Ext is s/p ORIF of the proximal femoral shaft. No signs of hematoma noted. Improved ROM of lower extremities bilaterally. Distal pulses are intact. - Back Exam Back Exam: NORMAL INSPECTION - Neurological Exam Neurological Exam: Alert, Awake, Oriented x3 - Psychiatric Exam Psychiatric exam: Normal Affect, Normal Mood - Skin Skin Exam: Dry, Intact, Normal Color, Warm Assessment and Plan - Assessment and Plan (Free Text) Assessment: 62 yo M with no pmhx who presented with right leg pain s/p fall from a rig. Found to have a comminuted displaced fracture of the proximal shaft of the femur with separation of the lesser trochanter. POD 5 s/p R ORIF procedure. Currently being monitored for post-op fever with systemic inflammatory response syndrome, source to be determined. No further fevers, final blood and urine cxs negative. Off antibiotics and pending insurance coverage for [facility]. Plan: POD# 9 s/p R ORIF procedure -c/w incentive spirometer -Imaging - XR R femur: comminuted displaced fracture of the proximal shaft of the femur with separation of the lesser trochanter - CT hip: acute common communited fracture of proximal right femur. Edematous changes primarily within the adductor musculature. Repeat XR R femur: no complications, intramedullary shashank in place. -Ortho (Dr. Kat) recs appreciated -POD #9 s/p R ORIF (02/18) -s/p 2 unit pRBC tranfusion (02/21), Hb 9.8 improved to 02/24 -Medications -weaned morphine to 4mg IVP q8 prn 02/26, slow release oxycodone 20 mg PO q12 -NS @ 70 cc/hr Post-op fever with systemic inflammatory response syndrome, source to be determined. - Tmax 103.2 (02/20), last fever 02/21 of 100.9 - currently afebrile, continue to monitor for fevers -CXR: no active disease -UA: negative -Bcx, Ucx negative -Medications -Tylenol q6 prn ID [id number] Loza: d/c Vancomycin and Zosyn since blood, urine cx have been negative DM -A1C: 7.2 -ISS medium -accuchecks, hypoglycemic protocol Constipation -Miralax BID -bedside layton HTN 2/2 pain - improved - normotensive, continue to monitor PPx, Diet, Disposition -DVT: lovenox, scds -GI: protonix -Diet: HHD -PT: [facility] Disposition: SW: pending insurance coverage from [employer] comp. Patient seen, case reviewed, and plan approved by Dr. Kessler. Dashawn Peters, PGY-1 <Nicole Kessler - Last Filed: 02/27/18 14:39> Objective - Vital Signs/Intake and Output Vital Signs (last 24 hours): Temp Pulse Resp BP Pulse Ox 98.2 F 90 20 123/65 98 02/27/18 06:00 02/27/18 06:00 02/27/18 06:00 02/27/18 06:00 02/27/18 06:00 Intake and Output: 02/27/18 02/27/18 06:59 18:59 Output Total 700 Balance -700 - Medications Medications: Current Medications Acetaminophen (Tylenol 325mg Tab) 650 mg PO Q6H PRN PRN Reason: Fever >100.4 F Last Admin: 02/23/18 09:36 Dose: 650 mg Dextrose (Dextrose 50% Inj) 0 ml IV STAT PRN; Protocol PRN Reason: Hypoglycemia Protocol Docusate Sodium (Colace) 100 mg PO TID [facility] Last Admin: 02/27/18 14:03 Dose: 100 mg Enoxaparin Sodium (Lovenox) 40 mg SC DAILY [facility]; Protocol Last Admin: 02/27/18 09:51 Dose: 40 mg Dextrose (Dextrose 5% In Water 1000 Ml) 1,000 mls @ 0 mls/hr IV .Q0M PRN; Protocol PRN Reason: Hypoglycemia Protocol Ibuprofen (Motrin Tab) 600 mg PO Q6H PRN PRN Reason: Fever >100.4 F Last Admin: 02/23/18 10:32 Dose: 600 mg Insulin Human Lispro (Humalog Med) 0 units SC ACHS [facility]; Protocol Last Admin: 02/27/18 12:26 Dose: 1 unit Morphine Sulfate (Morphine) 4 mg IVP Q8H PRN PRN Reason: Pain, severe (8-10) Last Admin: 02/27/18 12:26 Dose: 4 mg Ondansetron HCl (Zofran Inj) 4 mg IVP Q4H PRN PRN Reason: Nausea/Vomiting Pantoprazole Sodium (Protonix Ec Tab) 40 mg PO ACB [facility] Last Admin: 02/27/18 08:28 Dose: 40 mg Polyethylene Glycol (Miralax) 17 gm PO BID [facility] Last Admin: 02/27/18 09:52 Dose: 17 gm - Labs Labs: 02/27/18 07:00 02/27/18 07:00 PT 11.5 SECONDS (9.4-12.5) 02/17/18 10:15 INR 1.00 02/17/18 10:15 APTT 25.4 Seconds (25.1-36.5) 02/17/18 10:15 Attending/Attestation - Attestation I have personally seen and examined this patient.: Yes I have fully participated in the care of the patient.: Yes I have reviewed all pertinent clinical information, including history, physical exam and plan: Yes Notes (Text): 02/27/18 14:37 62 year old male with no significant past medical history who presented s/p fall from his rig. He was found to have comminuted displaced fracture of the proximal shaft of the femur with separation of the lesser trochanter. He was seen by orthopedics and is s/p ORIF POD #9. Post-op he had fever and was started on broad spectum antibiotics. However workup has been negative and antibiotics were discontinued. He was also found to have postop anemia which improved after prbc transfusion. He is on miralax bid for constipation. Last bowel movement was yesterday. He is on insulin ss for diabetes. A1c was 7.2; can start metformin on discharge. Currently he is awaiting rehab placement; pending insurance from worker's compensation. Nicole Kessler MD Hospitalist.
--- NOTE | 2018-02-28 06:50 | CP.PCM.PN ---
<Freddy Holden - Last Filed: 02/28/18 17:56> Subjective - Date & Time of Evaluation Date of Evaluation: 02/28/18 Time of Evaluation: 06:50 - Subjective Subjective: Resident Progress Note for Hospitalist Service Patient examined at bedside. No acute events overnight. Offers no complaints at this time. Denies fever, chills, chest pain, shortness of breath, abdominal pain, dysuria. Objective - Vital Signs/Intake and Output Vital Signs (last 24 hours): Temp Pulse Resp BP Pulse Ox 99 F 90 20 113/77 100 02/27/18 14:00 02/27/18 14:00 02/27/18 14:00 02/27/18 14:00 02/27/18 14:00 Intake and Output: 02/27/18 02/28/18 18:59 06:59 Intake Total 800 Balance 800 - Medications Medications: Current Medications Acetaminophen (Tylenol 325mg Tab) 650 mg PO Q6H PRN PRN Reason: Fever >100.4 F Last Admin: 02/23/18 09:36 Dose: 650 mg Dextrose (Dextrose 50% Inj) 0 ml IV STAT PRN; Protocol PRN Reason: Hypoglycemia Protocol Docusate Sodium (Colace) 100 mg PO TID [facility] Last Admin: 02/27/18 17:25 Dose: 100 mg Enoxaparin Sodium (Lovenox) 40 mg SC DAILY [facility]; Protocol Last Admin: 02/27/18 09:51 Dose: 40 mg Dextrose (Dextrose 5% In Water 1000 Ml) 1,000 mls @ 0 mls/hr IV .Q0M PRN; Protocol PRN Reason: Hypoglycemia Protocol Ibuprofen (Motrin Tab) 600 mg PO Q6H PRN PRN Reason: Fever >100.4 F Last Admin: 02/23/18 10:32 Dose: 600 mg Insulin Human Lispro (Humalog Med) 0 units SC ACHS [facility]; Protocol Last Admin: 02/27/18 16:39 Dose: 1 unit Morphine Sulfate (Morphine) 4 mg IVP Q8H PRN PRN Reason: Pain, severe (8-10) Last Admin: 02/27/18 12:26 Dose: 4 mg Ondansetron HCl (Zofran Inj) 4 mg IVP Q4H PRN PRN Reason: Nausea/Vomiting Pantoprazole Sodium (Protonix Ec Tab) 40 mg PO ACB [facility] Last Admin: 02/27/18 08:28 Dose: 40 mg Polyethylene Glycol (Miralax) 17 gm PO BID [facility] Last Admin: 02/27/18 17:25 Dose: 17 gm - Labs Labs: 02/27/18 07:00 02/27/18 07:00 PT 11.5 SECONDS (9.4-12.5) 02/17/18 10:15 INR 1.00 02/17/18 10:15 APTT 25.4 Seconds (25.1-36.5) 02/17/18 10:15 - Additional Findings Additional findings: - Constitutional Appears: Non-toxic, No Acute Distress - Head Exam Head Exam: ATRAUMATIC, NORMAL INSPECTION, NORMOCEPHALIC - Eye Exam Eye Exam: EOMI, Normal appearance Pupil Exam: NORMAL ACCOMODATION - ENT Exam ENT Exam: Mucous Membranes Moist, Normal Exam - Neck Exam Neck Exam: Full ROM, Normal Inspection - Respiratory Exam Respiratory Exam: Clear to Ausculation Bilateral, NORMAL BREATHING PATTERN. absent: Accessory Muscle Use, Rales, Rhonchi, Wheezes, Respiratory Distress, Stridor - Cardiovascular Exam Cardiovascular Exam: Tachycardia, +S1, +S2 - GI/Abdominal Exam GI & Abdominal Exam: Soft, Normal Bowel Sounds. absent: Distended, Firm, Guarding, Rigid, Tenderness, Organomegaly, Rebound - Extremities Exam Extremities Exam: Normal Capillary Refill. absent: Calf Tenderness, Joint Swelling Additional comments: Right Lower Ext is s/p ORIF of the proximal femoral shaft. No signs of hematoma noted. Improved ROM of lower extremities bilaterally. Distal pulses are intact. - Back Exam Back Exam: NORMAL INSPECTION - Neurological Exam Neurological Exam: Alert, Awake, Oriented x3 - Psychiatric Exam Psychiatric exam: Normal Affect, Normal Mood - Skin Skin Exam: Dry, Intact, Normal Color, Warm Assessment and Plan - Assessment and Plan (Free Text) Assessment: 62 yo M with no pmhx who presented with right leg pain s/p fall from a rig. Found to have a comminuted displaced fracture of the proximal shaft of the femur with separation of the lesser trochanter. POD 5 s/p R ORIF procedure. Currently being monitored for post-op fever with systemic inflammatory response syndrome, source to be determined. No further fevers, final blood and urine cxs negative. Off antibiotics and pending insurance coverage for [facility]. Plan: POD# 10 s/p R ORIF procedure -c/w incentive spirometer -Imaging - XR R femur: comminuted displaced fracture of the proximal shaft of the femur with separation of the lesser trochanter - CT hip: acute common communited fracture of proximal right femur. Edematous changes primarily within the adductor musculature. Repeat XR R femur: no complications, intramedullary shashank in place. -Ortho (Dr. Kat) recs appreciated -POD #9 s/p R ORIF (02/18) -s/p 2 unit pRBC tranfusion (02/21), Hb 9.8 improved to 02/24 -Medications -weaned morphine to 4mg IVP q8 prn 02/26, slow release oxycodone 20 mg PO q12 -NS @ 70 cc/hr Post-op fever with systemic inflammatory response syndrome, source to be determined. - Tmax 103.2 (02/20), last fever 02/21 of 100.9 - currently afebrile, continue to monitor for fevers - CXR: no active disease - UA: negative - Bcx, Ucx negative - Medications -Tylenol q6 prn ID [id number] Loza: d/c Vancomycin and Zosyn since blood, urine cx have been negative DM -A1C: 7.2 -ISS medium -accuchecks, hypoglycemic protocol Constipation - Miralax BID - bedside layton HTN 2/2 pain - improved - normotensive, continue to monitor PPx, Diet, Disposition - DVT: lovenox, scds - GI: protonix - Diet: HHD - PT: [facility] Disposition: SW: pending insurance coverage from [employer] comp. Patient seen, case reviewed, and plan approved by Dr. Checo Holden PGY-1 <Nicole Kessler - Last Filed: 02/28/18 18:11> Objective - Vital Signs/Intake and Output Vital Signs (last 24 hours): Temp Pulse Resp BP Pulse Ox 98.0 F 90 18 131/79 99 02/28/18 14:00 02/28/18 14:00 02/28/18 14:00 02/28/18 14:00 02/28/18 14:00 - Medications Medications: Current Medications Acetaminophen (Tylenol 325mg Tab) 650 mg PO Q6H PRN PRN Reason: Fever >100.4 F Last Admin: 02/23/18 09:36 Dose: 650 mg Dextrose (Dextrose 50% Inj) 0 ml IV STAT PRN; Protocol PRN Reason: Hypoglycemia Protocol Docusate Sodium (Colace) 100 mg PO TID [facility] Last Admin: 02/28/18 17:49 Dose: Not Given Enoxaparin Sodium (Lovenox) 40 mg SC DAILY [facility]; Protocol Last Admin: 02/28/18 10:39 Dose: 40 mg Dextrose (Dextrose 5% In Water 1000 Ml) 1,000 mls @ 0 mls/hr IV .Q0M PRN; Protocol PRN Reason: Hypoglycemia Protocol Ibuprofen (Motrin Tab) 600 mg PO Q6H PRN PRN Reason: Fever >100.4 F Last Admin: 02/23/18 10:32 Dose: 600 mg Insulin Human Lispro (Humalog Med) 0 units SC ACHS [facility]; Protocol Last Admin: 02/28/18 17:48 Dose: 3 unit Morphine Sulfate (Morphine) 4 mg IVP Q8H PRN PRN Reason: Pain, severe (8-10) Last Admin: 02/27/18 12:26 Dose: 4 mg Ondansetron HCl (Zofran Inj) 4 mg IVP Q4H PRN PRN Reason: Nausea/Vomiting Pantoprazole Sodium (Protonix Ec Tab) 40 mg PO ACB [facility] Last Admin: 02/28/18 10:39 Dose: 40 mg Polyethylene Glycol (Miralax) 17 gm PO BID [facility] Last Admin: 02/28/18 17:49 Dose: Not Given - Labs Labs: 02/28/18 07:00 02/28/18 07:00 PT 11.5 SECONDS (9.4-12.5) 02/17/18 10:15 INR 1.00 02/17/18 10:15 APTT 25.4 Seconds (25.1-36.5) 02/17/18 10:15 Attending/Attestation - Attestation I have personally seen and examined this patient.: Yes I have fully participated in the care of the patient.: Yes I have reviewed all pertinent clinical information, including history, physical exam and plan: Yes Notes (Text): 02/28/18 18:09 62 year old male with no significant past medical history who presented s/p fall from his rig. He was found to have comminuted displaced fracture of the pro ximal shaft of the femur with separation of the lesser trochanter. He was seen by orthopedics and is s/p ORIF POD #10. Post-op he had fever and was started on broad spectum antibiotics. However w orkup has been negative and antibiotics were discontinued. He was also found to have postop anemia which improved after prbc transfusion. He is on miralax bid for constipation. He is on insulin ss for diabetes. A1c was 7.2; can start metformin on discharge. Potassium today is 5.5. Will give kayexalate and repeat potassium. Currently he is awaiting rehab placement; pending insurance from worker's compensation. Nicole Kessler MD Hospitalist.
[2018-02-28 08:06] LABS: BLOOD UREA NITROGEN 14 mg/dL (7-21); CALCIUM 8.8 mg/dL (8.4-10.5); GFR NON-AFRICAN AMERICAN > 60
[2018-02-28 08:09] LABS: BASO # 0.02 K/mm3 (0.0-2.0); BASO % 0.3 % (0.0-3.0); EOS # 0.7 (0.0-0.7); EOS % 8.6 % (1.5-5.0); GRAN # 4.53 (1.4-6.5); GRAN % 59.9 % (50.0-68.0); HEMOGLOBIN 10.1 g/dL (14.0-18.0); LYMPH # 1.7 (1.2-3.4); LYMPH % 22.9 % (22.0-35.0); MEAN CELL VOLUME 86.5 fl (80.0-105.0); MEAN CORPUSCULAR HEMOGLOBIN 27.8 pg (25.0-35.0); MEAN CORPUSCULAR HGB CONC 32.2 g/dl (31.0-37.0); MEAN PLATELET VOLUME 9.1 fl (7.0-11.0); MONO # 0.6 (0.1-0.6); MONO % 8.3 % (1.0-6.0); RBC 3.63 10^6/uL (3.5-6.1); RED CELL DISTRIBUTION WIDTH 13.6 % (11.5-14.5); WHITE BLOOD COUNT 7.6 10^3/uL (4.5-11.0)
[2018-02-28] MEDS: Insulin Lispro (humaLOG) MEDIUM Coverage SC SCH ×4 (08:21→23:14)
--- NOTE | 2018-02-28 10:18 | PN ---
DATE: 02/28/2018 SUBJECTIVE: The patient is in bed, in no acute distress. PHYSICAL EXAMINATION: VITAL SIGNS: On exam, temperature is 98, blood pressure is 113/70, respiratory rate of 20 and heart rate of 90. HEENT: Unremarkable. NECK: Supple. LUNGS: Had decreased breath sounds. HEART: Normal S1, S2. ABDOMEN: Soft. LABORATORY EXAMINATION: Reveals a white count of 7.6, hemoglobin of 10 and platelets of 563,000. Chemistries reveals a BUN of 14 and creatinine of 0.9. Urinalysis is noted. Serology is noted and microbiology reveals the blood cultures are negative and urine cultures are negative. ASSESSMENT AND PLAN: This is a 62-year-old male status post fever, systemic inflammatory response syndrome, right proximal femur fracture status post open reduction internal fixation. Postprocedure day #9, currently off of antibiotics, afebrile and review of orders confirms the patient to be off of antibiotics. We will follow with you. Brian Ndiaye MD
[2018-02-28] MEDS: Pantoprazole 40 mg EC Tab PO SCH (10:39)
[2018-02-28] MEDS: Enoxaparin 40 mg Syringe SC SCH (10:39)
[2018-02-28] MEDS: POLYETHYLENE GLYCOL 3350 17 GM/Dose PACKET PO SCH ×2 (10:40→17:49)
[2018-02-28] MEDS ORDERED: Sod Polystyrene Sulf 15 gm/60 ml Susp PO ONE (13:24)
[2018-02-28] MEDS: Morphine 4 mg/ml ISec IVP PRN (20:29)
--- NOTE | 2018-03-01 07:20 | CP.PCM.PN ---
<Freddy Holden L - Last Filed: 03/01/18 12:16> Subjective - Date & Time of Evaluation Date of Evaluation: 03/01/18 Time of Evaluation: 07:30 - Subjective Subjective: Resident Progress Note for Hospitalist Service Patient examined at bedside. No acute events overnight. Patient admits to some right hip pain, however this pain is decreased from prior. Also admits to having diarrhea. Denies fevers, chills, headache, dizziness, chest pain, shortness of breath, abdominal pain. Objective - Vital Signs/Intake and Output Vital Signs (last 24 hours): Temp Pulse Resp BP Pulse Ox 98.3 F 96 H 18 123/81 98 02/28/18 22:50 02/28/18 22:50 02/28/18 22:50 02/28/18 22:50 02/28/18 22:50 Intake and Output: 03/01/18 03/01/18 06:59 18:59 Intake Total 1080 Output Total 1000 Balance 80 - Medications Medications: Current Medications Acetaminophen (Tylenol 325mg Tab) 650 mg PO Q6H PRN PRN Reason: Fever >100.4 F Last Admin: 02/23/18 09:36 Dose: 650 mg Dextrose (Dextrose 50% Inj) 0 ml IV STAT PRN; Protocol PRN Reason: Hypoglycemia Protocol Docusate Sodium (Colace) 100 mg PO TID [facility] Last Admin: 02/28/18 17:49 Dose: Not Given Enoxaparin Sodium (Lovenox) 40 mg SC DAILY [facility]; Protocol Last Admin: 02/28/18 10:39 Dose: 40 mg Dextrose (Dextrose 5% In Water 1000 Ml) 1,000 mls @ 0 mls/hr IV .Q0M PRN; Protocol PRN Reason: Hypoglycemia Protocol Ibuprofen (Motrin Tab) 600 mg PO Q6H PRN PRN Reason: Fever >100.4 F Last Admin: 02/23/18 10:32 Dose: 600 mg Insulin Human Lispro (Humalog Med) 0 units SC [facility]; Protocol Last Admin: 02/28/18 23:14 Dose: Not Given Morphine Sulfate (Morphine) 4 mg IVP Q8H PRN PRN Reason: Pain, severe (8-10) Last Admin: 02/28/18 20:29 Dose: 4 mg Ondansetron HCl (Zofran Inj) 4 mg IVP Q4H PRN PRN Reason: Nausea/Vomiting Pantoprazole Sodium (Protonix Ec Tab) 40 mg PO ACB [facility] Last Admin: 02/28/18 10:39 Dose: 40 mg Polyethylene Glycol (Miralax) 17 gm PO BID [facility] Last Admin: 02/28/18 17:49 Dose: Not Given - Labs Labs: 02/28/18 07:00 02/28/18 18:30 PT 11.5 SECONDS (9.4-12.5) 02/17/18 10:15 INR 1.00 02/17/18 10:15 APTT 25.4 Seconds (25.1-36.5) 02/17/18 10:15 - Additional Findings Additional findings: - Constitutional Appears: Non-toxic, No Acute Distress - Head Exam Head Exam: ATRAUMATIC, NORMAL INSPECTION, NORMOCEPHALIC - Eye Exam Eye Exam: EOMI, Normal appearance - ENT Exam ENT Exam: Mucous Membranes Moist, Normal Exam - Neck Exam Neck Exam: Full ROM, Normal Inspection - Respiratory Exam Respiratory Exam: Clear to Ausculation Bilateral, NORMAL BREATHING PATTERN - Cardiovascular Exam Cardiovascular Exam: RRR, +S1, +S2 - GI/Abdominal Exam GI & Abdominal Exam: Soft, Normal Bowel Sounds - Extremities Exam Extremities Exam: Normal Capillary Refill. absent: Calf Tenderness, Joint Swelling Additional comments: Right Lower Ext is s/p ORIF of the proximal femoral shaft. No signs of hematoma noted. Improved ROM of lower extremities bilaterally. Distal pulses are intact. - Back Exam Back Exam: NORMAL INSPECTION - Neurological Exam Neurological Exam: Alert, Awake - Psychiatric Exam Psychiatric exam: Normal Affect, Normal Mood - Skin Skin Exam: Dry, Intact, Normal Color, Warm Assessment and Plan - Assessment and Plan (Free Text) Assessment: 62 yo M with no pmhx who presented with right leg pain s/p fall from a rig. Found to have a comminuted displaced fracture of the proximal shaft of the femur with separation of the lesser trochanter. POD 5 s/p R ORIF procedure. Currently being monitored for post-op fever with systemic inflammatory response syndrome, source to be determined. No further fevers, final blood and urine cxs negative. Off antibiotics and pending insurance coverage for [facility]. Plan: s/p R ORIF procedure -c/w incentive spirometer -Imaging - XR R femur: comminuted displaced fracture of the proximal shaft of the femur with separation of the lesser trochanter - CT hip: acute common communited fracture of proximal right femur. Edematous changes primarily within the adductor musculature. Repeat XR R femur: no complications, intramedullary shashank in place. -Ortho (Dr. Kat) recs appreciated -s/p 2 unit pRBC tranfusion (02/21) -oxycodone 20 mg PO q12 Post-op fever with systemic inflammatory response syndrome, source to be determined. - Tmax 103.2 (02/20), last fever 02/21 of 100.9 - currently afebrile, continue to monitor for fevers - CXR: no active disease - UA: negative - Bcx, Ucx negative - Tylenol 650 mg q6 prn ID [id number] Loza: d/c Vancomycin and Zosyn since blood, urine cx have been negative DM -A1C: 7.2 -ISS medium -accuchecks, hypoglycemic protocol Constipation - Miralax BID PRN HTN 2/2 pain - improved - normotensive, continue to monitor PPx, Diet, Disposition - DVT: lovenox, scds - GI: protonix - Diet: HHD - PT: [facility]EN Disposition: SW: pending insurance coverage from [employer] comp. Patient seen, case reviewed, and plan approved by Dr. Checo Holden PGY-1 <Nicole Kessler - Last Filed: 03/01/18 16:02> Objective - Vital Signs/Intake and Output Vital Signs (last 24 hours): Temp Pulse Resp BP Pulse Ox 97.9 F 101 H 18 126/84 99 03/01/18 14:00 03/01/18 14:00 03/01/18 14:00 03/01/18 14:00 03/01/18 14:00 Intake and Output: 03/01/18 03/01/18 06:59 18:59 Intake Total 1080 Output Total 1000 Balance 80 - Medications Medications: Current Medications Acetaminophen (Tylenol 325mg Tab) 650 mg PO Q6H PRN PRN Reason: Fever >100.4 F Last Admin: 02/23/18 09:36 Dose: 650 mg Dextrose (Dextrose 50% Inj) 0 ml IV STAT PRN; Protocol PRN Reason: Hypoglycemia Protocol Docusate Sodium (Colace) 100 mg PO TID PRN PRN Reason: Constipation Enoxaparin Sodium (Lovenox) 40 mg SC DAILY [facility]; Protocol Last Admin: 03/01/18 09:25 Dose: 40 mg Dextrose (Dextrose 5% In Water 1000 Ml) 1,000 mls @ 0 mls/hr IV .Q0M PRN; Protocol PRN Reason: Hypoglycemia Protocol Ibuprofen (Motrin Tab) 600 mg PO Q6H PRN PRN Reason: Fever >100.4 F Last Admin: 02/23/18 10:32 Dose: 600 mg Insulin Human Lispro (Humalog Med) 0 units SC ACHS [facility]; Protocol Last Admin: 03/01/18 12:37 Dose: 1 unit Morphine Sulfate (Morphine) 4 mg IVP Q8H PRN PRN Reason: Pain, severe (8-10) Last Admin: 03/01/18 09:26 Dose: 4 mg Ondansetron HCl (Zofran Inj) 4 mg IVP Q4H PRN PRN Reason: Nausea/Vomiting Oxycodone HCl (Oxycontin Extended Release Tab) 20 mg PO Q12 PRN PRN Reason: Pain, severe (8-10) Pantoprazole Sodium (Protonix Ec Tab) 40 mg PO ACB [facility] Last Admin: 03/01/18 08:04 Dose: 40 mg Polyethylene Glycol (Miralax) 17 gm PO BID PRN PRN Reason: Constipation - Labs Labs: 03/01/18 07:00 03/01/18 07:00 PT 11.5 SECONDS (9.4-12.5) 02/17/18 10:15 INR 1.00 02/17/18 10:15 APTT 25.4 Seconds (25.1-36.5) 02/17/18 10:15 Attending/Attestation - Attestation I have personally seen and examined this patient.: Yes I have fully participated in the care of the patient.: Yes I have reviewed all pertinent clinical information, including history, physical exam and plan: Yes Notes (Text): 03/01/18 15:59 62 year old male with no significant past medical history who presented s/p fall from his rig. He was found to have comminuted displaced fracture of the proximal shaft of the femur with separation of the lesser trochanter. He was seen by orthopedics and is s/p ORIF POD #11. Post-op he had fever and was started on broad spectum antibiotics. However workup has been negative and antibiotics were discontinued. He was also found to have postop anemia which improved after prbc transfusion. He is on miralax which we will switch to prn for constipation. He is on insulin ss for diabetes. A1c was 7.2; can start metformin on discharge. Currently he is awaiting rehab placement; pending insurance from worker[employer] compensation. Nicole Kessler MD Hospitalist.
[2018-03-01 08:03] LABS: BASO # 0.02 K/mm3 (0.0-2.0); BASO % 0.2 % (0.0-3.0); EOS # 0.8 (0.0-0.7); EOS % 9.2 % (1.5-5.0); GRAN # 5.22 (1.4-6.5); GRAN % 58.6 % (50.0-68.0); HEMOGLOBIN 9.9 g/dL (14.0-18.0); LYMPH # 2.1 (1.2-3.4); MEAN CELL VOLUME 86.3 fl (80.0-105.0); MEAN CORPUSCULAR HEMOGLOBIN 27.7 pg (25.0-35.0); MEAN CORPUSCULAR HGB CONC 32.1 g/dl (31.0-37.0); MEAN PLATELET VOLUME 8.9 fl (7.0-11.0); MONO # 0.8 (0.1-0.6); RBC 3.57 10^6/uL (3.5-6.1); RED CELL DISTRIBUTION WIDTH 13.8 % (11.5-14.5); WHITE BLOOD COUNT 8.9 10^3/uL (4.5-11.0)
[2018-03-01] MEDS: Pantoprazole 40 mg EC Tab PO SCH (08:04)
[2018-03-01] MEDS: Insulin Lispro (humaLOG) MEDIUM Coverage SC SCH ×4 (08:04→22:00)
[2018-03-01 08:12] LABS: BLOOD UREA NITROGEN 13 mg/dL (7-21); CALCIUM 8.8 mg/dL (8.4-10.5); GFR NON-AFRICAN AMERICAN > 60
[2018-03-01] MEDS: Enoxaparin 40 mg Syringe SC SCH (09:25)
[2018-03-01] MEDS: POLYETHYLENE GLYCOL 3350 17 GM/Dose PACKET PO SCH (09:25)
[2018-03-01] MEDS: Morphine 4 mg/ml ISec IVP PRN (09:26)
[2018-03-01] MEDS ORDERED: POLYETHYLENE GLYCOL 3350 17 GM/Dose PACKET PO PRN (10:26)
--- NOTE | 2018-03-01 14:38 | PN ---
DATE: 03/01/2018 SUBJECTIVE: The patient is in bed, in no acute distress, nontoxic. PHYSICAL EXAMINATION: VITAL SIGNS: On exam, temperature is 98, blood pressure is 130/70, respiratory of 18. HEENT: Examination of HEENT is unremarkable. NECK: Supple. LUNGS: Have decreased breath sounds. HEART: Normal S1, S2. ABDOMEN: Soft, nontender. LABORATORY DATA: Laboratory examination reveals a white count of 8.9, hemoglobin of 9 and the platelets are 599. BUN of 13, creatinine of 0.9, procalcitonin 0.52 and urinalysis is noted and serology is negative. Microbiology is noted and review of orders reveals the patient to be off of antibiotics. ASSESSMENT AND PLAN: A 62-year-old male status post fevers systemic inflammatory response syndrome, right proximal femur fracture, status post reduction and internal fixation. Postprocedure day #10. Currently, off of antibiotics, afebrile. We will follow closely with you. Brian Ndiaye MD
[2018-03-02 07:06] LABS: BLOOD UREA NITROGEN 13 mg/dL (7-21); CALCIUM 9.2 mg/dL (8.4-10.5); GFR NON-AFRICAN AMERICAN > 60
[2018-03-02 07:09] LABS: BASO # 0.02 K/mm3 (0.0-2.0); BASO % 0.2 % (0.0-3.0); EOS # 0.7 (0.0-0.7); EOS % 8.7 % (1.5-5.0); GRAN # 5.05 (1.4-6.5); HEMOGLOBIN 10.4 g/dL (14.0-18.0); LYMPH # 1.9 (1.2-3.4); MEAN CELL VOLUME 86.5 fl (80.0-105.0); MEAN CORPUSCULAR HEMOGLOBIN 27.5 pg (25.0-35.0); MEAN CORPUSCULAR HGB CONC 31.8 g/dl (31.0-37.0); MEAN PLATELET VOLUME 8.9 fl (7.0-11.0); MONO # 0.7 (0.1-0.6); MONO % 8.1 % (1.0-6.0); RBC 3.78 10^6/uL (3.5-6.1); WHITE BLOOD COUNT 8.4 10^3/uL (4.5-11.0)
[2018-03-02] MEDS: Insulin Lispro (humaLOG) MEDIUM Coverage SC SCH ×4 (08:12→22:00)
[2018-03-02] MEDS: Pantoprazole 40 mg EC Tab PO SCH (08:29)
[2018-03-02] MEDS: Enoxaparin 40 mg Syringe SC SCH (09:21)
[2018-03-02] MEDS ORDERED: Sod Polystyrene Sulf 15 gm/60 ml Susp PO STA (09:23)
[2018-03-02 11:55] LABS: BLOOD UREA NITROGEN 14 mg/dL (7-21); CALCIUM 9.3 mg/dL (8.4-10.5); GFR NON-AFRICAN AMERICAN > 60
--- NOTE | 2018-03-02 12:16 | CP.PCM.PN ---
Subjective - Date & Time of Evaluation Date of Evaluation: 03/02/18 Time of Evaluation: 08:40 - Subjective Subjective: Patient is comfortable in bed, no fevers, right leg pain is improving, no diarrhea, no nausea. Objective - Vital Signs/Intake and Output Vital Signs (last 24 hours): Temp Pulse Resp BP Pulse Ox 97.9 F 101 H 18 126/84 99 03/01/18 14:00 03/01/18 14:00 03/01/18 14:00 03/01/18 14:00 03/01/18 14:00 Intake and Output: 03/02/18 03/02/18 06:59 18:59 Intake Total 1280 Output Total 800 Balance 480 - Medications Medications: Current Medications Acetaminophen (Tylenol 325mg Tab) 650 mg PO Q6H PRN PRN Reason: Fever >100.4 F Last Admin: 02/23/18 09:36 Dose: 650 mg Dextrose (Dextrose 50% Inj) 0 ml IV STAT PRN; Protocol PRN Reason: Hypoglycemia Protocol Docusate Sodium (Colace) 100 mg PO TID PRN PRN Reason: Constipation Enoxaparin Sodium (Lovenox) 40 mg SC DAILY [facility]; Protocol Last Admin: 03/01/18 09:25 Dose: 40 mg Dextrose (Dextrose 5% In Water 1000 Ml) 1,000 mls @ 0 mls/hr IV .Q0M PRN; Protocol PRN Reason: Hypoglycemia Protocol Ibuprofen (Motrin Tab) 600 mg PO Q6H PRN PRN Reason: Fever >100.4 F Last Admin: 02/23/18 10:32 Dose: 600 mg Insulin Human Lispro (Humalog Med) 0 units SC ACHS [facility]; Protocol Last Admin: 03/02/18 08:12 Dose: Not Given Morphine Sulfate (Morphine) 4 mg IVP Q8H PRN PRN Reason: Pain, severe (8-10) Last Admin: 03/01/18 09:26 Dose: 4 mg Ondansetron HCl (Zofran Inj) 4 mg IVP Q4H PRN PRN Reason: Nausea/Vomiting Oxycodone HCl (Oxycontin Extended Release Tab) 20 mg PO Q12 PRN PRN Reason: Pain, severe (8-10) Pantoprazole Sodium (Protonix Ec Tab) 40 mg PO ACB [facility] Last Admin: 03/02/18 08:29 Dose: 40 mg Polyethylene Glycol (Miralax) 17 gm PO BID PRN PRN Reason: Constipation - Labs Labs: 03/02/18 06:20 03/02/18 06:20 PT 11.5 SECONDS (9.4-12.5) 02/17/18 10:15 INR 1.00 02/17/18 10:15 APTT 25.4 Seconds (25.1-36.5) 02/17/18 10:15 - Constitutional Appears: Chronically Ill - Head Exam Head Exam: NORMAL INSPECTION - Respiratory Exam Respiratory Exam: Decreased Breath Sounds - Cardiovascular Exam Cardiovascular Exam: +S1, +S2 - GI/Abdominal Exam GI & Abdominal Exam: Soft. absent: Tenderness - Extremities Exam Additional comments: right leg with dressings in place Assessment and Plan - Assessment and Plan (Free Text) Plan: Assessment Post-op fever with systemic inflammatory response syndrome, no source of infection identified and has resolved right proximal femoral comminuted fracture S/P ORIF Plan will continue to monitor clinically off antibiotics since he is at risk for nosocomial infections
--- NOTE | 2018-03-02 13:33 | CARD ---
APPROVED REPORT Date of service: 03/02/2018 EKG Measurement Heart [id number] <Conclusion> Normal sinus rhythm Voltage criteria for left ventricular hypertrophy Abnormal ECG
--- NOTE | 2018-03-02 13:47 | CP.PCM.PN ---
<Dashawn Bergeron - Last Filed: 03/02/18 13:40> Subjective - Date & Time of Evaluation Date of Evaluation: 03/02/18 Time of Evaluation: 07:30 - Subjective Subjective: Dashawn Bergeron PGY-1 Progress Note Patient seen and evaluated at bedside. No acute events reported overnight. Patient denies chest pain, shortness of breath, abdominal pain, headaches, dizziness, blurry vision. Patient ambulating more over the weekend. Objective - Vital Signs/Intake and Output Vital Signs (last 24 hours): Temp Pulse Resp BP Pulse Ox 98 F 89 20 142/80 99 03/02/18 06:00 03/02/18 06:00 03/02/18 06:00 03/02/18 06:00 03/02/18 06:00 Intake and Output: 03/02/18 03/02/18 06:59 18:59 Intake Total 1280 Output Total 800 Balance 480 - Medications Medications: Current Medications Acetaminophen (Tylenol 325mg Tab) 650 mg PO Q6H PRN PRN Reason: Fever >100.4 F Last Admin: 02/23/18 09:36 Dose: 650 mg Dextrose (Dextrose 50% Inj) 0 ml IV STAT PRN; Protocol PRN Reason: Hypoglycemia Protocol Docusate Sodium (Colace) 100 mg PO TID PRN PRN Reason: Constipation Enoxaparin Sodium (Lovenox) 40 mg SC DAILY [facility]; Protocol Last Admin: 03/02/18 09:21 Dose: 40 mg Dextrose (Dextrose 5% In Water 1000 Ml) 1,000 mls @ 0 mls/hr IV .Q0M PRN; Protocol PRN Reason: Hypoglycemia Protocol Insulin Human Lispro (Humalog Med) 0 units SC ACHS [facility]; Protocol Last Admin: 03/02/18 12:18 Dose: 3 unit Morphine Sulfate (Morphine) 4 mg IVP Q8H PRN PRN Reason: Pain, severe (8-10) Last Admin: 03/01/18 09:26 Dose: 4 mg Ondansetron HCl (Zofran Inj) 4 mg IVP Q4H PRN PRN Reason: Nausea/Vomiting Oxycodone HCl (Oxycontin Extended Release Tab) 20 mg PO Q12 PRN PRN Reason: Pain, severe (8-10) Pantoprazole Sodium (Protonix Ec Tab) 40 mg PO ACB [facility] Last Admin: 03/02/18 08:29 Dose: 40 mg Polyethylene Glycol (Miralax) 17 gm PO BID PRN PRN Reason: Constipation - Labs Labs: 03/02/18 06:20 03/02/18 11:30 PT 11.5 SECONDS (9.4-12.5) 02/17/18 10:15 INR 1.00 02/17/18 10:15 APTT 25.4 Seconds (25.1-36.5) 02/17/18 10:15 - Additional Findings Additional findings: - Constitutional Appears: Non-toxic, No Acute Distress - Head Exam Head Exam: ATRAUMATIC, NORMAL INSPECTION, NORMOCEPHALIC - Eye Exam Eye Exam: EOMI, Normal appearance - ENT Exam ENT Exam: Mucous Membranes Moist, Normal Exam - Neck Exam Neck Exam: Full ROM, Normal Inspection - Respiratory Exam Respiratory Exam: Clear to Ausculation Bilateral, NORMAL BREATHING PATTERN - Cardiovascular Exam Cardiovascular Exam: RRR, +S1, +S2 - GI/Abdominal Exam GI & Abdominal Exam: Soft, Normal Bowel Sounds - Extremities Exam Extremities Exam: Normal Capillary Refill. absent: Calf Tenderness, Joint S welling Additional comments: Right Lower Ext is s/p ORIF of the proximal femoral shaft. No signs of hematoma noted. Improved ROM of lower extremities bilaterally. Distal pulses are intact. - Back Exam Back Exam: NORMAL INSPECTION - Neurological Exam Neurological Exam: Alert, Awake - Psychiatric Exam Psychiatric exam: Normal Affect, Normal Mood - Skin Skin Exam: Dry, Intact, Normal Color, Warm Assessment and Plan - Assessment and Plan (Free Text) Assessment: 62 yo M with no pmhx who presented with right leg pain s/p fall from a rig. Found to have a comminuted displaced fracture of the proximal shaft of the femur with separation of the lesser trochanter. POD 5 s/p R ORIF procedure. Currently being monitored for post-op fever with systemic inflammatory response syndrome, source to be determined. No further fevers, final blood and urine cxs negative. Off antibiotics and pending insurance coverage for [facility]. Plan: s/p R ORIF procedure -c/w incentive spirometer -Imaging - XR R femur: comminuted displaced fracture of the proximal shaft of the femur with separation of the lesser trochanter - CT hip: acute common communited fracture of proximal right femur. Edematous changes primarily within the adductor musculature. Repeat XR R femur: no complications, intramedullary shashank in place. -Ortho (Dr. Kat) recs appreciated -s/p 2 unit pRBC tranfusion (02/21) -oxycodone 20 mg PO q12 Post-op fever with systemic inflammatory response syndrome, source to be de termined. - Tmax 103.2 (02/20), last fever 02/21 of 100.9 - currently afebrile, continue to monitor for fevers - CXR: no active disease - UA: negative - Bcx, Ucx negative - Tylenol 650 mg q6 prn ID 02/[address] Loza: d/c Vancomycin and Zosyn since blood, urine cx have been negative Hyperkalemia 5.4 15 gm Kayexalate given Repeat BMp 4 hours later shows resolution at 4.5 Continue to monitor in AM lab Reactive Thrombocytosis trending upward, 639 today continue to monitor DM -A1C: 7.2 -ISS medium -accuchecks, hypoglycemic protocol Constipation - Miralax BID PRN HTN 2/2 pain - improved - normotensive, continue to monitor PPx, Diet, Disposition - DVT: lovenox, scds - GI: protonix - Diet: HHD - PT: [facility] Disposition: SW: pending insurance coverage from [employer]. Request for auth and pertinent information faxed to [employer]. Met with patient and son at bedside. Referred to insurance dept again as patient has new information. Patient seen, case reviewed, and plan approved by Dr. Monroy. Dashawn Bergeron, PGY-1 <Fortino Monroy - Last Filed: 03/02/18 15:22> Objective - Vital Signs/Intake and Output Vital Signs (last 24 hours): Temp Pulse Resp BP Pulse Ox 97.3 F L 95 H 18 122/79 97 03/02/18 14:00 03/02/18 14:00 03/02/18 14:00 03/02/18 14:00 03/02/18 14:00 Intake and Output: 03/02/18 03/02/18 06:59 18:59 Intake Total 1280 Output Total 800 Balance 480 - Medications Medications: Current Medications Acetaminophen (Tylenol 325mg Tab) 650 mg PO Q6H PRN PRN Reason: Fever >100.4 F Last Admin: 02/23/18 09:36 Dose: 650 mg Dextrose (Dextrose 50% Inj) 0 ml IV STAT PRN; Protocol PRN Reason: Hypoglycemia Protocol Docusate Sodium (Colace) 100 mg PO TID PRN PRN Reason: Constipation Enoxaparin Sodium (Lovenox) 40 mg SC DAILY [facility]; Protocol Last Admin: 03/02/18 09:21 Dose: 40 mg Dextrose (Dextrose 5% In Water 1000 Ml) 1,000 mls @ 0 mls/hr IV .Q0M PRN; Protocol PRN Reason: Hypoglycemia Protocol Insulin Human Lispro (Humalog Med) 0 units SC ACHS [facility]; Protocol Last Admin: 03/02/18 12:18 Dose: 3 unit Morphine Sulfate (Morphine) 4 mg IVP Q8H PRN PRN Reason: Pain, severe (8-10) Last Admin: 03/01/18 09:26 Dose: 4 mg Ondansetron HCl (Zofran Inj) 4 mg IVP Q4H PRN PRN Reason: Nausea/Vomiting Oxycodone HCl (Oxycontin Extended Release Tab) 20 mg PO Q12 PRN PRN Reason: Pain, severe (8-10) Pantoprazole Sodium (Protonix Ec Tab) 40 mg PO ACB [facility] Last Admin: 03/02/18 08:29 Dose: 40 mg Polyethylene Glycol (Miralax) 17 gm PO BID PRN PRN Reason: Constipation - Labs Labs: 03/02/18 06:20 03/02/18 11:30 PT 11.5 SECONDS (9.4-12.5) 02/17/18 10:15 INR 1.00 02/17/18 10:15 APTT 25.4 Seconds (25.1-36.5) 02/17/18 10:15 Attending/Attestation - Attestation I have personally seen and examined this patient.: Yes I have fully participated in the care of the patient.: Yes I have reviewed all pertinent clinical information, including history, physical exam and plan: Yes Notes (Text): 03/02/18 15:19 62 year old male with no significant past medical history was admitted with fall, found to have comminuted displaced fracture of the proximal shaft of the femur with separation of the lesser trochanter, he is s/p ORIF POD #13 Post-op he had fever and was started on broad spectum antibiotics. However workup has been negative and antibiotics were discontinued. He was also found to have postop anemia which improved after PRBC transfusion. Mild Hyperkalemia with out EKG changes is resolved, we will discontinue NSAID Thrombocytosis is reactive, we will monitor. Currently he is awaiting rehab placement; pending insurance from worker's compensation.
--- NOTE | 2018-03-02 14:01 | CP.PCM.PN ---
Subjective - Date & Time of Evaluation Date of Evaluation: 03/02/18 Time of Evaluation: 13:59 - Subjective Subjective: Patient seen and examined at bedside comfortable. Pain is much improved since last week. Still in house due to insurance coverage issues to transfer to [facility]. Objective - Vital Signs/Intake and Output Vital Signs (last 24 hours): Temp Pulse Resp BP Pulse Ox 98 F 89 20 142/80 99 03/02/18 06:00 03/02/18 06:00 03/02/18 06:00 03/02/18 06:00 03/02/18 06:00 Intake and Output: 03/02/18 03/02/18 06:59 18:59 Intake Total 1280 Output Total 800 Balance 480 - Medications Medications: Current Medications Acetaminophen (Tylenol 325mg Tab) 650 mg PO Q6H PRN PRN Reason: Fever >100.4 F Last Admin: 02/23/18 09:36 Dose: 650 mg Dextrose (Dextrose 50% Inj) 0 ml IV STAT PRN; Protocol PRN Reason: Hypoglycemia Protocol Docusate Sodium (Colace) 100 mg PO TID PRN PRN Reason: Constipation Enoxaparin Sodium (Lovenox) 40 mg SC DAILY [facility]; Protocol Last Admin: 03/02/18 09:21 Dose: 40 mg Dextrose (Dextrose 5% In Water 1000 Ml) 1,000 mls @ 0 mls/hr IV .Q0M PRN; Protocol PRN Reason: Hypoglycemia Protocol Insulin Human Lispro (Humalog Med) 0 units SC ACHS [facility]; Protocol Last Admin: 03/02/18 12:18 Dose: 3 unit Morphine Sulfate (Morphine) 4 mg IVP Q8H PRN PRN Reason: Pain, severe (8-10) Last Admin: 03/01/18 09:26 Dose: 4 mg Ondansetron HCl (Zofran Inj) 4 mg IVP Q4H PRN PRN Reason: Nausea/Vomiting Oxycodone HCl (Oxycontin Extended Release Tab) 20 mg PO Q12 PRN PRN Reason: Pain, severe (8-10) Pantoprazole Sodium (Protonix Ec Tab) 40 mg PO ACB [facility] Last Admin: 03/02/18 08:29 Dose: 40 mg Polyethylene Glycol (Miralax) 17 gm PO BID PRN PRN Reason: Constipation - Labs Labs: 03/02/18 06:20 03/02/18 11:30 PT 11.5 SECONDS (9.4-12.5) 02/17/18 10:15 INR 1.00 02/17/18 10:15 APTT 25.4 Seconds (25.1-36.5) 02/17/18 10:15 - Extremities Exam Additional comments: RLE: mild swelling diffuse about thigh Dressings Dry and intact Incisions CDI with ashleigh sensation intact SP/DP/TN motor intact EHL/FHL/TA/G pedal pulses intact calves soft NT b/l Assessment and Plan (1) Femur fracture, right Assessment & Plan: POD#12 s/p R subtroch fx ORIF with long IM nail -Dressings removed, can leave to room air -will remove ashleigh if still in house this week -PT/OT WBAT -DVT ppx, can d/w with ASA 325 BID x 3-6 weeks -f/u in office this week -above d/w Dr. Kat in agreement Status: Acute
[2018-03-03 06:55] LABS: BLOOD UREA NITROGEN 13 mg/dL (7-21); CALCIUM 8.8 mg/dL (8.4-10.5); GFR NON-AFRICAN AMERICAN > 60
[2018-03-03 07:15] LABS: BASO # 0.03 K/mm3 (0.0-2.0); BASO % 0.4 % (0.0-3.0); EOS # 0.6 (0.0-0.7); EOS % 8.3 % (1.5-5.0); GRAN # 4.34 (1.4-6.5); GRAN % 57.2 % (50.0-68.0); HEMOGLOBIN 10.5 g/dL (14.0-18.0); LYMPH # 2.1 (1.2-3.4); LYMPH % 27.1 % (22.0-35.0); MEAN CELL VOLUME 86.2 fl (80.0-105.0); MEAN CORPUSCULAR HEMOGLOBIN 27.4 pg (25.0-35.0); MEAN CORPUSCULAR HGB CONC 31.8 g/dl (31.0-37.0); MEAN PLATELET VOLUME 8.8 fl (7.0-11.0); MONO # 0.5 (0.1-0.6); RBC 3.83 10^6/uL (3.5-6.1); RED CELL DISTRIBUTION WIDTH 14.1 % (11.5-14.5); WHITE BLOOD COUNT 7.6 10^3/uL (4.5-11.0)
[2018-03-03] MEDS: Insulin Lispro (humaLOG) MEDIUM Coverage SC SCH ×3 (08:00→17:12)
[2018-03-03] MEDS: Pantoprazole 40 mg EC Tab PO SCH (08:00)
[2018-03-03] MEDS: Enoxaparin 40 mg Syringe SC SCH (09:36)
--- NOTE | 2018-03-03 15:02 | CP.PCM.PN ---
<Dashawn Bergeron - Last Filed: 03/03/18 14:56> Subjective - Date & Time of Evaluation Date of Evaluation: 03/03/18 Time of Evaluation: 08:00 - Subjective Subjective: Dashawn Bergeron PGY-1 Progress Note Patient seen and evaluated at bedside. No acute events reported overnight. Patient denies chest pain, shortness of breath, abdominal pain, headaches, dizziness, blurry vision. Patient ambulating with greater frequency. Pending rehab and insurance resolution. Objective - Vital Signs/Intake and Output Vital Signs (last 24 hours): Temp Pulse Resp BP Pulse Ox 98.6 F 89 18 122/78 98 03/03/18 06:00 03/03/18 06:00 03/03/18 06:00 03/03/18 06:00 03/03/18 06:00 Intake and Output: 03/03/18 03/03/18 06:59 18:59 Intake Total 620 Output Total 900 Balance -280 - Medications Medications: Current Medications Acetaminophen (Tylenol 325mg Tab) 650 mg PO Q6H PRN PRN Reason: Fever >100.4 F Last Admin: 02/23/18 09:36 Dose: 650 mg Dextrose (Dextrose 50% Inj) 0 ml IV STAT PRN; Protocol PRN Reason: Hypoglycemia Protocol Docusate Sodium (Colace) 100 mg PO TID PRN PRN Reason: Constipation Enoxaparin Sodium (Lovenox) 40 mg SC DAILY [facility]; Protocol Last Admin: 03/03/18 09:36 Dose: 40 mg Dextrose (Dextrose 5% In Water 1000 Ml) 1,000 mls @ 0 mls/hr IV .Q0M PRN; Protocol PRN Reason: Hypoglycemia Protocol Insulin Human Lispro (Humalog Med) 0 units SC ACHS [facility]; Protocol Last Admin: 03/03/18 12:00 Dose: 1 unit Morphine Sulfate (Morphine) 4 mg IVP Q8H PRN PRN Reason: Pain, severe (8-10) Last Admin: 03/01/18 09:26 Dose: 4 mg Ondansetron HCl (Zofran Inj) 4 mg IVP Q4H PRN PRN Reason: Nausea/Vomiting Oxycodone HCl (Oxycontin Extended Release Tab) 20 mg PO Q12 PRN PRN Reason: Pain, severe (8-10) Pantoprazole Sodium (Protonix Ec Tab) 40 mg PO ACB [facility] Last Admin: 03/03/18 08:00 Dose: 40 mg Polyethylene Glycol (Miralax) 17 gm PO BID PRN PRN Reason: Constipation - Labs Labs: 03/03/18 06:15 03/03/18 06:15 PT 11.5 SECONDS (9.4-12.5) 02/17/18 10:15 INR 1.00 02/17/18 10:15 APTT 25.4 Seconds (25.1-36.5) 02/17/18 10:15 - Additional Findings Additional findings: - Constitutional Appears: Non-toxic, No Acute Distress - Head Exam Head Exam: ATRAUMATIC, NORMAL INSPECTION, NORMOCEPHALIC - Eye Exam Eye Exam: EOMI, Normal appearance - ENT Exam ENT Exam: Mucous Membranes Moist, Normal Exam - Neck Exam Neck Exam: Full ROM, Normal Inspection - Respiratory Exam Respiratory Exam: Clear to Ausculation Bilateral, NORMAL BREATHING PATTERN - Cardiovascular Exam Cardiovascular Exam: RRR, +S1, +S2 - GI/Abdominal Exam GI & Abdominal Exam: Soft, Normal Bowel Sounds - Extremities Exam Extremities Exam: Normal Capillary Refill. absent: Calf Tenderness, Joint Swelling Additional comments: Right Lower Ext is s/p ORIF of the proximal femoral shaft. No signs of hematoma noted. Improved ROM of lower extremities bilaterally. Distal pulses are intact. - Back Exam Back Exam: NORMAL INSPECTION - Neurological Exam Neurological Exam: Alert, Awake - Psychiatric Exam Psychiatric exam: Normal Affect, Normal Mood - Skin Skin Exam: Dry, Intact, Normal Color, Warm Assessment and Plan - Assessment and Plan (Free Text) Assessment: 62 yo M with no pmhx who presented with right leg pain s/p fall from a rig. Found to have a comminuted displaced fracture of the proximal shaft of the femur with separation of the lesser trochanter. POD 14 s/p R ORIF procedure. No further fevers, final blood and urine cxs negative. Off antibiotics and pending insurance coverage for rehab vs home with PT. Spoke with patient and friend at length with platform architect present as well as case management social worker and major case detective to work out insurance issues. Plan: s/p R ORIF procedure -c/w incentive spirometer -Imaging - XR R femur: comminuted displaced fracture of the proximal shaft of the femur with separation of the lesser trochanter - CT hip: acute common communited fracture of proximal right femur. Edematous changes primarily within the adductor musculature. Repeat XR R femur: no complications, intramedullary shashank in place. -Ortho (Dr. Kat) recs appreciated -s/p 2 unit pRBC tranfusion (02/21) -oxycodone 20 mg PO q12 Post-op fever with systemic inflammatory response syndrome, source to be determined. - Tmax 103.2 (02/20), last fever 02/21 of 100.9 - currently afebrile, continue to monitor for fevers - CXR: no active disease - UA: negative - Bcx, Ucx negative - Tylenol 650 mg q6 prn ID 02/[address] Loza: d/c Vancomycin and Zosyn since blood, urine cx have been negative Hyperkalemia- resolved 5.4 15 gm Kayexalate given Repeat BMp 4 hours later shows resolution at 4.5 Continue to monitor in AM lab Reactive Thrombocytosis likely 2/2 blood loss and recent surgery 635 today continue to monitor DM -A1C: 7.2 -ISS medium -accuchecks, hypoglycemic protocol Constipation - Miralax BID PRN HTN 2/2 pain - improved - normotensive, continue to monitor PPx, Diet, Disposition - DVT: lovenox, scds - GI: protonix - Diet: HHD - PT: [facility] Disposition: SW: Facility will not accept patient until Workmans comp has denied, and although [employer] has authorized that is not a guarrantee of payment to facility. [employer] Cashier, casemanager and physicians met with patient , Patient insisting that company is responsible, Company has not provided information regarding workmans comp to [employer] Insurance dept, Company advising patient that [employer] has not called them. [employer] Cashier contacted [employer] however they cannot do anything other than provide the auth. Patient seen, case reviewed, and plan approved by Dr. Monroy. Dashawn Bergeron, PGY-1 <Fortino Monroy - Last Filed: 03/06/18 08:17> Objective - Vital Signs/Intake and Output Vital Signs (last 24 hours): Temp Pulse Resp BP Pulse Ox 98 F 96 H 18 126/79 99 03/05/18 14:00 03/05/18 14:00 03/05/18 14:00 03/05/18 14:00 03/05/18 14:00 - Labs Labs: 03/03/18 06:15 03/03/18 06:15 PT 11.5 SECONDS (9.4-12.5) 02/17/18 10:15 INR 1.00 02/17/18 10:15 APTT 25.4 Seconds (25.1-36.5) 02/17/18 10:15 Attending/Attestation - Attestation I have personally seen and examined this patient.: Yes I have fully participated in the care of the patient.: Yes I have reviewed all pertinent clinical information, including history, physical exam and plan: Yes Notes (Text): 03/06/18 08:17 Medical record note made by the resident after discussion with my direction and input after the patient was personally seen and examined by me. I have reviewed the chart and agree that the record accurately reflects by personal performance of the history, physical exam, data review, and medical decision-making, in the course for the patient. I have also personally directed the plan of care.
--- NOTE | 2018-03-03 23:47 | PN ---
DATE: 03/03/2018 SUBJECTIVE: The patient is seen in bed, in no acute distress, and nontoxic. PHYSICAL EXAMINATION: VITAL SIGNS: Temperature is 98, blood pressure is 120/70, and respiratory rate of 16. HEENT: Unremarkable. NECK: Supple. LUNGS: Have decreased breath sounds. HEART: Normal S1 and S2. ABDOMEN: Soft. LABORATORY DATA: Reviewed. ASSESSMENT AND PLAN: This is a 62-year-old with systemic inflammatory response syndrome and status post proximal femur fracture, status post open reduction and internal fixation, currently off of antibiotics. The patient is at risk for developing nosocomial infection. Brian Ndiaye MD
[2018-03-04] MEDS: Pantoprazole 40 mg EC Tab PO SCH (09:10)
[2018-03-04] MEDS: Enoxaparin 40 mg Syringe SC SCH (09:10)
[2018-03-04] MEDS: Insulin Lispro (humaLOG) MEDIUM Coverage SC SCH ×3 (09:11→20:17)
[2018-03-04] MEDS: oxyCODONE 20 mg ER Tab (oxyCONTIN) PO PRN (11:43)
--- NOTE | 2018-03-04 14:50 | CP.PCM.DIS ---
Provider - Provider Date of Admission: 02/17/18 11:10 Attending physician: Fortino Monroy MD Primary care physician: None Consults: Scott - Dr. Shey MARIA - Dr. Gavin Diagnosis - Discharge Diagnosis (1) Femur fracture, right Status: Acute Hospital Course - Lab Results Lab Results: Micro Results 02/20/18 00:22 Blood Blood Culture - Final NO GROWTH AFTER 5 DAYS 02/20/18 00:22 Blood Gram Stain - Final TEST NOT PERFORMED 02/19/18 14:00 Blood Blood Culture - Final NO GROWTH AFTER 5 DAYS 02/19/18 14:00 Blood Gram Stain - Final TEST NOT PERFORMED 02/19/18 13:45 Blood Blood Culture - Final NO GROWTH AFTER 5 DAYS 02/19/18 13:45 Blood Gram Stain - Final TEST NOT PERFORMED 02/20/18 13:00 Urine Urine Culture - Final No Growth (<1,000 CFU/ML) 02/19/18 21:43 Urine,Clean Catch Urine Culture - Final No Growth (<1,000 CFU/ML) Most Recent Lab Values WBC 7.6 10^3/uL (4.5-11.0) 03/03/18 06:15 RBC 3.83 10^6/uL (3.5-6.1) 03/03/18 06:15 Hgb 10.5 g/dL (14.0-18.0) L 03/03/18 06:15 Hct 33.0 % (42.0-52.0) L 03/03/18 06:15 MCV 86.2 fl (80.0-105.0) 03/03/18 06:15 MCH 27.4 pg (25.0-35.0) 03/03/18 06:15 MCHC 31.8 g/dl (31.0-37.0) 03/03/18 06:15 RDW 14.1 % (11.5-14.5) 03/03/18 06:15 Plt Count 635 10^3/uL (120.0-450.0) H 03/03/18 06:15 MPV 8.8 fl (7.0-11.0) 03/03/18 06:15 Gran % 57.2 % (50.0-68.0) 03/03/18 06:15 Lymph % (Auto) 27.1 % (22.0-35.0) 03/03/18 06:15 [place] % (Auto) 7.0 % (1.0-6.0) H 03/03/18 06:15 Eos % (Auto) 8.3 % (1.5-5.0) H 03/03/18 06:15 Baso % (Auto) 0.4 % (0.0-3.0) 03/03/18 06:15 Gran # 4.34 (1.4-6.5) 03/03/18 06:15 Lymph # (Auto) 2.1 (1.2-3.4) 03/03/18 06:15 [place] # (Auto) 0.5 (0.1-0.6) 03/03/18 06:15 Eos # (Auto) 0.6 (0.0-0.7) 03/03/18 06:15 Baso # (Auto) 0.03 K/mm3 (0.0-2.0) 03/03/18 06:15 PT 11.5 SECONDS (9.4-12.5) 02/17/18 10:15 INR 1.00 02/17/18 10:15 APTT 25.4 Seconds (25.1-36.5) 02/17/18 10:15 Sodium 137 mmol/L (132-148) 03/03/18 06:15 Potassium 4.4 mmol/L (3.6-5.0) 03/03/18 06:15 Chloride 105 mmol/L (98-107) 03/03/18 06:15 Carbon Dioxide 27 mmol/L (21-33) 03/03/18 06:15 Anion Gap 10 (10-20) 03/03/18 06:15 BUN 13 mg/dL (7-21) 03/03/18 06:15 Creatinine 0.9 mg/dl (0.8-1.5) 03/03/18 06:15 Est GFR ( Amer) > 60 03/03/18 06:15 Est GFR (Non-Af Amer) > 60 03/03/18 06:15 POC Glucose (mg/dL) 215 mg/dL (65-110) H 03/04/18 11:21 Random Glucose 170 mg/dL (70-110) H 03/03/18 06:15 Hemoglobin A1c 7.2 % (4.2-6.5) H 02/20/18 15:29 Calcium 8.8 mg/dL (8.4-10.5) 03/03/18 06:15 Magnesium 1.8 mg/dL (1.7-2.2) 02/17/18 10:15 Total Bilirubin 0.9 mg/dL (0.2-1.3) 02/27/18 07:00 AST 57 U/L (17-59) 02/27/18 07:00 ALT 79 U/L (7-56) H 02/27/18 07:00 Alkaline Phosphatase 79 U/L (38-126) 02/27/18 07:00 Lactate Dehydrogenase 480 U/L (333-699) 02/17/18 10:15 Total Creatine Kinase 117 U/L (35-230) 02/17/18 10:15 Troponin I < 0.01 ng/mL 02/17/18 10:15 Total Protein 6.6 g/dL (5.8-8.3) 02/27/18 07:00 Albumin 3.3 g/dL (3.0-4.8) 02/27/18 07:00 Globulin 3.3 gm/dL 02/27/18 07:00 Albumin/Globulin Ratio 1.0 (1.1-1.8) L 02/27/18 07:00 Procalcitonin 0.52 NG/ML (0.19-0.49) H 02/21/18 06:00 Urine Color Yellow (YELLOW) 02/20/18 08:06 Urine Appearance Sl cloudy (CLEAR) 02/20/18 08:06 Urine pH 6.5 (4.7-8.0) 02/20/18 08:06 Ur Specific Colp 1.020 (1.005-1.035) 02/20/18 08:06 Urine Protein Trace mg/dL (<30 mg/dL) H 02/20/18 08:06 Urine Glucose (UA) 250 mg/dL (NEGATIVE) H 02/20/18 08:06 Urine Ketones 15 mg/dL (NEGATIVE) H 02/20/18 08:06 Urine Blood Small (NEGATIVE) H 02/20/18 08:06 Urine Nitrate Negative (NEGATIVE) 02/20/18 08:06 Urine Bilirubin Negative (NEGATIVE) 02/20/18 08:06 Urine Urobilinogen 1.0 E.U./dL (<1 E.U./dL) H 02/20/18 08:06 Ur Leukocyte Esterase Negative Delvin/uL (NEGATIVE) 02/20/18 08:06 Urine RBC Negative /hpf (0-2) 02/20/18 08:06 Urine WBC 1 - 3 /hpf (0-6) 02/20/18 08:06 Ur Epithelial Cells 0 - 2 /hpf (0-5) 02/20/18 08:06 Urine Bacteria None (NEG) 02/19/18 21:43 HIV 1&2 Ag/Ab, 4th Gen Nonreactive (Nonreactive) 02/24/18 19:19 Influenza Typ A,B (EIA) Negative for flu a/b (NEGATIVE) 02/21/18 20:00 Blood Type O POSITIVE 02/21/18 14:17 Blood Type Confirm O POSITIVE 02/17/18 10:25 Antibody Screen Negative 02/21/18 14:17 Crossmatch See Detail 02/21/18 14:17 BBK History Checked Patient has bt 02/21/18 14:17 Discharge Exam - Head Exam Head Exam: NORMAL INSPECTION - Additional Findings Additional findings: - Constitutional Appears: Non-toxic, No Acute Distress - Head Exam Head Exam: ATRAUMATIC, NORMAL INSPECTION, NORMOCEPHALIC - Eye Exam Eye Exam: EOMI, Normal appearance - ENT Exam ENT Exam: Mucous Membranes Moist, Normal Exam - Neck Exam Neck Exam: Full ROM, Normal Inspection - Respiratory Exam Respiratory Exam: Clear to Ausculation Bilateral, NORMAL BREATHING PATTERN - Cardiovascular Exam Cardiovascular Exam: RRR, +S1, +S2 - GI/Abdominal Exam GI & Abdominal Exam: Soft, Normal Bowel Sounds - Extremities Exam Extremities Exam: Normal Capillary Refill. absent: Calf Tenderness, Joint Swelling Additional comments: Right Lower Ext is s/p ORIF of the proximal femoral shaft. No signs of hematoma noted. [place] over incision. Incisions c/d/i. Improved ROM of lower extremities bilaterally. Distal pulses are intact. - Back Exam Back Exam: NORMAL INSPECTION - Neurological Exam Neurological Exam: Alert, Awake - Psychiatric Exam Psychiatric exam: Normal Affect, Normal Mood - Skin Skin Exam: Dry, Intact, Normal Color, Warm Discharge Plan - Discharge Medications Prescriptions: Aspirin 325 mg PO BID #42 tab Pantoprazole Sodium [Protonix] 40 mg PO DAILY #30 ect - Follow Up Plan Condition: FAIR Disposition: HOME/ ROUTINE Patient education suggested?: Yes Instructions: Femur Fracture (DC) Additional Instructions: Please follow up in Dr. Kat orthopedic office within 7-10 days of discharge. Per ortho, please continue Aspirin 325 mg twice a day for 3-6 weeks. Please follow up in [facility] within 1-2 weeks. Appt was made for 03/13 at 4 pm. Please arrive half an hour before with ID and insurance card info. Please continue with medications (Aspirin and Protonix) as prescribed. Please fill the prescription for a walker for stability [facility]. Should symptoms worsen or reoccur, please go to nearest emergency department. Referrals: Segundo Kat MD [Staff Provider] -
--- NOTE | 2018-03-04 15:17 | CP.PCM.PN ---
<Dashawn Bergeron - Last Filed: 03/04/18 15:50> Subjective - Date & Time of Evaluation Date of Evaluation: 03/04/18 Time of Evaluation: 08:00 - Subjective Subjective: Dashawn Bergeron PGY-1 Progress Note for Hospitalist Service Patient seen and evaluated at bedside. No acute events reported overnight. Patient denies chest pain, shortness of breath, abdominal pain, headaches, dizziness, blurry vision. Patient ambulating with greater frequency and ease. Pending insurance resolution. Objective - Vital Signs/Intake and Output Vital Signs (last 24 hours): Temp Pulse Resp BP Pulse Ox 98.4 F 103 H 20 127/82 97 03/04/18 14:00 03/04/18 14:00 03/04/18 14:00 03/04/18 14:00 03/04/18 14:00 Intake and Output: 03/04/18 03/04/18 06:59 18:59 Intake Total 600 Output Total 500 Balance 100 - Medications Medications: Current Medications Acetaminophen (Tylenol 325mg Tab) 650 mg PO Q6H PRN PRN Reason: Fever >100.4 F Last Admin: 02/23/18 09:36 Dose: 650 mg Dextrose (Dextrose 50% Inj) 0 ml IV STAT PRN; Protocol PRN Reason: Hypoglycemia Protocol Docusate Sodium (Colace) 100 mg PO TID PRN PRN Reason: Constipation Enoxaparin Sodium (Lovenox) 40 mg SC DAILY [facility]; Protocol Last Admin: 03/04/18 09:10 Dose: 40 mg Dextrose (Dextrose 5% In Water 1000 Ml) 1,000 mls @ 0 mls/hr IV .Q0M PRN; Protocol PRN Reason: Hypoglycemia Protocol Insulin Human Lispro (Humalog Med) [address] [facility]; Protocol Last Admin: 03/04/18 09:11 Dose: Not Given Ondansetron HCl (Zofran Inj) 4 mg IVP Q4H PRN PRN Reason: Nausea/Vomiting Oxycodone HCl (Oxycontin Extended Release Tab) 20 mg PO Q12 PRN PRN Reason: Pain, severe (8-10) Last Admin: 03/04/18 11:43 Dose: 20 mg Pantoprazole Sodium (Protonix Ec Tab) 40 mg PO ACB [facility] Last Admin: 11/28/18 09:10 Dose: 40 mg Polyethylene Glycol (Miralax) 17 gm PO BID PRN PRN Reason: Constipation - Labs Labs: 03/03/18 06:15 03/03/18 06:15 PT 11.5 SECONDS (9.4-12.5) 02/17/18 10:15 INR 1.00 02/17/18 10:15 APTT 25.4 Seconds (25.1-36.5) 02/17/18 10:15 - Additional Findings Additional findings: - Constitutional Appears: Non-toxic, No Acute Distress - Head Exam Head Exam: ATRAUMATIC, NORMAL INSPECTION, NORMOCEPHALIC - Eye Exam Eye Exam: EOMI, Normal appearance - ENT Exam ENT Exam: Mucous Membranes Moist, Normal Exam - Neck Exam Neck Exam: Full ROM, Normal Inspection - Respiratory Exam Respiratory Exam: Clear to Ausculation Bilateral, NORMAL BREATHING PATTERN - Cardiovascular Exam Cardiovascular Exam: RRR, +S1, +S2 - GI/Abdominal Exam GI & Abdominal Exam: Soft, Normal Bowel Sounds - Extremities Exam Extremities Exam: Normal Capillary Refill. absent: Calf Tenderness, Joint Swelling Additional comments: Right Lower Ext is s/p ORIF of the proximal femoral shaft. No signs of hematoma noted. Improved ROM of lower extremities bilaterally. Distal pulses are intact. [place] in place. incisions c/d/i along lateral R leg - Back Exam Back Exam: NORMAL INSPECTION - Neurological Exam Neurological Exam: Alert, Awake - Psychiatric Exam Psychiatric exam: Normal Affect, Normal Mood - Skin Skin Exam: Dry, Intact, Normal Color, Warm Assessment and Plan (1) Femur fracture, right Status: Acute - Assessment and Plan (Free Text) Assessment: 62 yo M with no pmhx who presented with right leg pain s/p fall from a rig. Found to have a comminuted displaced fracture of the proximal shaft of the femur with separation of the lesser trochanter. POD 14 s/p R ORIF procedure. No further fevers, final blood and urine cxs negative. Off antibiotics and pending insurance coverage for rehab vs home with PT. Spoke with patient and friend at length with molding line operator present as well as aids social worker and correctional case records supervisor to work out insurance issues. Pending rehab. Plan: s/p R ORIF procedure day 14 -c/w incentive spirometer -Imaging - XR R femur: comminuted displaced fracture of the proximal shaft of the femur with separation of the lesser trochanter - CT hip: acute common communited fracture of proximal right femur. Edematous changes primarily within the adductor musculature. Repeat XR R femur: no complications, intramedullary shashank in place. -Ortho (Dr. Kat) recs appreciated -s/p 2 unit pRBC tranfusion (02/21) -oxycodone 20 mg PO q12 - Ortho: will remove ashleigh if still in house this week Post-op fever with systemic inflammatory response syndrome, source to be determined - resolved - Tmax 103.2 (02/20), last fever 02/21 of 100.9 - currently afebrile, continue to monitor for fevers - CXR: no active disease - UA: negative - Bcx, Ucx negative - Tylenol 650 mg q6 prn - ID 02/[address] Loza: d/c Vancomycin and Zosyn since blood, urine cx have been negative Hyperkalemia- resolved 5.4 15 gm Kayexalate given Repeat BMP 4 hours later shows resolution at 4.5 Continue to monitor in AM lab Reactive Thrombocytosis likely 2/2 blood loss and recent surgery- stable 635 continue to monitor DM -A1C: 7.2 -ISS medium -accuchecks, hypoglycemic protocol Constipation - Miralax BID PRN HTN 2/2 pain - improved - normotensive, continue to monitor PPx, Diet, Disposition - DVT: lovenox, scds - GI: protonix - Diet: HHD - PT: Home w Services Disposition: CM: KIKI MAYA MD and the insurance verification team met with patient and family at bedside and discussed at [facility] patient case information status ( pending). 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 No accepting [facility] facilities at present time DCP and needs discussed extensively with patient and family who are A/O x3. Discussed physical therapy [facility] recommendation & the need to provide private insurance info Patient and family in agreement to going home with outpt physical therapy if NO [facility] accepting facility.. DCP remains the same: [facility]?? otherwise Home with outpt P.T. when medically clear Patient seen, case reviewed, and plan approved by Dr. Monroy. Dashawn Bergeron, PGY-1 <Fortino Monroy - Last Filed: 03/06/18 08:16> Objective - Vital Signs/Intake and Output Vital Signs (last 24 hours): Temp Pulse Resp BP Pulse Ox 98 F 96 H 18 126/79 99 03/05/18 14:00 03/05/18 14:00 03/05/18 14:00 03/05/18 14:00 03/05/18 14:00 - Labs Labs: 03/03/18 06:15 03/03/18 06:15 PT 11.5 SECONDS (9.4-12.5) 02/17/18 10:15 INR 1.00 02/17/18 10:15 APTT 25.4 Seconds (25.1-36.5) 02/17/18 10:15 Attending/Attestation - Attestation I have personally seen and examined this patient.: Yes I have fully participated in the care of the patient.: Yes I have reviewed all pertinent clinical information, including history, physical exam and plan: Yes Notes (Text): 03/06/18 08:16 Medical record note made by the resident after discussion with my direction and input after the patient was personally seen and examined by me. I have reviewed the chart and agree that the record accurately reflects by personal performance of the history, physical exam, data review, and medical decision-making, in the course for the patient. I have also personally directed the plan of care.
--- NOTE | 2018-03-04 16:24 | CP.PCM.PN ---
Subjective - Date & Time of Evaluation Date of Evaluation: 03/04/18 Time of Evaluation: 08:50 - Subjective Subjective: No fevers, not in distress. Objective - Vital Signs/Intake and Output Vital Signs (last 24 hours): Temp Pulse Resp BP Pulse Ox 98.2 F 89 20 144/87 100 03/04/18 06:00 03/04/18 06:00 03/04/18 06:00 03/04/18 06:00 03/04/18 06:00 Intake and Output: 03/04/18 03/04/18 06:59 18:59 Intake Total 600 Output Total 500 Balance 100 - Medications Medications: Current Medications Acetaminophen (Tylenol 325mg Tab) 650 mg PO Q6H PRN PRN Reason: Fever >100.4 F Last Admin: 02/23/18 09:36 Dose: 650 mg Dextrose (Dextrose 50% Inj) 0 ml IV STAT PRN; Protocol PRN Reason: Hypoglycemia Protocol Docusate Sodium (Colace) 100 mg PO TID PRN PRN Reason: Constipation Enoxaparin Sodium (Lovenox) 40 mg SC DAILY [facility]; Protocol Last Admin: 03/03/18 09:36 Dose: 40 mg Dextrose (Dextrose 5% In Water 1000 Ml) 1,000 mls @ 0 mls/hr IV .Q0M PRN; Protocol PRN Reason: Hypoglycemia Protocol Insulin Human Lispro (Humalog Med) 0 units SC ACHS [facility]; Protocol Last Admin: 03/03/18 17:12 Dose: 3 unit Ondansetron HCl (Zofran Inj) 4 mg IVP Q4H PRN PRN Reason: Nausea/Vomiting Oxycodone HCl (Oxycontin Extended Release Tab) 20 mg PO Q12 PRN PRN Reason: Pain, severe (8-10) Pantoprazole Sodium (Protonix Ec Tab) 40 mg PO ACB [facility] Last Admin: 03/03/18 08:00 Dose: 40 mg Polyethylene Glycol (Miralax) 17 gm PO BID PRN PRN Reason: Constipation - Labs Labs: 03/03/18 06:15 03/03/18 06:15 PT 11.5 SECONDS (9.4-12.5) 02/17/18 10:15 INR 1.00 02/17/18 10:15 APTT 25.4 Seconds (25.1-36.5) 02/17/18 10:15 - Constitutional Appears: Chronically Ill - Head Exam Head Exam: NORMAL INSPECTION - Respiratory Exam Respiratory Exam: Decreased Breath Sounds - Cardiovascular Exam Cardiovascular Exam: +S1, +S2 - GI/Abdominal Exam GI & Abdominal Exam: Soft. absent: Tenderness Assessment and Plan - Assessment and Plan (Free Text) Plan: Assessment Post-op fever with systemic inflammatory response syndrome, no source of infection identified and has resolved right proximal femoral comminuted fracture S/P ORIF Plan will continue to monitor clinically off antibiotics since he is at risk for hospital-acquired infections
[2018-03-05] MEDS: Insulin Lispro (humaLOG) MEDIUM Coverage SC SCH ×3 (07:41→17:27)
[2018-03-05] MEDS: Pantoprazole 40 mg EC Tab PO SCH (08:45)
[2018-03-05 08:46] VITALS: RESP 18
[2018-03-05] MEDS: Enoxaparin 40 mg Syringe SC SCH (09:29)
[2018-03-05] MEDS: oxyCODONE 20 mg ER Tab (oxyCONTIN) PO PRN (12:17)
--- NOTE | 2018-03-05 12:18 | PN ---
DATE: 03/05/2018 SUBJECTIVE: The patient is in bed, in no acute distress, nontoxic. PHYSICAL EXAMINATION VITAL SIGNS: Temperature is 98, blood pressure is 130/80 and respiratory rate of 18. HEENT: Unremarkable. NECK: Supple. LUNGS: Decreased breath sounds. HEART: Normal S1 and S2. ABDOMEN: Soft and nontender. LABORATORY DATA: Reviewed. MEDICATIONS: Review of orders reveals the patient to be off of antibiotics. ASSESSMENT AND PLAN: This is a 62-year-old male with postoperative fever with systemic inflammatory response syndrome. No evidence of infection. Currently off of antibiotic. Afebrile. The patient is with right proximal femur comminuted fracture and status post open reduction and internal fixation. The patient is at risk for developing nosocomial infections. Brian Ndiaye MD
[2018-03-05 14:37] VITALS: BP 126/79; PULSE 96; O2SAT 99
[2018-03-05 14:43] VITALS: TEMP 98
--- NOTE | 2018-03-05 15:41 | CP.PCM.DIS ---
<ElyssaNaidaDashawn - Last Filed: 03/05/18 15:55> Provider - Provider Date of Admission: 02/17/18 11:10 Attending physician: Fortino Monroy MD Primary care physician: None Consults: 02/17/18 13:10 Consult [Physician Consult] Stat Comment: Consulting Provider: Segundo Kat Consulting Physician: Segundo Kat Reason for Consult: R-femoral neck fx 02/20/18 16:50 Physician Consult Routine Comment: Consulting Provider: James Gavin Consulting Physician: James Gavin Reason for Consult: worsening fever s/p ORIF femoral fx 02/22/18 14:34 Diabetic Education Referral Routine Comment: Physician Instructions: Reason For Exam: New DM2 diagnosis, medication, nutrition counselin Time Spent in preparation of Discharge (in minutes): 40 Diagnosis - Discharge Diagnosis (1) Femur fracture, right Status: Acute Hospital Course - Lab Results Lab Results: Micro Results 02/20/18 00:22 Blood Blood Culture - Final NO GROWTH AFTER 5 DAYS 02/20/18 00:22 Blood Gram Stain - Final TEST NOT PERFORMED 02/19/18 14:00 Blood Blood Culture - Final NO GROWTH AFTER 5 DAYS 02/19/18 14:00 Blood Gram Stain - Final TEST NOT PERFORMED 02/19/18 13:45 Blood Blood Culture - Final NO GROWTH AFTER 5 DAYS 02/19/18 13:45 Blood Gram Stain - Final TEST NOT PERFORMED 02/20/18 13:00 Urine Urine Culture - Final No Growth (<1,000 CFU/ML) 02/19/18 21:43 Urine,Clean Catch Urine Culture - Final No Growth (<1,000 CFU/ML) Most Recent Lab Values WBC 7.6 10^3/uL (4.5-11.0) 03/03/18 06:15 RBC 3.83 10^6/uL (3.5-6.1) 03/03/18 06:15 Hgb 10.5 g/dL (14.0-18.0) L 03/03/18 06:15 Hct 33.0 % (42.0-52.0) L 03/03/18 06:15 MCV 86.2 fl (80.0-105.0) 03/03/18 06:15 MCH 27.4 pg (25.0-35.0) 03/03/18 06:15 MCHC 31.8 g/dl (31.0-37.0) 03/03/18 06:15 RDW 14.1 % (11.5-14.5) 03/03/18 06:15 Plt Count 635 10^3/uL (120.0-450.0) H 03/03/18 06:15 MPV 8.8 fl (7.0-11.0) 03/03/18 06:15 Gran % 57.2 % (50.0-68.0) 03/03/18 06:15 Lymph % (Auto) 27.1 % (22.0-35.0) 03/03/18 06:15 Quay % (Auto) 7.0 % (1.0-6.0) H 03/03/18 06:15 Eos % (Auto) 8.3 % (1.5-5.0) H 03/03/18 06:15 Baso % (Auto) 0.4 % (0.0-3.0) 03/03/18 06:15 Gran # 4.34 (1.4-6.5) 03/03/18 06:15 Lymph # (Auto) 2.1 (1.2-3.4) 03/03/18 06:15 Quay # (Auto) 0.5 (0.1-0.6) 03/03/18 06:15 Eos # (Auto) 0.6 (0.0-0.7) 03/03/18 06:15 Baso # (Auto) 0.03 K/mm3 (0.0-2.0) 03/03/18 06:15 PT 11.5 SECONDS (9.4-12.5) 02/17/18 10:15 INR 1.00 02/17/18 10:15 APTT 25.4 Seconds (25.1-36.5) 02/17/18 10:15 Sodium 137 mmol/L (132-148) 03/03/18 06:15 Potassium 4.4 mmol/L (3.6-5.0) 03/03/18 06:15 Chloride 105 mmol/L (98-107) 03/03/18 06:15 Carbon Dioxide 27 mmol/L (21-33) 03/03/18 06:15 Anion Gap 10 (10-20) 03/03/18 06:15 BUN 13 mg/dL (7-21) 03/03/18 06:15 Creatinine 0.9 mg/dl (0.8-1.5) 03/03/18 06:15 Est GFR ( Amer) > 60 03/03/18 06:15 Est GFR (Non-Af Amer) > 60 03/03/18 06:15 POC Glucose (mg/dL) 154 mg/dL (65-110) H 03/05/18 11:23 Random Glucose 170 mg/dL (70-110) H 03/03/18 06:15 Hemoglobin A1c 7.2 % (4.2-6.5) H 02/20/18 15:29 Calcium 8.8 mg/dL (8.4-10.5) 03/03/18 06:15 Magnesium 1.8 mg/dL (1.7-2.2) 02/17/18 10:15 Total Bilirubin 0.9 mg/dL (0.2-1.3) 02/27/18 07:00 AST 57 U/L (17-59) 02/27/18 07:00 ALT 79 U/L (7-56) H 02/27/18 07:00 Alkaline Phosphatase 79 U/L (38-126) 02/27/18 07:00 Lactate Dehydrogenase 480 U/L (333-699) 02/17/18 10:15 Total Creatine Kinase 117 U/L (35-230) 02/17/18 10:15 Troponin I < 0.01 ng/mL 02/17/18 10:15 Total Protein 6.6 g/dL (5.8-8.3) 02/27/18 07:00 Albumin 3.3 g/dL (3.0-4.8) 02/27/18 07:00 Globulin 3.3 gm/dL 02/27/18 07:00 Albumin/Globulin Ratio 1.0 (1.1-1.8) L 02/27/18 07:00 Procalcitonin 0.52 NG/ML (0.19-0.49) H 02/21/18 06:00 Urine Color Yellow (YELLOW) 02/20/18 08:06 Urine Appearance Sl cloudy (CLEAR) 02/20/18 08:06 Urine pH 6.5 (4.7-8.0) 02/20/18 08:06 Ur Specific [place] 1.020 (1.005-1.035) 02/20/18 08:06 Urine Protein Trace mg/dL (<30 mg/dL) H 02/20/18 08:06 Urine Glucose (UA) 250 mg/dL (NEGATIVE) H 02/20/18 08:06 Urine Ketones 15 mg/dL (NEGATIVE) H 02/20/18 08:06 Urine Blood Small (NEGATIVE) H 02/20/18 08:06 Urine Nitrate Negative (NEGATIVE) 02/20/18 08:06 Urine Bilirubin Negative (NEGATIVE) 02/20/18 08:06 Urine Urobilinogen 1.0 E.U./dL (<1 E.U./dL) H 02/20/18 08:06 Ur Leukocyte Esterase Negative Delvin/uL (NEGATIVE) 02/20/18 08:06 Urine RBC Negative /hpf (0-2) 02/20/18 08:06 Urine WBC 1 - 3 /hpf (0-6) 02/20/18 08:06 Ur Epithelial Cells 0 - 2 /hpf (0-5) 02/20/18 08:06 Urine Bacteria None (NEG) 02/19/18 21:43 HIV 1&2 Ag/Ab, 4th Gen Nonreactive (Nonreactive) 02/24/18 19:19 Influenza Typ A,B (EIA) Negative for flu a/b (NEGATIVE) 02/21/18 20:00 Blood Type O POSITIVE 02/21/18 14:17 Blood Type Confirm O POSITIVE 02/17/18 10:25 Antibody Screen Negative 02/21/18 14:17 Crossmatch See Detail 02/21/18 14:17 BBK History Checked Patient has bt 02/21/18 14:17 - Hospital Course Hospital Course: Patient is a 62 year old [place] male with no significant past medical history who presented complaining of severe right lower extremity pain status post fall. Patient indicates that he was on a rig and was attempting to open the truck door when he fell backwards onto his buttocks, specifically landing onto his right side. In the emergency department, his vital signs were stable except for a blood pressure of 151/102, which resolved later. Patient had chest x-ray which was negative for acute pathology. Labs were unremarkable. Patient had x-ray of the right femur which showed a comminuted displaced fracture of the proximal shaft of the femur with separation of the lesser trochanter. In the emergency department, patient was given Dilaudid 1mg IVP which he indicated helped with his pain. Patient had a CT of hip which showed acute common comminuted fracture proximal left femur with edematous changes primarily within adductor musculature. He endorsed right-hip/lower extremity pain with tingling the both legs. Patient denied chest pain, shortness of breath, night sweats, lightheadedness, dizziness, or fatigue. Hospital Course: 62 year old male admitted for right hip comminuted subtrochanteric fracture. Or thopedic Surgery was consulted who subsequently recommended open reduction, with intramedullary nail fixation. Patient underwent and tolerated said procedure on 02/18. On post op day 1 the patient started having fevers, which persisted to post op day 3. Patient met systemic inflammatory response syndrome criteria from undetermined source. Blood and urine cultures were taken. Infectious disease wa s consulted to further evaluate. Infectious disease recommended to start patient on Vancomycin and Zosyn, follow up blood and urine culture. Chest x-ray was taken which did not show any infiltrates. Rapid influenza test was found to be negative. By post day 4, Infectious disease recommended to discontinue Vancomycin and Zosyn since blood and urine culture were negative. White blood cell count was also within normal limits and patient was no longer febrile. Physical therapy evaluated patient and recommended discharge to subacute rehabilitation. There was an ongoing discussion regarding placement into a subacute rehabilitation program between patient's employer, patient's insurance provider, and various subacute rehabilitation programs in nearby area. Multiple multidisciplinary teams worked in finding subacute rehabilitation program that matched with patient's insurance group. )Patient has remained hospitalized where he worked with physical therapy daily. His overall physical condition, balance, weight bearing capability have improved. Patient wants to leave . Discharge plan: Patient is stable for discharge home as per Dr. Monroy. Patient was counseled to return to the emergency department if symptoms return or worsen. Patient is to follow up with Orthopedic Surgeon, Dr. Kat, within 1 week of discharge. Patient is to take Aspirin 325 mg orally twice daily for 1-2 weeks for ma nagement of deep venous thrombosis prophylaxis as well as Protonix. Counseled patient on the side effects of medication. Reviewed all medications with patient, and he understands instructions. Patient understands and agrees with discharge plan. Patient was prescribed walker and physical therapy. Patient has son at home as well to help him ambulate and take stairs safely. Disclaimer: Written above is a synopsis of patients current hospital admission. For full admission refer to EMR. Patient seen, case reviewed, and plan approved by Dr. Monroy. Discharge Exam - Additional Findings Additional findings: - Head Exam Head Exam: NORMAL INSPECTION - Additional Findings Additional findings: - Constitutional Appears: Non-toxic, No Acute Distress - Head Exam Head Exam: ATRAUMATIC, NORMAL INSPECTION, NORMOCEPHALIC - Eye Exam Eye Exam: EOMI, Normal appearance - ENT Exam ENT Exam: Mucous Membranes Moist, Normal Exam - Neck Exam Neck Exam: Full ROM, Normal Inspection - Respiratory Exam Respiratory Exam: Clear to Ausculation Bilateral, NORMAL BREATHING PATTERN - Cardiovascular Exam Cardiovascular Exam: RRR, +S1, +S2 - GI/Abdominal Exam GI & Abdominal Exam: Soft, Normal Bowel Sounds - Extremities Exam Extremities Exam: Normal Capillary Refill. absent: Calf Tenderness, Joint Swelling Additional comments: Right Lower Ext is s/p ORIF of the proximal femoral shaft. No signs of hematoma noted. [place] over incision removed. Improved ROM of lower extremities bilaterally. Distal pulses are intact. - Back Exam Back Exam: NORMAL INSPECTION - Neurological Exam Neurological Exam: Alert, Awake - Psychiatric Exam Psychiatric exam: Normal Affect, Normal Mood - Skin Skin Exam: Dry, Intact, Normal Color, Warm Discharge Plan - Discharge Medications Prescriptions: RX: Aspirin 325 mg PO BID #42 tab Pantoprazole Sodium [Protonix] 40 mg PO DAILY #30 ect - Follow Up Plan Condition: FAIR Disposition: HOME/ ROUTINE Patient education suggested?: Yes Instructions: Carbohydrate Counting Diet, Femur Fracture (DC), Low Carbohydrate Diet, Open Reduction and Internal Fixation Surgery (DC), Diabetic Meal Planning Additional Instructions: Please follow up in Dr. Kat orthopedic office within 7-10 days of discharge. Per ortho, please continue Aspirin 325 mg twice a day for 3-6 weeks. Please follow up in [facility] within 1-2 weeks. Appt was made for 03/13 at 4 pm. Please arrive half an hour before with ID and insurance card info. Please continue with medications (Aspirin and Protonix) as prescribed. Please fill the prescription for a walker for stability and for 3 weeks of outpatient physical therapy for strengthening. Should symptoms worsen or reoccur, please go to nearest emergency department. Referrals: Segundo Kat MD [Staff Provider] - <Fortino Monroy - Last Filed: 03/06/18 08:16> Provider - Provider Date of Admission: 02/17/18 11:10 Attending physician: Fortino Monroy MD Consults: 02/17/18 13:10 Consult [Physician Consult] Stat Comment: Consulting Provider: Segundo Kat Consulting Physician: Segundo Kat Reason for Consult: R-femoral neck fx 02/20/18 16:50 Physician Consult Routine Comment: Consulting Provider: James Gavin Consulting Physician: James Gavin Reason for Consult: worsening fever s/p ORIF femoral fx 02/22/18 14:34 Diabetic Education Referral Routine Comment: Physician Instructions: Reason For Exam: New DM2 diagnosis, medication, nutrition counselin Hospital Course - Lab Results Lab Results: Micro Results 02/20/18 00:22 Blood Blood Culture - Final NO GROWTH AFTER 5 DAYS 02/20/18 00:22 Blood Gram Stain - Final TEST NOT PERFORMED 02/19/18 14:00 Blood Blood Culture - Final NO GROWTH AFTER 5 DAYS 02/19/18 14:00 Blood Gram Stain - Final TEST NOT PERFORMED 02/19/18 13:45 Blood Blood Culture - Final NO GROWTH AFTER 5 DAYS 02/19/18 13:45 Blood Gram Stain - Final TEST NOT PERFORMED 02/20/18 13:00 Urine Urine Culture - Final No Growth (<1,000 CFU/ML) 02/19/18 21:43 Urine,Clean Catch Urine Culture - Final No Growth (<1,000 CFU/ML) Most Recent Lab Values WBC 7.6 10^3/uL (4.5-11.0) 03/03/18 06:15 RBC 3.83 10^6/uL (3.5-6.1) 03/03/18 06:15 Hgb 10.5 g/dL (14.0-18.0) L 03/03/18 06:15 Hct 33.0 % (42.0-52.0) L 03/03/18 06:15 MCV 86.2 fl (80.0-105.0) 03/03/18 06:15 MCH 27.4 pg (25.0-35.0) 03/03/18 06:15 MCHC 31.8 g/dl (31.0-37.0) 03/03/18 06:15 RDW 14.1 % (11.5-14.5) 03/03/18 06:15 Plt Count 635 10^3/uL (120.0-450.0) H 03/03/18 06:15 MPV 8.8 fl (7.0-11.0) 03/03/18 06:15 Gran % 57.2 % (50.0-68.0) 03/03/18 06:15 Lymph % (Auto) 27.1 % (22.0-35.0) 03/03/18 06:15 Quay % (Auto) 7.0 % (1.0-6.0) H 03/03/18 06:15 Eos % (Auto) 8.3 % (1.5-5.0) H 03/03/18 06:15 Baso % (Auto) 0.4 % (0.0-3.0) 03/03/18 06:15 Gran # 4.34 (1.4-6.5) 03/03/18 06:15 Lymph # (Auto) 2.1 (1.2-3.4) 03/03/18 06:15 Quay # (Auto) 0.5 (0.1-0.6) 03/03/18 06:15 Eos # (Auto) 0.6 (0.0-0.7) 03/03/18 06:15 Baso # (Auto) 0.03 K/mm3 (0.0-2.0) 03/03/18 06:15 PT 11.5 SECONDS (9.4-12.5) 02/17/18 10:15 INR 1.00 02/17/18 10:15 APTT 25.4 Seconds (25.1-36.5) 02/17/18 10:15 Sodium 137 mmol/L (132-148) 03/03/18 06:15 Potassium 4.4 mmol/L (3.6-5.0) 03/03/18 06:15 Chloride 105 mmol/L (98-107) 03/03/18 06:15 Carbon Dioxide 27 mmol/L (21-33) 03/03/18 06:15 Anion Gap 10 (10-20) 03/03/18 06:15 BUN 13 mg/dL (7-21) 03/03/18 06:15 Creatinine 0.9 mg/dl (0.8-1.5) 03/03/18 06:15 Est GFR ( Amer) > 60 03/03/18 06:15 Est GFR (Non-Af Amer) > 60 03/03/18 06:15 POC Glucose (mg/dL) 167 mg/dL (65-110) H 03/05/18 16:17 Random Glucose 170 mg/dL (70-110) H 03/03/18 06:15 Hemoglobin A1c 7.2 % (4.2-6.5) H 02/20/18 15:29 Calcium 8.8 mg/dL (8.4-10.5) 03/03/18 06:15 Magnesium 1.8 mg/dL (1.7-2.2) 02/17/18 10:15 Total Bilirubin 0.9 mg/dL (0.2-1.3) 02/27/18 07:00 AST 57 U/L (17-59) 02/27/18 07:00 ALT 79 U/L (7-56) H 02/27/18 07:00 Alkaline Phosphatase 79 U/L (38-126) 02/27/18 07:00 Lactate Dehydrogenase 480 U/L (333-699) 02/17/18 10:15 Total Creatine Kinase 117 U/L (35-230) 02/17/18 10:15 Troponin I < 0.01 ng/mL 02/17/18 10:15 Total Protein 6.6 g/dL (5.8-8.3) 02/27/18 07:00 Albumin 3.3 g/dL (3.0-4.8) 02/27/18 07:00 Globulin 3.3 gm/dL 02/27/18 07:00 Albumin/Globulin Ratio 1.0 (1.1-1.8) L 02/27/18 07:00 Procalcitonin 0.52 NG/ML (0.19-0.49) H 02/21/18 06:00 Urine Color Yellow (YELLOW) 02/20/18 08:06 Urine Appearance Sl cloudy (CLEAR) 02/20/18 08:06 Urine pH 6.5 (4.7-8.0) 02/20/18 08:06 Ur Specific [place] 1.020 (1.005-1.035) 02/20/18 08:06 Urine Protein Trace mg/dL (<30 mg/dL) H 02/20/18 08:06 Urine Glucose (UA) 250 mg/dL (NEGATIVE) H 02/20/18 08:06 Urine Ketones 15 mg/dL (NEGATIVE) H 02/20/18 08:06 Urine Blood Small (NEGATIVE) H 02/20/18 08:06 Urine Nitrate Negative (NEGATIVE) 02/20/18 08:06 Urine Bilirubin Negative (NEGATIVE) 02/20/18 08:06 Urine Urobilinogen 1.0 E.U./dL (<1 E.U./dL) H 02/20/18 08:06 Ur Leukocyte Esterase Negative Delvin/uL (NEGATIVE) 02/20/18 08:06 Urine RBC Negative /hpf (0-2) 02/20/18 08:06 Urine WBC 1 - 3 /hpf (0-6) 02/20/18 08:06 Ur Epithelial Cells 0 - 2 /hpf (0-5) 02/20/18 08:06 Urine Bacteria None (NEG) 02/19/18 21:43 HIV 1&2 Ag/Ab, 4th Gen Nonreactive (Nonreactive) 02/24/18 19:19 Influenza Typ A,B (EIA) Negative for flu a/b (NEGATIVE) 02/21/18 20:00 Blood Type O POSITIVE 02/21/18 14:17 Blood Type Confirm O POSITIVE 02/17/18 10:25 Antibody Screen Negative 02/21/18 14:17 Crossmatch See Detail 02/21/18 14:17 BBK History Checked Patient has bt 02/21/18 14:17 Attending/Attestation - Attestation I have personally seen and examined this patient.: Yes I have fully participated in the care of the patient.: Yes I have reviewed all pertinent clinical information, including history, physical exam and plan: Yes Notes (Text): 03/06/18 08:13 Medical record note made by the resident after discussion with my direction and input after the patient was personally seen and examined by me. I have reviewed the chart and agree that the record accurately reflects by personal performance of the history, physical exam, data review, and medical decision-making, in the course for the patient. I have also personally directed the plan of care. 62 year old male with no significant past medical history was admitted with fall, found to have comminuted displaced fracture of the proximal shaft of the femur with separation of the lesser trochanter, he is s/p ORIF POD #16 Post-op he had fever and was started on broad spectum antibiotics. However workup has been negative and antibiotics were discontinued. He was also found to have postop anemia which improved after PRBC transfusion. Hemoglobin is stable Thrombocytosis is reactive, improving Patient has been cleared by Physical therapy to be discharged home with out patient physical therapy. He will follow up with PCP and Orthopaedic. Management plan was discussed in detail with patient. Education was provided.
== END 2018-03-05 18:18 | disposition home or self-care (01) | DRG 558 ==
LOC: ED 10:03 → ERH 11:10 → 5RNO 12:52
PROVIDERS: ADMIT Hospitalist; ATTEND Internal Medicine
PROC: 30233N1 Transfusion of Nonautologous Red Blood Cells into Peripheral Vein, Percutaneous Approach (ICD-10-PCS; 2018-02-18)
PROC: 0QS606Z Reposition Right Upper Femur with Intramedullary Internal Fixation Device, Open Approach (ICD-10-PCS; principal; 2018-02-18 17:00)
DX: S72.21XA Displaced subtrochanteric fracture of right femur, initial encounter for closed fracture (principal); R65.10 Systemic inflammatory response syndrome (SIRS) of non-infectious origin without acute organ dysfunction; D62 Acute posthemorrhagic anemia; E87.5 Hyperkalemia; S01.511A Laceration without foreign body of lip, initial encounter; R50.82 Postprocedural fever; E11.9 Type 2 diabetes mellitus without complications; K59.00 Constipation, unspecified; I10 Essential (primary) hypertension; W17.89XA Other fall from one level to another, initial encounter; Y92.410 Unspecified street and highway as the place of occurrence of the external cause; Y99.0 Civilian activity done for income or pay; Z79.82 Long term (current) use of aspirin